=== PATIENT | male | born 1955 | race Caucasian/White ===

== ENCOUNTER 2019-04-15 14:42 | Inpatient (IN) ==
[2019-04-15] MEDS ORDERED: methylPREDNISolone SOD SUCC 125 MG/2 ML VIAL IV ONE (14:49)
[2019-04-15] MEDS ORDERED: IPRATROPIUM/ALBUTEROL 3 ML AMPUL.NEB NEB ONE ×2 (14:49→18:57)
--- NOTE | 2019-04-15 14:56 | Emergency Department Note ---
SOB HPI - General Chief Complaint: Shortness of Breath/Dyspnea Stated Complaint: shortness of breath O2 sat 55 Time Seen by Provider: 04/15/19 14:48 Source: patient, family Mode of arrival: wheelchair Limitations: no limitations - History of Present Illness Patient brought in by EMT shortness of breath and wheezing. POA is here with the patient states that he has been having increasing shortness of breath and wheezing with fever the past 2 days. She states he is DNRDNI has agreed that BiPAP would be acceptable. Patient is on nonrebreather mask at this time he arrives with sats very low in the 30s initially. poa states that he has severe COPD for many many years continues smoking. Patient at this time does not even want to use the nonrebreather mask Temperature is 98.5 his pulse is 100 respiratory rate 26 blood pressure 147/90 initial pulse I was 55% on room air when he arrives his sats are running 99-100 on nonrebreather mask at this time. Patient denies any chest pain pain patient is refusing BiPAP and DuoNeb he states he wants comfort care only - Related Data Home Medications Medication Instructions Recorded Confirmed albuterol 90 mcg/actuation aerosol 2 puff INHALATION QID PRN 04/04/17 04/14/19 inhaler budesonide-formoterol HFA 160 2 inh INHALATION BID 04/04/17 04/14/19 mcg-4.5 mcg/actuation aerosol inhaler carvedilol 3.125 mg tablet 3.125 mg PO BID 04/04/17 04/14/19 cholecalciferol (vitamin D3) 1,000 2,000 unit PO QDAY cap 04/04/17 04/14/19 unit capsule clopidogrel 75 mg tablet 75 mg PO QDAY 04/04/17 04/14/19 guaifenesin ER 600 mg tablet, 600 mg PO BID tab 04/04/17 04/14/19 extended release 12 hr ipratropium-albuterol 0.5 mg-3 3 ml INHALATION QID ml 04/04/17 04/14/19 mg(2.5 mg base)/3 mL nebulization soln losartan 100 mg tablet 100 mg PO QDAY 04/04/17 04/14/19 losartan 50 mg tablet 50 mg PO QDAY 04/04/17 04/14/19 magnesium oxide 420 mg tablet 420 mg PO BID 04/04/17 04/14/19 multivitamin capsule 1 tab-cap PO QDAY 04/04/17 04/14/19 pantoprazole 40 mg tablet,delayed 40 mg PO QAM 04/04/17 04/14/19 release pravastatin 40 mg tablet 40 mg PO QDAY tab 04/04/17 04/14/19 pravastatin 80 mg tablet 80 mg PO QDAY tab 04/04/17 04/14/19 thiamine HCl (vitamin B1) 100 mg 100 mg PO QDAY 04/04/17 04/14/19 tablet vitamin B complex capsule 1 cap PO QDAY 04/04/17 04/14/19 amlodipine 10 mg tablet 10 mg PO QDAY 12/31/18 04/14/19 bisoprolol fumarate 5 mg tablet 5 mg PO QDAY 12/31/18 04/14/19 calcium carbonate-vitamin D3 600 1 cap PO QDAY cap 12/31/18 04/14/19 mg calcium-200 unit capsule cyanocobalamin (vit B-12) 500 mcg 500 mcg PO QDAY 12/31/18 04/14/19 tablet doxycycline monohydrate 100 mg 100 mg PO BID 12/31/18 04/14/19 capsule fluconazole 100 mg tablet 200 mg PO QDAY 12/31/18 04/14/19 food supplement, lactose-reduced each PO TID ml 12/31/18 04/14/19 oral liquid loperamide 2 mg capsule 2 mg PO Q2-4H PRN 12/31/18 04/14/19 melatonin 3 mg tablet 6 mg PO HS PRN tab 12/31/18 04/14/19 omeprazole 20 mg capsule,delayed 20 mg PO BID cap 12/31/18 04/14/19 release prednisone 10 mg tablet 10 mg PO QDAY 12/31/18 04/14/19 pyridoxine (vitamin B6) 50 mg 100 mg PO QDAY cap 12/31/18 04/14/19 capsule sildenafil 100 mg tablet 100 mg PO ONCE 12/31/18 04/14/19 tamsulosin 0.4 mg capsule 0.4 mg PO QDAY 12/31/18 04/14/19 tiotropium bromide 18 mcg capsule 1 cap INHALATION QDAY 12/31/18 04/14/19 with inhalation device minocycline 100 mg capsule 100 mg PO BID 01/01/19 04/14/19 Allergies Allergy/AdvReac Type Severity Reaction Status Date / Time lisinopril Allergy Severe Anaphylaxis Verified 04/15/19 14:46 Varenicline AdvReac Mild Vomiting Verified 04/15/19 14:46 Review of Systems All systems ED: reviewed and negative except as stated. Constitutional: Reports: fever Eyes: Denies: eye pain ENT ED: Denies: ear pain, throat pain, dental pain Past Medical History - Past Medical History Medical history: Reports: COPD, CVA, liver disease, other (, peripheral vascular disease, recent urinary retention.) Surgical history ED: Reports: angioplasty/stent, appendectomy, vascular surgery - Social History smoking status: Current every day smoker Alcohol use: Reports: None Drug use: Reports: none Physical Exam Limitations: no limitations Course Vital Signs Temperature 98.5 F 04/15/19 14:43 Pulse Rate 100 H 04/15/19 14:43 Respiratory Rate 26 H 04/15/19 14:43 Blood Pressure 147/90 04/15/19 14:43 Pulse Oximetry (%) 55 L 04/15/19 14:43 Temperature 98.5 F 04/15/19 14:43 Pulse Rate 77 04/15/19 17:15 Respiratory Rate 25 H 04/15/19 17:30 Blood Pressure 143/82 04/15/19 17:30 Pulse Oximetry (%) 89 L 04/15/19 17:30 Shortness of Breath/Dyspnea - [facility] Narrative Medical decision making narrative: ABG show pH of 7.27 the CO2 64 the O2 is 104. Patient refuses BiPAP was refusing initially the DuoNeb however we were able to convince him to use the DuoNeb and the Solu-Medrol and does not want anything done he wants comfort care only and confirmed he is DNR/DNIUA shows greater than 182 WBCs and 10 RBCs few bacteria culture and sensitivity as indicated WBCs 5500 to hemoglobin 13.8 hematocrit of 42.1 Actiq acid is 1.4 sodium is 119 the potassium 4.4 function tests elevated AST is 84 ALT of 58 alk phosphatase 255 patient does drink alcohol patient does have home O2. ~The low sodium and the UTI patient has agreed to stay Dr. Germain will be contacted - Lab Data Result diagrams: 04/15/19 14:53 04/15/19 14:52 Lab Results 04/15/19 04/15/19 04/15/19 Range/Units 14:52 14:52 14:53 WBC 5.5 (4.5-11.0) K/mcL RBC 4.40 L (4.50-5.90) M/mcL Hgb 13.8 (13.5-16.5) g/dL Hct 42.1 (41.0-55.0) % MCV 95.5 (80.0-100.0) fL MCH 31.3 (26.0-34.0) pg MCHC 32.8 (31.0-36.0) g/dL RDW 16.4 H (11.5-14.5) % Plt Count 326 (140-440) K/mcL MPV 7.6 (7.4-10.4) fL Total Counted 100 Seg Neutrophils % 87 H (38-78) % Band Neutrophils % 2 (0-10) % Lymphocytes % 6 L (15-49) % Monocytes % (Manual) 5 (1-12) % Platelet Estimate Normal (NORMAL) RBC Morphology Abnorm A (NORMAL) Anisocytosis 1+ A (NONE SEEN) Target Cells Few A (NONE SEEN) Ovalocytes Few A (NONE SEEN) RBC Fragments Few A (NONE SEEN) VBG Lactic Acid 1.4 (0.5-2.0) mmol/L Sodium 119 L* (133-145) mmol/L Potassium 4.4 (3.3-5.1) mmol/L Chloride 79 L (96-108) mmol/L Carbon Dioxide 25 (22-30) mmol/L Anion Gap 15.0 (8-16) BUN 5 L (8-23) mg/dl Creatinine 0.3 L (0.7-1.2) mg/dl GFR Calculation 143 Glucose 113 H (70-105) mg/dL Calcium 8.5 L (8.6-10.4) mg/dl Total Bilirubin 0.3 (0.0-1.0) mg/dL AST 84 H (0-37) U/l ALT 58 H (0-40) U/l Alkaline Phosphatase 255 H (39-117) U/L NT-Pro-B Natriuret Pep 1079.0 H (0-125) pg/ml Total Protein 6.3 (5.9-8.4) gm/dL Albumin 3.6 (3.2-5.2) gm/dL Globulin 2.7 (2.2-3.7) gm/dL Albumin/Globulin Ratio 1.3 (1.0-2.3) Urine Color Urine Appearance Urine pH (5.0-9.0) Ur Specific [place] (1.000-1.035) Urine Protein (NEG) mg/dL Urine Glucose (UA) (NEG) mg/dL Urine Ketones (NEG) mg/dL Urine Occult Blood (<0.03) mg/dL Urine Nitrate (NEG) Urine Bilirubin (NEG) mg/dL Urine Urobilinogen (NEG) mg/dL Ur Leukocyte Esterase (NEG) /uL Urine RBC (0-1) /hpf Urine WBC (0-4) /hpf Ur Squamous Epith Cells (0-4) /hpf Urine Bacteria (0) /hpf Urine Mucus (0) /hpf Ur Culture Indicated? 04/15/19 Range/Units 15:56 WBC (4.5-11.0) K/mcL RBC (4.50-5.90) M/mcL Hgb (13.5-16.5) g/dL Hct (41.0-55.0) % MCV (80.0-100.0) fL MCH (26.0-34.0) pg MCHC (31.0-36.0) g/dL RDW (11.5-14.5) % Plt Count (140-440) K/mcL MPV (7.4-10.4) fL Total Counted Seg Neutrophils % (38-78) % Band Neutrophils % (0-10) % Lymphocytes % (15-49) % Monocytes % (Manual) (1-12) % Platelet Estimate (NORMAL) RBC Morphology (NORMAL) Anisocytosis (NONE SEEN) Target Cells (NONE SEEN) Ovalocytes (NONE SEEN) RBC Fragments (NONE SEEN) VBG Lactic Acid (0.5-2.0) mmol/L Sodium (133-145) mmol/L Potassium (3.3-5.1) mmol/L Chloride (96-108) mmol/L Carbon Dioxide (22-30) mmol/L Anion Gap (8-16) BUN (8-23) mg/dl Creatinine (0.7-1.2) mg/dl GFR Calculation Glucose (70-105) mg/dL Calcium (8.6-10.4) mg/dl Total Bilirubin (0.0-1.0) mg/dL AST (0-37) U/l ALT (0-40) U/l Alkaline Phosphatase (39-117) U/L NT-Pro-B Natriuret Pep (0-125) pg/ml Total Protein (5.9-8.4) gm/dL Albumin (3.2-5.2) gm/dL Globulin (2.2-3.7) gm/dL Albumin/Globulin Ratio (1.0-2.3) Urine Color Yellow Urine Appearance Cloudy Urine pH 7.0 (5.0-9.0) Ur Specific [place] 1.010 (1.000-1.035) Urine Protein 100 A (NEG) mg/dL Urine Glucose (UA) Negative (NEG) mg/dL Urine Ketones 5/tr A (NEG) mg/dL Urine Occult Blood 0.03 A (<0.03) mg/dL Urine Nitrate Neg (NEG) Urine Bilirubin Neg (NEG) mg/dL Urine Urobilinogen 2.0 A (NEG) mg/dL Ur Leukocyte Esterase 500 A (NEG) /uL Urine RBC 10 H (0-1) /hpf Urine WBC > 182 H (0-4) /hpf Ur Squamous Epith Cells 0 (0-4) /hpf Urine Bacteria Few A (0) /hpf Urine Mucus Few (0) /hpf Ur Culture Indicated? Yes Disposition Pt seen by [facility] only: No Clinical Impression: Hyponatremia, COPD exacerbation, UTI (urinary tract infection) Disposition: Xfer As Inpt ([facility]) Condition: Fair Referrals: Denice Bernabe ARNP [Primary Care Provider] -
--- NOTE | 2019-04-15 15:42 | XRay Report ---
CLINICAL INFORMATION: shortness of breath COMPARISON: 04/25/2018 plain film and chest CT 02/04/2018 FINDINGS: Heart size, mediastinum and pulmonary vessels are unremarkable. Known moderate COPD changes with minimal interstitial fibrosis stable. No acute findings. No effusions. Bones and soft tissues normal IMPRESSION: Moderate stable COPD changes Interpreted and Authenticated by: Cristi Dove 04/15/19
[2019-04-15 15:49] LABS: Hematocrit 42.1 % (41.0-55.0); Hemoglobin 13.8 g/dL (13.5-16.5); Mean Cell Volume 95.5 fL (80.0-100.0); Mean Corpuscular HGB Conc 32.8 g/dL (31.0-36.0); Mean Platelet Volume 7.6 fL (7.4-10.4); Platelet Count 326 K/mcL (140-440); Red Cell Distribution Width 16.4 % (11.5-14.5); WBC 5.5 K/mcL (4.5-11.0)
[2019-04-15 16:21] LABS: ALT/SGPT 58 U/l (0-40); AST/SGOT 84 U/l (0-37); Albumin 3.6 gm/dL (3.2-5.2); Albumin/Globulin Ratio 1.3 (1.0-2.3); Alkaline Phosphatase 255 U/L (39-117); Bilirubin,Total 0.3 mg/dL (0.0-1.0); Blood Urea Nitrogen 5 mg/dl (8-23); Calcium 8.5 mg/dl (8.6-10.4); Carbon Dioxide 25 mmol/L (22-30); Chloride 79 mmol/L (96-108); Globulin 2.7 gm/dL (2.2-3.7); Glomerular Filtration Rate 143; Glucose 113 mg/dL (70-105); Potassium 4.4 mmol/L (3.3-5.1); Sodium 119 mmol/L (133-145)
[2019-04-15 16:27] LABS: Anisocytosis 1+ (NONE SEEN); Band Neutrophils % 2 % (0-10); Lymphocytes % 6 % (15-49); Monocytes % (Manual) 5 % (1-12); Ovalocytes FEW (NONE SEEN); Platelet Estimate NORMAL (NORMAL); RBC Fragments FEW (NONE SEEN); RBC Morphology ABNORM (NORMAL); Segmented Neutrophils % 87 % (38-78); Target Cells FEW (NONE SEEN)
[2019-04-15 16:36] LABS: Appearance,Urine CLOUDY; Bacteria,Urine FEW /hpf (0); Bilirubin,Urine NEG (NEG); Color,Urine YELLOW; Culture Indicated,Urine YES; Glucose,Urine (UA) NEGATIVE (NEG); Ketones,Urine 5/TR mg/dL (NEG); Leukocyte Esterase,Urine 500 /uL (NEG); Mucus,Urine FEW /hpf (0); Nitrate,Urine NEG (NEG); Protein,Urine 100 mg/dL (NEG); Urine Blood 0.03 mg/dL (<0.03); Urine RBC 10 /hpf (0-1); Urine Squamous Epithelial Cell 0 /hpf (0-4); Urine WBC > 182 /hpf (0-4)
[2019-04-15] MEDS ORDERED: PIPERACILLIN SODIUM/TAZOBACTAM 3.375 GM in DEXTROSE 5% IN WATER 50 ML IV ONE (16:40)
--- NOTE | 2019-04-15 17:43 | Internal Med History&Physical ---
Medical - H&P: HPI Patient information: Note initiated : 04/15/19 at 5:35 pm Service Date, if different from initiated Date: [] Patient: Ankit Gandhi a 63 y/o M admitted on for shortness of breath O2 sat 55. Chief Complaint: [] Chief complaint: Shortness of breath, weakness and fever History of present illness: Mr. Gandhi is a 63 year old M paraplegic with history of advanced COPD and ac tive smoking who presents to the ER with 3 days onset of worsening shortness of breath along with increasing yellow productive sputum, fever. Patient tried to work with the symptoms however by this morning was barely able to breathe or talk prompting him to come to the ER. He denies exposure to sick contact. Endorses to increasing shortness of breath to the point he has not been able to sleep for the last 48 hours. Has become extremely anxious labored with a feeling of impending doom. Initial work-up in the ER was consistent with acute COPD exacerbation with hypercapnia with a pH of 7.27/64 PCO2. Patient was also profoundly hyponatremic at 119 and demonstrated fluctuating mental status. 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 He is accompanied with his sister. He has paraplegic since 2-1/2 years ago and confined to bed with occasional mobility using a wheelchair. He has a friend who helps him with activities of daily living. Over time he has progressively lost weight and currently down to a BMI of 15. He denies diarrhea, headache, photophobia. He has a chronic indwelling Sanchez's catheter and sees Dr. Fernandes urologist. He denies joint pain, rash, glandular swelling. Review of systems 10 point review of system was performed and is negative except was discussed above Medical - H&P: PMH Medical history: Wheelchair bound (Chronic) Decreased sensation of lower extremity (Chronic) Lower extremity weakness (Chronic) Vascular disease (Chronic) Hypertension (Chronic) Bladder distention (Chronic) Pelvic pain in male (Chronic) Paraplegia (Chronic) Retention of urine (Chronic) UTI (urinary tract infection) (Chronic) Contusion of rib on right side (Chronic) Migraine (Chronic) Stroke (Chronic) Bruit (Chronic) Colonic polyp (Chronic) Benign essential hypertension (Chronic) Hyponatremia (Chronic) Lumbago (Chronic) Depressive disorder (Chronic) Hyperlipidemia, unspecified (Chronic) Neuralgia and neuritis, unspecified (Chronic) Migraine, unspecified, not intractable, without status migrainosus (Chronic) Symptoms involving cardiovascular system (Chronic) Reflux esophagitis (Chronic) Esophageal reflux (Chronic) Sensorineural hearing loss (Chronic) Peripheral vascular disease (Chronic) Benign neoplasm of large bowel (Chronic) Disc degeneration, lumbosacral (Chronic) Fracture of metacarpal neck, closed (Chronic) Alcohol dependence in remission (Chronic) Shoulder joint pain (Chronic) Rotator cuff syndrome (Chronic) Abnormal liver function test (Chronic) Alcohol abuse with unspecified alcohol-induced disorder (Chronic) Tobacco use (Chronic) Chronic obstructive pulmonary disease, unspecified (Chronic) Brain stem stroke syndrome (Chronic) Angioneurotic edema, subsequent encounter (Chronic) Edema, unspecified (Chronic) Hypo-osmolality and hyponatremia (Chronic) Other nonspecific abnormal finding of lung field (Chronic) Essential (primary) hypertension (Chronic) Contusion of thorax, unspecified, sequela (Chronic) Collapse of right lung (Chronic) Surgical History History of [id number] bypass (Chronic) History of appendectomy (Chronic) History of fusion of cervical spine (Chronic) History of hand surgery (Chronic) Right History of tonsillectomy (Chronic) Family History Father Lung cancer Heart attack Throat cancer Mother Breast cancer Sister , with breast cancer Breast cancer Grandfather Heart attack Social History service: Yes smoking status: Current every day 1.5 Pk smoker tobacco type: cigarettes quit status: not considering quitting alcohol intake frequency: 2+ drinks per day substance use type: does not use additional history: 18 Beers a day Medical - H&P: Meds Home Medications Medication Instructions Recorded Confirmed Type albuterol 90 mcg/actuation aerosol 2 puff INHALATION QID PRN 04/04/17 04/14/19 History inhaler budesonide-formoterol HFA 160 2 inh INHALATION BID 04/04/17 04/14/19 History mcg-4.5 mcg/actuation aerosol inhaler carvedilol 3.125 mg tablet 3.125 mg PO BID 04/04/17 04/14/19 History cholecalciferol (vitamin D3) 1,000 2,000 unit PO QDAY cap 04/04/17 04/14/19 History unit capsule clopidogrel 75 mg tablet 75 mg PO QDAY 04/04/17 04/14/19 History guaifenesin ER 600 mg tablet, 600 mg PO BID tab 04/04/17 04/14/19 History extended release 12 hr ipratropium-albuterol 0.5 mg-3 3 ml INHALATION QID ml 04/04/17 04/14/19 History mg(2.5 mg base)/3 mL nebulization soln losartan 100 mg tablet 100 mg PO QDAY 04/04/17 04/14/19 History losartan 50 mg tablet 50 mg PO QDAY 04/04/17 04/14/19 History magnesium oxide 420 mg tablet 420 mg PO BID 04/04/17 04/14/19 History multivitamin capsule 1 tab-cap PO QDAY 04/04/17 04/14/19 History pantoprazole 40 mg tablet,delayed 40 mg PO QAM 04/04/17 04/14/19 History release pravastatin 40 mg tablet 40 mg PO QDAY tab 04/04/17 04/14/19 History pravastatin 80 mg tablet 80 mg PO QDAY tab 04/04/17 04/14/19 History thiamine HCl (vitamin B1) 100 mg 100 mg PO QDAY 04/04/17 04/14/19 History tablet vitamin B complex capsule 1 cap PO QDAY 04/04/17 04/14/19 History amlodipine 10 mg tablet 10 mg PO QDAY 12/31/18 04/14/19 History bisoprolol fumarate 5 mg tablet 5 mg PO QDAY 12/31/18 04/14/19 History calcium carbonate-vitamin D3 600 1 cap PO QDAY cap 12/31/18 04/14/19 History mg calcium-200 unit capsule cyanocobalamin (vit B-12) 500 mcg 500 mcg PO QDAY 12/31/18 04/14/19 History tablet doxycycline monohydrate 100 mg 100 mg PO BID 12/31/18 04/14/19 History capsule fluconazole 100 mg tablet 200 mg PO QDAY 12/31/18 04/14/19 History food supplement, lactose-reduced each PO TID ml 12/31/18 04/14/19 History oral liquid loperamide 2 mg capsule 2 mg PO Q2-4H PRN 12/31/18 04/14/19 History melatonin 3 mg tablet 6 mg PO HS PRN tab 12/31/18 04/14/19 History omeprazole 20 mg capsule,delayed 20 mg PO BID cap 12/31/18 04/14/19 History release prednisone 10 mg tablet 10 mg PO QDAY 12/31/18 04/14/19 History pyridoxine (vitamin B6) 50 mg 100 mg PO QDAY cap 12/31/18 04/14/19 History capsule sildenafil 100 mg tablet 100 mg PO ONCE 12/31/18 04/14/19 History tamsulosin 0.4 mg capsule 0.4 mg PO QDAY 12/31/18 04/14/19 History tiotropium bromide 18 mcg capsule 1 cap INHALATION QDAY 12/31/18 04/14/19 History with inhalation device minocycline 100 mg capsule 100 mg PO BID 01/01/19 04/14/19 History Allergies Allergy/AdvReac Type Severity Reaction Status Date / Time lisinopril Allergy Severe Anaphylaxis Verified 04/15/19 14:46 Varenicline AdvReac Mild Vomiting Verified 04/15/19 14:46 Medical - H&P: Exam - Constitutional Vitals: Temp Pulse Resp BP Pulse Ox 98.5 F 77 25 H 143/82 89 L 04/15/19 14:43 04/15/19 17:15 04/15/19 17:30 04/15/19 17:30 04/15/19 17:30 General appearance: severe distress, thin Exam: Extremely short of breath labored and distressed Unable to talk in full sentences Fluctuating mentation Head normocephalic Temporal wasting oral cavity dry No ear nose discharge Tachypneic with widespread rhonchi, intercostal retractions/barrel chest S1-S2 tachycardia Abdomen scaphoid Sanchez's catheter Lower extremity paralyzed without motor or sensory function Skin no suspicious lesion except for pallor Psych lethargic but cooperative Neuro waist down paraplegic, fluctuating mental status Medical - H&P: Reslt - Labs CBC & Chem 7: 04/16/19 03:50 04/16/19 08:26 Labs: Short CBC 04/15/19 Range/Units 14:53 WBC 5.5 (4.5-11.0) K/mcL Hgb 13.8 (13.5-16.5) g/dL Hct 42.1 (41.0-55.0) % Plt Count 326 (140-440) K/mcL BMP 04/15/19 14:52 Sodium 119 L* Potassium 4.4 Chloride 79 L Carbon Dioxide 25 BUN 5 L Creatinine 0.3 L Glucose 113 H Calcium 8.5 L Liver Function 04/15/19 Range/Units 14:52 Total Bilirubin 0.3 (0.0-1.0) mg/dL AST 84 H (0-37) U/l ALT 58 H (0-40) U/l Alkaline Phosphatase 255 H (39-117) U/L Albumin 3.6 (3.2-5.2) gm/dL Urine 04/15/19 Range/Units 15:56 Urine Color Yellow Urine Appearance Cloudy Urine pH 7.0 (5.0-9.0) Ur Specific [place] 1.010 (1.000-1.035) Urine Protein 100 A (NEG) mg/dL Urine Glucose (UA) Negative (NEG) mg/dL Medical - H&P: A/P (1) Acute hypercapnic respiratory failure Current visit: Yes Status: Acute * Acute hypercapnic respiratory failure secondary to COPD exacerbation. pH 7.27. Initiate BiPAP. Transfer to ICU. Serial ABG * COPD exacerbation-secondary to smoking likely precipitated by infection. Start bronchodilators/IV steroids/supplemental oxygen and antibiotic coverage. High risk mortality. Patient follows up outpatient with Dr. Colindres.. * Severe hyponatremia likely secondary to excessive alcoholism. Check urine and serum osmolality with urine sodium. Rule out SIADH. Continue 4 hours sodium checks. Close seizure watch/neurochecks * Complicated UTI start antibiotic [id number] based on cultures. Renal ultrasound to rule out obstructive uropathy. * Elevated LFTs secondary to sepsis endorgan dysfunction/underlying alcoholism. 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 * Continue noninvasive ventilation * 4 hourly sodium checks/neuro check/seizure watch * Antibiotic coverage * Renal ultrasound Critical care time spent over 35 minutes on stabilizing patient/treatment coordination/labs blood gas imaging interpretation in addition to 70 minutes spent on history and physical
[2019-04-15] MEDS ORDERED: MELATONIN 3 MG TABLET PO PRN (18:27)
[2019-04-15] MEDS ORDERED: traZODone HCL 50 MG TABLET PO PRN (18:27)
[2019-04-15] MEDS ORDERED: ACETAMINOPHEN 1,000 MG/100 ML BOTTLE IV PRN (18:27)
[2019-04-15] MEDS ORDERED: ONDANSETRON 4 MG/2 ML VIAL IV PRN (18:27)
[2019-04-15] MEDS ORDERED: POTASSIUM CHLORIDE 20 MEQ PACKET PO PRN (18:27)
[2019-04-15] MEDS ORDERED: MAGNESIUM SULFATE 2 GM/50 ML BAG IV PRN (18:27)
[2019-04-15] MEDS ORDERED: ACETAMINOPHEN 325 MG TABLET PO PRN (18:27)
[2019-04-15] MEDS ORDERED: BISACODYL 10 MG SUPP.RECT PR PRN (18:27)
[2019-04-15] MEDS ORDERED: hydrALAZINE 20 MG/ML VIAL IV PRN (18:27)
[2019-04-15] MEDS ORDERED: MAGNESIUM HYDROXIDE 30 ML ORAL.SUSP PO PRN (18:27)
[2019-04-15] MEDS ORDERED: guaiFENesin/CODEINE 10 ML UDC PO PRN (18:27)
[2019-04-15] MEDS ORDERED: BUDESONIDE 0.5 MG/2 ML AMPUL.NEB NEB ONE (18:57)
[2019-04-15 19:05] LABS: Sodium, Urine Random 44 mmol/L
[2019-04-15] MEDS: IPRATROPIUM/ALBUTEROL 3 ML AMPUL.NEB NEB SCH ×2 (19:11→22:33)
[2019-04-15] MEDS: BUDESONIDE 0.5 MG/2 ML AMPUL.NEB NEB SCH (19:12)
[2019-04-15 19:15] LABS: Osmolality,Urine 272 mOsm/kg (80-1000)
[2019-04-15] MEDS: 0.9 % SODIUM CHLORIDE 1,000 ML IV SCH (19:38)
[2019-04-15] MEDS: METOPROLOL TARTRATE 5 MG/5 ML VIAL IV SCH ×2 (19:51→19:52)
[2019-04-15] MEDS: DOCUSATE SODIUM 100 MG CAPSULE PO SCH (19:53)
[2019-04-15] MEDS: SENNOSIDES/DOCUSATE SODIUM 1 TAB TABLET PO SCH (19:53)
[2019-04-15] MEDS: HEPARIN 5,000 UNIT/ML VIAL SQ SCH (20:04)
[2019-04-15] MEDS: methylPREDNISolone SOD SUCC 125 MG/2 ML VIAL IV SCH ×2 (20:04→23:56)
[2019-04-15] MEDS: CYANOCOBALAMIN (VITAMIN B-12) 500 MCG TABLET PO SCH (20:04)
[2019-04-15] MEDS: 0.9 % SODIUM CHLORIDE 10 ML SYRINGE IV SCH (20:06)
[2019-04-15 21:30] LABS: Sodium 117 mmol/L (133-145)
[2019-04-15] MEDS ORDERED: BISMUTH SUBSALICYLATE 15 ML ORAL.SUSP PO PRN (23:11)
[2019-04-15] MEDS: PIPERACILLIN SODIUM/TAZOBACTAM 3.375 GM in DEXTROSE 5% IN WATER 50 ML IV SCH (23:54)
[2019-04-16 02:26] LABS: Sodium 119 mmol/L (133-145)
[2019-04-16] MEDS: IPRATROPIUM/ALBUTEROL 3 ML AMPUL.NEB NEB SCH ×6 (04:51→23:26)
[2019-04-16] MEDS: PIPERACILLIN SODIUM/TAZOBACTAM 3.375 GM in DEXTROSE 5% IN WATER 50 ML IV SCH ×3 (05:21→17:34)
[2019-04-16] MEDS: 0.9 % SODIUM CHLORIDE 10 ML SYRINGE IV SCH ×3 (05:21→22:02)
[2019-04-16] MEDS: methylPREDNISolone SOD SUCC 125 MG/2 ML VIAL IV SCH ×3 (05:22→18:06)
[2019-04-16 05:30] LABS: Hematocrit 39.5 % (41.0-55.0); Hemoglobin 13.4 g/dL (13.5-16.5); Mean Cell Volume 92.7 fL (80.0-100.0); Mean Platelet Volume 7.7 fL (7.4-10.4); Platelet Count 294 K/mcL (140-440); RBC 4.26 M/mcL (4.50-5.90); Red Cell Distribution Width 14.8 % (11.5-14.5); WBC 2.2 K/mcL (4.5-11.0)
--- NOTE | 2019-04-16 05:35 | Ultrasound Report ---
CLINICAL INFORMATION: uti- r/o obstr uropathy COMPARISON: Abdomen and pelvic CT nearly one year prior 05/26/2018 abdominal ultrasound 01/04/2009 FINDINGS: Chronic atrophy of the left kidney is unchanged: 6.4 x 3 cm. Left renal parenchyma is echogenic and thin. There is compensatory hypertrophy of the right kidney appreciated: 12 x 6 cm. Parenchymal echotexture of the right kidney is normal. There are no right renal lesions. In the mid kidney, there is a 14 mm hypoechoic lesion which was not seen on previous study. This may represent a solid lesion or complex cyst. There are three smaller subcentimeter cysts seen in the left kidney. No hydronephrosis or stone. Patient was catheterized: urine bladder grossly normal. IMPRESSION: 1. 14 mm hypoechoic lesion mid left kidney new from previous studies. It is more likely complex cyst than a solid lesion. Suggest: CT. If creatinine is elevated then MR is suggested. 2-3 subcentimeter cystic lesions in the left kidney 2. Moderate atrophy of the left kidney with elevated renal echotexture compatible with medical renal disease. No change. Compensatory hypertrophy of the right kidney Interpreted and Authenticated by: Cristi Dove 04/16/19
[2019-04-16 05:40] LABS: ALT/SGPT 51 U/l (0-40); AST/SGOT 67 U/l (0-37); Albumin 3.2 gm/dL (3.2-5.2); Albumin/Globulin Ratio 1.1 (1.0-2.3); Alkaline Phosphatase 218 U/L (39-117); Bilirubin,Direct < 0.2 mg/dL (0.0-0.3); Bilirubin,Total 0.2 mg/dL (0.0-1.0); Blood Urea Nitrogen 7 mg/dl (8-23); Calcium 7.7 mg/dl (8.6-10.4); Carbon Dioxide 23 mmol/L (22-30); Chloride 79 mmol/L (96-108); Globulin 2.8 gm/dL (2.2-3.7); Glomerular Filtration Rate 143; Glucose 96 mg/dL (70-105); Lactate Dehydrogenase 236 U/L (94-250); Magnesium 1.8 mg/dL (1.6-2.5); Phosphorous 2.9 mg/dL (2.7-4.5); Potassium 3.5 mmol/L (3.3-5.1); Sodium 120 mmol/L (133-145); Triglycerides 54 mg/dl (<150); Uric Acid 2.2 mg/dL (2.5-8.0)
[2019-04-16] MEDS: BUDESONIDE 0.5 MG/2 ML AMPUL.NEB NEB SCH ×2 (07:15→18:53)
[2019-04-16 08:03] LABS: Band Neutrophils % 4 % (0-10); Lymphocytes % 14 % (15-49); Monocytes % (Manual) 2 % (1-12); Platelet Estimate NORMAL (NORMAL); Polychromasia 1+ (NONE SEEN); RBC Fragments RARE (NONE SEEN); RBC Morphology ABNORM (NORMAL); Reactive Lymphocytes 1 % (0-2); Segmented Neutrophils % 79 % (38-78)
[2019-04-16] MEDS: NACL 0.9% W/KCL 20MEQ 1,000 ML IV SCH ×2 (09:56→17:05)
[2019-04-16] MEDS: FUROSEMIDE 20 MG/2 ML VIAL IV SCH ×3 (09:59→22:21)
[2019-04-16 10:00] LABS: Sodium 118 mmol/L (133-145)
[2019-04-16] MEDS: HEPARIN 5,000 UNIT/ML VIAL SQ SCH ×2 (10:05→22:21)
--- NOTE | 2019-04-16 10:22 | Internal Med Progress Note ---
Medical - PN: Subj Patient information: Note initiated : 04/16/19 at 10:20 am Service Date, if different from initiated Date: [] Patient: Ankit Gandhi a 63 y/o M admitted on 04/15/19 for shortness of breath O2 sat 55. Chief Complaint: [] Interval history: Mr. Gandhi is a 63 year old M paraplegic with history of advanced COPD and active smoking who presents to the ER with 3 days onset of worsening shortness of breath along with increasing yellow productive sputum, fever. Patient tried to work with the symptoms however by this morning was barely able to breathe or talk prompting him to come to the ER. He denies exposure to sick contact. Endorses to increasing shortness of breath to the point he has not been able to sleep for the last 48 hours. Has become extremely anxious labored with a feeling of impending doom. Initial work-up in the ER was consistent with acute COPD exacerbation with hypercapnia with a pH of 7.27/64 PCO2. Patient was also profoundly hyponatremic at 119 and demonstrated fluctuating mental status. 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 He is accompanied with his sister. He has paraplegic since 2-1/2 years ago and confined to bed with occasional mobility using a wheelchair. He has a friend who helps him with activities of daily living. Over time he has progressively lost weight and currently down to a BMI of 15. He denies diarrhea, headache, photophobia. He has a chronic indwelling Sanchez's catheter and sees Dr. Fernandes urologist. He denies joint pain, rash, glandular swelling. 04/17-patient critically ill with worsening shortness of breath. Unable to sleep last night. Unable to talk in full sentences. Persistent hypoxia with tachypnea and tachycardia requiring 4 L oxygen. Requesting something to sleep. Patient refusing noninvasive ventilation due to claustrophobia. Understands these risk for imminent . Continue steroids/bronchodilators. Sodium 118. Urine osmolality greater than serum osmolarity indicating component of SIADH. On antibiotic coverage for complicated UTI. GNR on urine culture - Constitutional Vitals: Vital Signs Temp Pulse Resp BP Pulse Ox 98.1 F 97 H 22 155/74 94 04/16/19 08:01 04/16/19 08:01 04/16/19 08:20 04/16/19 08:01 04/16/19 08:01 Period Temp Pulse Resp BP Sys/Hensley Pulse Ox Last 24 Hr 97.7 F-98.5 F 72-122 17-44 118-168/65-152 55-100 Intake and Output 04/15/19 04/16/19 04/16/19 21:59 05:59 13:59 Intake Total 50 590 50 Output Total 800 1200 Balance -750 -610 50 Weight 108 lb 14.4 oz Intake & Output: Intake & Output 04/15/19 04/16/19 04/16/19 21:59 05:59 13:59 Intake Total 50 590 50 Output Total 800 1200 Balance -750 -610 50 Weight 108 lb 14.4 oz Intake: IV 50 50 Zosyn 3.375 gm In Dextrose 5% 50 50 in Water 50 ml @ 100 mls/hr IV Q6H SAL Rx#:[id number] Oral 540 50 Output: Urine Catheter Amount 800 1200 Other: Urine Appearance Cloudy Clear Urine Color Dark Yellow Pale Urine Odor Uretheral (Sanchez) Normal Exam: Cachectic and thin extremely labored and anxious In distress Extensive rhonchi, barrel chest Temporal and extensive muscular wasting/atrophy Medical - PN: Obj Da - Labs CBC & Chem 7: 04/16/19 03:50 04/16/19 08:26 Labs: Abnormal Lab Results 04/16/19 04/16/19 04/16/19 08:26 03:50 03:50 WBC 2.2 L RBC 4.26 L Hgb 13.4 L Hct 39.5 L RDW 14.8 H Seg Neutrophils % 79 H Lymphocytes % 14 L RBC Morphology Abnorm A Polychromasia 1+ A Anisocytosis Target Cells Ovalocytes RBC Fragments Rare A Sodium 118 L* 120 L Chloride 79 L Anion Gap 18.0 H BUN 7 L Creatinine 0.3 L Glucose Osmolality Uric Acid 2.2 L Calcium 7.7 L GGT 172 H AST 67 H ALT 51 H Alkaline Phosphatase 218 H NT-Pro-B Natriuret Pep Urine Protein Urine Ketones Urine Occult Blood Urine Urobilinogen Ur Leukocyte Esterase Urine RBC Urine WBC Urine Bacteria 04/16/19 04/15/19 04/15/19 00:10 19:57 18:27 WBC RBC Hgb Hct RDW Seg Neutrophils % Lymphocytes % RBC Morphology Polychromasia Anisocytosis Target Cells Ovalocytes RBC Fragments Sodium 119 L* 117 L* Chloride Anion Gap BUN Creatinine Glucose Osmolality 245 L Uric Acid Calcium GGT AST ALT Alkaline Phosphatase NT-Pro-B Natriuret Pep Urine Protein Urine Ketones Urine Occult Blood Urine Urobilinogen Ur Leukocyte Esterase Urine RBC Urine WBC Urine Bacteria 04/15/19 04/15/19 04/15/19 15:56 14:53 14:52 WBC RBC 4.40 L Hgb Hct RDW 16.4 H Seg Neutrophils % 87 H Lymphocytes % 6 L RBC Morphology Abnorm A Polychromasia Anisocytosis 1+ A Target Cells Few A Ovalocytes Few A RBC Fragments Few A Sodium 119 L* Chloride 79 L Anion Gap BUN 5 L Creatinine 0.3 L Glucose 113 H Osmolality Uric Acid Calcium 8.5 L GGT AST 84 H ALT 58 H Alkaline Phosphatase 255 H NT-Pro-B Natriuret Pep 1079.0 H Urine Protein 100 A Urine Ketones 5/tr A Urine Occult Blood 0.03 A Urine Urobilinogen 2.0 A Ur Leukocyte Esterase 500 A Urine RBC 10 H Urine WBC > 182 H Urine Bacteria Few A Meds: Medications Acetaminophen (Tylenol) 650 mg PO Q4-6HP PRN PRN Reason: PAIN/FEVER > 101 Albuterol/Ipratropium (Duoneb) 3 ml NEB Q4HRT [facility] Last Admin: 04/16/19 07:15 Dose: 3 ml Documented by: Bisacodyl (Dulcolax) 10 mg WV Q2-3DAYS PRN PRN Reason: Constipation Bismuth Subsalicylate (Pepto Bismol) 15 ml PO Q4HP PRN PRN Reason: Dyspepsia Last Admin: 04/15/19 23:25 Dose: 15 ml Documented by: Budesonide (Pulmicort) 0.5 mg NEB Q12 [facility] Last Admin: 04/16/19 07:15 Dose: 0.5 mg Documented by: Cyanocobalamin (Vitamin B-12) 1,000 mcg PO BID [facility] Stop: 04/20/19 09:01 Last Admin: 04/15/19 20:04 Dose: 1,000 mcg Documented by: Docusate Sodium (Colace) 100 mg PO BID [facility] Last Admin: 04/15/19 19:53 Dose: Not Given Documented by: Folic Acid (Folic Acid) 1 mg PO DAILY [facility] Furosemide (Lasix) 20 mg IV Q8 [facility] Stop: 04/16/19 22:01 Last Admin: 04/16/19 09:59 Dose: 20 mg Documented by: Guaifenesin/Codeine Phosphate (Robitussin Ac) 10 ml PO Q4HP PRN PRN Reason: Cough Heparin Sodium (Porcine) (Heparin) 5,000 unit SQ Q12 [facility] Last Admin: 04/16/19 10:05 Dose: 5,000 unit Documented by: Hydralazine HCl (Apresoline) 10 mg IV Q4-6HP PRN PRN Reason: Hypertension Magnesium Sulfate (Magnesium Sulfate) 2 gm in 50 mls @ 50 mls/hr IV UD PRN PRN Reason: MG = or < 1.7 Sodium Chloride (Sodium Chloride 0.9%) 1,000 mls @ 50 mls/hr IV .Q20H [facility] Stop: 04/18/19 06:26 Last Admin: 04/15/19 19:38 Dose: 50 mls/hr Documented by: Acetaminophen (Ofirmev) 1,000 mg in 100 mls @ 200 mls/hr IV Q6HP PRN PRN Reason: PAIN/FEVER > 101 Last Admin: 04/16/19 08:07 Dose: 200 mls/hr Documented by: Piperacillin Sod/Tazobactam (Sod 3.375 gm/ Dextrose) 50 mls @ 100 mls/hr IV Q6H [facility]; Protocol Last Admin: 04/16/19 05:21 Dose: 100 mls/hr Documented by: Potassium Chloride/Sodium Chloride (Nacl 0.9% W/Kcl 20meq 1000ml) 1,000 mls @ 150 mls/hr IV .Q6H40M [facility] Stop: 04/17/19 08:44 Last Admin: 04/16/19 09:56 Dose: 150 mls/hr Documented by: Iron Carb/Multivit/[place]S/Folic Acid (Multivitamin W/Minerals) 1 tab PO DAILY [facility] Lorazepam (Ativan) 0.5 mg IV Q6HP PRN PRN Reason: ANXIETY/SEDATION Magnesium Hydroxide (Milk Of Magnesia) 30 ml PO HSP PRN PRN Reason: Constipation Melatonin (Melatonin 3mg Tablet) 3 mg PO HSP PRN PRN Reason: Insomnia Methylprednisolone Sodium Succinate (Solu-Medrol) 60 mg IV Q6 [facility] Last Admin: 04/16/19 05:22 Dose: 60 mg Documented by: Morphine Sulfate (Morphine) 1 mg IV Q4HP PRN PRN Reason: PAIN LEVEL > 6 Last Admin: 04/16/19 10:07 Dose: 1 mg Documented by: Ondansetron HCl (Zofran) 4 mg IV Q4-6HP PRN PRN Reason: Nausea And Vomiting Potassium Chloride (Klor-Con) 40 meq PO DAILYP PRN PRN Reason: K+ < 3.5 Senna/Docusate Sodium (Senna Plus Tablet) 1 tab PO HS [facility] Last Admin: 04/15/19 19:53 Dose: Not Given Documented by: Sodium Chloride (Saline Flush) 10 ml IV Q8 [facility] Last Admin: 04/16/19 05:21 Dose: Not Given Documented by: Thiamine HCl (Vitamin B1) 100 mg PO DAILY [facility] Trazodone HCl (Desyrel) 50 mg PO HSP PRN PRN Reason: Insomnia Medical - PN: A/P - Time Spent With Patient Total time spent is greater than 50% in coordination of care (as documented) at patient's floor/unit and/or counseling patient: 25 - 35 minutes (1) Acute hypercapnic respiratory failure Status: Acute Assessment and plan: * Acute hypercapnic respiratory failure secondary to COPD exacerbation. pH 7.27. Patient refused BiPAP. Critically ill. * Acute exacerbation of COPD. Continue IV steroids/bronchodilators/supplemental oxygen and antibiotic coverage. Remains a very high risk mortality. Patient follows up outpatient with Dr. Colindres.. * Severe hyponatremia , SIADH/alcoholism. Continue free water restriction/salt tabs and gentle saline infusion. Target sodium 127 in 24 hours * Complicated GNR UTI -continue antibiotic [id number] based on cultures. Renal ultrasound no evidence of a study uropathy but shows 14 mm left kidney lesion. * 14 mm left kidney lesion-will need further evaluation at a later date * Elevated LFTs secondary to sepsis endorgan dysfunction/underlying alcoholism. 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 * Free water restriction/gentle saline infusion * Protein calorie supplements/multivitamins/minerals Current Visit: Yes Medical - PN: Qual - VTE Deep Vein Thrombosis/Pulmonary Embolism Present on Admission: No
[2019-04-16] MEDS: FOLIC ACID 1 MG TABLET PO SCH (12:09)
[2019-04-16] MEDS: DOCUSATE SODIUM 100 MG CAPSULE PO SCH ×2 (12:12→22:01)
[2019-04-16] MEDS: MULTIVIT,THER IRON,CA,FA & MIN 1 TABLET PO SCH (13:06)
[2019-04-16] MEDS: CYANOCOBALAMIN (VITAMIN B-12) 500 MCG TABLET PO SCH ×2 (13:06→22:02)
[2019-04-16] MEDS: THIAMINE 100 MG TABLET PO SCH (13:06)
[2019-04-16] MEDS: 0.9 % SODIUM CHLORIDE 1,000 ML IV SCH (13:20)
[2019-04-16 14:59] LABS: Sodium 123 mmol/L (133-145)
--- NOTE | 2019-04-16 16:58 | Nephrology Consult Note ---
History of Present Illness - Reason for Consult Patient information: Note initiated : 04/16/19 at 4:55 pm Service Date, if different from initiated Date: [] Patient: Ankit Gandhi 63 y/o M admitted on 04/15/19 for shortness of breath O2 sat 55. Chief Complaint: [] Consult date: 04/16/19 hyponatremia (Chronic) Requesting physician: Kale Kuo - Chief Complaint Shortness of breath - History of Present Illness The patient is a 63 y/o male with near end-stage COPD with marked muscle wasting, chronic SOB and chronic hyponatremia who was admitted to the ICU with a flare of COPD and noted to have a serum sodium in the 117 mEq/L range w/o seizures, obtundation or confusion. Review of the EMR shows that this patient is no stranger to hyponatremia. In addition, he consumes a large amout of daily EtOH. The low BUN/Cr and cachexia suggest he has inadequate protein stores to maximize he urinary diluting capacity and thus has chronic hyponatremia. In 2018 TSH was WNL and I do not see a cortisol level but he does not have hypotension or high potassium to suggest adrenal insufficiency. My plan is f luid restriction with NS IV and TID lasix to induce a half-normal diuresis (with round the clock lasix) and replace with NS, keeping an eye on the K and mag levels. Review of Systems Constitutional: as per HPI, anorexia, weakness, weight loss Cardiovascular: dyspnea on exertion Respiratory: cough, dyspnea, dyspnea on exertion, excessive phlegm production Gastrointestinal: as per HPI Genitourinary: as per HPI Musculoskeletal: as per HPI, atrophy, muscle weakness Neurological: memory loss Psychiatric: as per HPI, abnormal sleep pattern, difficulty concentrating Endocrine: as per HPI Hematologic/Lymphatic: as per HPI Allergic/Immunologic: as per HPI Past History Past medical history: Wheelchair bound (Chronic) Decreased sensation of lower extremity (Chronic) Lower extremity weakness (Chronic) Vascular disease (Chronic) Hypertension (Chronic) Bladder distention (Chronic) Pelvic pain in male (Chronic) Paraplegia (Chronic) Retention of urine (Chronic) UTI (urinary tract infection) (Chronic) Contusion of rib on right side (Chronic) Migraine (Chronic) Stroke (Chronic) Bruit (Chronic) Colonic polyp (Chronic) Benign essential hypertension (Chronic) Hyponatremia (Chronic) Lumbago (Chronic) Depressive disorder (Chronic) Hyperlipidemia, unspecified (Chronic) Neuralgia and neuritis, unspecified (Chronic) Migraine, unspecified, not intractable, without status migrainosus (Chronic) Symptoms involving cardiovascular system (Chronic) Reflux esophagitis (Chronic) Esophageal reflux (Chronic) Sensorineural hearing loss (Chronic) Peripheral vascular disease (Chronic) Benign neoplasm of large bowel (Chronic) Disc degeneration, lumbosacral (Chronic) Fracture of metacarpal neck, closed (Chronic) Alcohol dependence in remission (Chronic) Shoulder joint pain (Chronic) Rotator cuff syndrome (Chronic) Abnormal liver function test (Chronic) Alcohol abuse with unspecified alcohol-induced disorder (Chronic) Tobacco use (Chronic) Chronic obstructive pulmonary disease, unspecified (Chronic) Brain stem stroke syndrome (Chronic) Angioneurotic edema, subsequent encounter (Chronic) Edema, unspecified (Chronic) Hypo-osmolality and hyponatremia (Chronic) Other nonspecific abnormal finding of lung field (Chronic) Essential (primary) hypertension (Chronic) Contusion of thorax, unspecified, sequela (Chronic) Collapse of right lung (Chronic) Surgical History History of cnuin-lgmyu-uofvdam bypass (Chronic) History of appendectomy (Chronic) History of fusion of cervical spine (Chronic) History of hand surgery (Chronic) Right History of tonsillectomy (Chronic) Family History Father Lung cancer Heart attack Throat cancer Mother Breast cancer Sister , with breast cancer Breast cancer Grandfather Heart attack Social History service: Yes smoking status: Current every day 1.5 Pk smoker tobacco type: cigarettes quit status: not considering quitting alcohol intake frequency: 2+ drinks per day substance use type: does not use additional history: 18 Beers a day Medications and Allergies Home Medications Medication Instructions Recorded Confirmed Type albuterol 90 mcg/actuation aerosol 2 puff INHALATION QID PRN 04/04/17 04/14/19 History inhaler budesonide-formoterol HFA 160 2 inh INHALATION BID 04/04/17 04/14/19 History mcg-4.5 mcg/actuation aerosol inhaler carvedilol 3.125 mg tablet 3.125 mg PO BID 04/04/17 04/14/19 History cholecalciferol (vitamin D3) 1,000 2,000 unit PO QDAY cap 04/04/17 04/14/19 History unit capsule clopidogrel 75 mg tablet 75 mg PO QDAY 04/04/17 04/14/19 History guaifenesin ER 600 mg tablet, 600 mg PO BID tab 04/04/17 04/14/19 History extended release 12 hr ipratropium-albuterol 0.5 mg-3 3 ml INHALATION QID ml 04/04/17 04/14/19 History mg(2.5 mg base)/3 mL nebulization soln losartan 100 mg tablet 100 mg PO QDAY 04/04/17 04/14/19 History losartan 50 mg tablet 50 mg PO QDAY 04/04/17 04/14/19 History magnesium oxide 420 mg tablet 420 mg PO BID 04/04/17 04/14/19 History multivitamin capsule 1 tab-cap PO QDAY 04/04/17 04/14/19 History pantoprazole 40 mg tablet,delayed 40 mg PO QAM 04/04/17 04/14/19 History release pravastatin 40 mg tablet 40 mg PO QDAY tab 04/04/17 04/14/19 History pravastatin 80 mg tablet 80 mg PO QDAY tab 04/04/17 04/14/19 History thiamine HCl (vitamin B1) 100 mg 100 mg PO QDAY 04/04/17 04/14/19 History tablet vitamin B complex capsule 1 cap PO QDAY 04/04/17 04/14/19 History amlodipine 10 mg tablet 10 mg PO QDAY 12/31/18 04/14/19 History bisoprolol fumarate 5 mg tablet 5 mg PO QDAY 12/31/18 04/14/19 History calcium carbonate-vitamin D3 600 1 cap PO QDAY cap 12/31/18 04/14/19 History mg calcium-200 unit capsule cyanocobalamin (vit B-12) 500 mcg 500 mcg PO QDAY 12/31/18 04/14/19 History tablet doxycycline monohydrate 100 mg 100 mg PO BID 12/31/18 04/14/19 History capsule fluconazole 100 mg tablet 200 mg PO QDAY 12/31/18 04/14/19 History food supplement, lactose-reduced each PO TID ml 12/31/18 04/14/19 History oral liquid loperamide 2 mg capsule 2 mg PO Q2-4H PRN 12/31/18 04/14/19 History melatonin 3 mg tablet 6 mg PO HS PRN tab 12/31/18 04/14/19 History omeprazole 20 mg capsule,delayed 20 mg PO BID cap 12/31/18 04/14/19 History release prednisone 10 mg tablet 10 mg PO QDAY 12/31/18 04/14/19 History pyridoxine (vitamin B6) 50 mg 100 mg PO QDAY cap 12/31/18 04/14/19 History capsule sildenafil 100 mg tablet 100 mg PO ONCE 12/31/18 04/14/19 History tamsulosin 0.4 mg capsule 0.4 mg PO QDAY 12/31/18 04/14/19 History tiotropium bromide 18 mcg capsule 1 cap INHALATION QDAY 12/31/18 04/14/19 History with inhalation device minocycline 100 mg capsule 100 mg PO BID 01/01/19 04/14/19 History Allergies Allergy/AdvReac Type Severity Reaction Status Date / Time lisinopril Allergy Severe Anaphylaxis Verified 04/15/19 14:46 Varenicline AdvReac Mild Vomiting Verified 04/15/19 14:46 Exam - Vital Signs Vital signs: Temp Pulse Resp BP Pulse Ox 98.3 F 88 35 H 117/72 95 04/16/19 12:01 04/16/19 14:33 04/16/19 13:17 04/16/19 14:01 04/16/19 14:33 - General Appearance General appearance: cachectic, moderate distress, chronically ill, frail EENT: ATNC, PERRL, mucous membranes dry Neck: no JVD, no thyromegaly, no carotid bruit, supple Respiratory: course breath sounds, rhonchi Cardiology: no murmurs, no rub, no edema, normal S1, normal S2 Gastrointestinal: normoactive bowel sounds, no masses Integumentary: no rash, warm and dry Neurologic: no focal deficit, no asterixis, CN 3-12 intact Musculoskeletal: no deformities, no erythema, no cyanosis, no clubbing Psychiatric: mood/affect appropriate Results - Lab Results 04/16/19 03:50 04/16/19 16:13 Most recent lab results Calcium 7.7 mg/dl (8.6-10.4) L 04/16/19 03:50 Phosphorus 2.9 mg/dL (2.7-4.5) 04/16/19 03:50 Magnesium 1.8 mg/dL (1.6-2.5) 04/16/19 03:50 - Image Kidney/bladder ultrasound: report reviewed (FINDINGS: Chronic atrophy of the left kidney is unchanged: 6.4 x 3 cm.) Assessment and Plan (1) Hyponatremia Review of the EMR shows that this patient is no stranger to hyponatremia. In addition, he consumes a large amout of daily EtOH. The low BUN/Cr and cachexia suggest he has inadequate protein stores to maximize he urinary diluting capacity and thus has chronic hyponatremia. If its true he drinks 12 beers a day, beer al is in the D/Dx. - In 2018 TSH was WNL - I do not see a prior cortisol level but he does notappear to have adrenal insufficiency given his lack of hypotension and his absence of hyperkalemia. Recs: 1. Oral fluid restriction 2. Swallow Rx with the most hyperosmolar entral feeding we have (usually 2 haylee HN or Nepro) to further reduce oral H2O intake 3. Round the clock Lasix to promote a water diuresis (acutually, ~0.45% saline) and replace with NS to slowly raise Na 4. Frequent Na, K, Mg levels 5. Desired Na increase 1-2 mEq per hour 6. Mix the pip/salina in NS not D5W 7. May need an echo due to elevated BNP but I suspect will not change overall prognosis Status: Chronic Priority: High Comment: No BANQUET BARTENDER Sx referrable to hyponatremia (2) Alcohol abuse with unspecified alcohol-induced disorder So far, no signs or symptoms of EtOH withdrawal I suspect this makes up the majority of his caloric intake, and his COPD and increased WOB leads to marked pulmonary cachexia RECS: 1. High protein intake 2. Alcoholic MVI and Thiamine 3. Watch for signs and sx of delirium Status: Chronic Priority: Medium
[2019-04-16 17:10] LABS: Magnesium 1.8 mg/dL (1.6-2.5); Potassium 3.4 mmol/L (3.3-5.1); Sodium 123 mmol/L (133-145)
[2019-04-16] MEDS: SENNOSIDES/DOCUSATE SODIUM 1 TAB TABLET PO SCH (22:01)
[2019-04-16] MEDS: LORazepam 2 MG/ML VIAL IV PRN (22:21)
[2019-04-16 23:08] LABS: Carbon Dioxide 25 mmol/L (22-30); Chloride 84 mmol/L (96-108); Magnesium 1.8 mg/dL (1.6-2.5); Potassium 3.4 mmol/L (3.3-5.1); Sodium 125 mmol/L (133-145)
[2019-04-17] MEDS: NACL 0.9% W/KCL 20MEQ 1,000 ML IV SCH ×4 (00:40→16:31)
[2019-04-17] MEDS: methylPREDNISolone SOD SUCC 125 MG/2 ML VIAL IV SCH ×4 (00:43→21:12)
[2019-04-17] MEDS: PIPERACILLIN SODIUM/TAZOBACTAM 3.375 GM in 0.9 % SODIUM CHLORIDE 50 ML IV SCH ×4 (00:44→18:20)
[2019-04-17] MEDS: IPRATROPIUM/ALBUTEROL 3 ML AMPUL.NEB NEB SCH ×6 (03:30→23:08)
[2019-04-17 05:16] LABS: Hematocrit 37.2 % (41.0-55.0); Hemoglobin 12.4 g/dL (13.5-16.5); Mean Cell Volume 95.4 fL (80.0-100.0); Mean Corpuscular HGB Conc 33.5 g/dL (31.0-36.0); Mean Platelet Volume 7.4 fL (7.4-10.4); Platelet Count 288 K/mcL (140-440); Red Cell Distribution Width 16.1 % (11.5-14.5); WBC 5.4 K/mcL (4.5-11.0)
[2019-04-17 05:22] LABS: ALT/SGPT 38 U/l (0-40); AST/SGOT 53 U/l (0-37); Albumin 2.8 gm/dL (3.2-5.2); Albumin/Globulin Ratio 1.1 (1.0-2.3); Alkaline Phosphatase 168 U/L (39-117); Bilirubin,Direct < 0.2 mg/dL (0.0-0.3); Bilirubin,Total 0.2 mg/dL (0.0-1.0); Blood Urea Nitrogen 7 mg/dl (8-23); Calcium 7.3 mg/dl (8.6-10.4); Carbon Dioxide 27 mmol/L (22-30); Chloride 84 mmol/L (96-108); Globulin 2.6 gm/dL (2.2-3.7); Glomerular Filtration Rate 116; Glucose 131 mg/dL (70-105); Lactate Dehydrogenase 316 U/L (94-250); Magnesium 1.8 mg/dL (1.6-2.5); Potassium 3.6 mmol/L (3.3-5.1); Sodium 126 mmol/L (133-145); Triglycerides 106 mg/dl (<150); Uric Acid 2.7 mg/dL (2.5-8.0)
[2019-04-17] MEDS: 0.9 % SODIUM CHLORIDE 10 ML SYRINGE IV SCH ×3 (05:30→21:04)
[2019-04-17 06:04] LABS: Anisocytosis 1+ (NONE SEEN); Band Neutrophils % 6 % (0-10); Lymphocytes % 6 % (15-49); Monocytes % (Manual) 8 % (1-12); Platelet Estimate NORMAL (NORMAL); RBC Morphology ABNORM (NORMAL); Segmented Neutrophils % 80 % (38-78); Target Cells FEW (NONE SEEN)
--- NOTE | 2019-04-17 07:08 | Internal Med Progress Note ---
Medical - PN: Subj Patient information: Note initiated : 04/17/19 at 7:06 am Service Date, if different from initiated Date: [] Patient: Ankit Gandhi a 63 y/o M admitted on 04/15/19 for shortness of breath O2 sat 55. Chief Complaint: [] Interval history: Mr. Gandhi is a 63 year old M paraplegic with history of advanced COPD and active smoking who presents to the ER with 3 days onset of worsening shortness of breath along with increasing yellow productive sputum, fever. Patient tried to work with the symptoms however by this morning was barely able to breathe or talk prompting him to come to the ER. He denies exposure to sick contact. Endorses to increasing shortness of breath to the point he has not been able to sleep for the last 48 hours. Has become extremely anxious labored with a feeling of impending doom. Initial work-up in the ER was consistent with acute COPD exacerbation with hypercapnia with a pH of 7.27/64 PCO2. Patient was also profoundly hyponatremic at 119 and demonstrated fluctuating mental status. 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 He is accompanied with his sister. He has paraplegic since 2-1/2 years ago and confined to bed with occasional mobility using a wheelchair. He has a friend who helps him with activities of daily living. Over time he has progressively lost weight and currently down to a BMI of 15. He denies diarrhea, headache, photophobia. He has a chronic indwelling Sanchez's catheter and sees Dr. Fernandes urologist. He denies joint pain, rash, glandular swelling. 04/16-patient critically ill with worsening shortness of breath. Unable to sleep last night. Unable to talk in full sentences. Persistent hypoxia with tachypnea and tachycardia requiring 4 L oxygen. Requesting something to sleep. Patient refusing noninvasive ventilation due to claustrophobia. Understands these risk for imminent . Continue steroids/bronchodilators. Sodium 118. Urine osmolality greater than serum osmolarity indicating component of SIADH. On antibiotic coverage for complicated UTI. GNR on urine culture 04/17-patient doing better. No overnight events. Resting comfortably after administration of Ativan. Improved urine output/tachypnea/tachycardia resolved. Systolic stable. Afebrile. Sodium improved to 126. LFTs downtrending. On protein calorie supplements per dietitian. Antibiotic coverage for UTI. GNR on culture, sensitivity awaited. Renal ultrasound left renal cyst without acute process - Constitutional Vitals: Vital Signs Temp Pulse Resp BP Pulse Ox 98.7 F 73 25 H 106/71 95 04/17/19 04:01 04/17/19 07:01 04/17/19 00:30 04/17/19 07:01 04/17/19 07:01 Period Temp Pulse Resp BP Sys/Hensley Pulse Ox Last 24 Hr 97.5 F-99.5 F 73-122 14-36 98-158/58-127 81-100 Intake and Output 04/16/19 04/17/19 04/17/19 21:59 05:59 13:59 Intake Total 1400 1050 Output Total 1000 2850 375 Balance 400 -1800 -375 Weight 104 lb 1.6 oz Intake & Output: Intake & Output 04/16/19 04/17/19 04/17/19 21:59 05:59 13:59 Intake Total 1400 1050 Output Total 1000 2850 375 Balance 400 -1800 -375 Weight 104 lb 1.6 oz Intake: IV 1000 1050 NaCl 0.9% W/KCl 20Meq 1000ML 1, 1000 1000 000 ml @ 150 mls/hr IV .Q6H40M SAL Rx#:[id number] Zosyn 3.375 gm In Sodium 50 Chloride 0.9% 50 ml @ 100 mls/ hr IV Q6H SAL Rx#:[id number] Oral 400 Output: Urine Catheter Amount 1000 2850 375 Other: Urine Appearance Cloudy Urine Color Bright Yellow General appearance: no acute distress Exam: Nonlabored breathing Sanchez draining clear urine Stable hemodynamics resting comfortably Paraplegic waist down Medical - PN: Obj Da - Labs CBC & Chem 7: 04/17/19 03:50 04/17/19 03:50 Labs: Abnormal Lab Results 04/17/19 04/17/19 04/16/19 03:50 03:50 22:00 WBC RBC 3.90 L Hgb 12.4 L Hct 37.2 L RDW 16.1 H Seg Neutrophils % 80 H Lymphocytes % 6 L RBC Morphology Abnorm A Polychromasia Anisocytosis 1+ A Target Cells Few A Ovalocytes RBC Fragments Sodium 126 L 125 L Chloride 84 L 84 L Anion Gap BUN 7 L Creatinine 0.5 L Glucose 131 H Osmolality Uric Acid Calcium 7.3 L Phosphorus 2.0 L GGT 144 H AST 53 H ALT Alkaline Phosphatase 168 H Lactate Dehydrogenase 316 H NT-Pro-B Natriuret Pep Total Protein 5.4 L Albumin 2.8 L Urine Protein Urine Ketones Urine Occult Blood Urine Urobilinogen Ur Leukocyte Esterase Urine RBC Urine WBC Urine Bacteria 04/16/19 04/16/19 04/16/19 16:13 12:08 08:26 WBC RBC Hgb Hct RDW Seg Neutrophils % Lymphocytes % RBC Morphology Polychromasia Anisocytosis Target Cells Ovalocytes RBC Fragments Sodium 123 L 123 L 118 L* Chloride Anion Gap BUN Creatinine Glucose Osmolality Uric Acid Calcium Phosphorus GGT AST ALT Alkaline Phosphatase Lactate Dehydrogenase NT-Pro-B Natriuret Pep Total Protein Albumin Urine Protein Urine Ketones Urine Occult Blood Urine Urobilinogen Ur Leukocyte Esterase Urine RBC Urine WBC Urine Bacteria 04/16/19 04/16/19 04/16/19 03:50 03:50 00:10 WBC 2.2 L RBC 4.26 L Hgb 13.4 L Hct 39.5 L RDW 14.8 H Seg Neutrophils % 79 H Lymphocytes % 14 L RBC Morphology Abnorm A Polychromasia 1+ A Anisocytosis Target Cells Ovalocytes RBC Fragments Rare A Sodium 120 L 119 L* Chloride 79 L Anion Gap 18.0 H BUN 7 L Creatinine 0.3 L Glucose Osmolality Uric Acid 2.2 L Calcium 7.7 L Phosphorus GGT 172 H AST 67 H ALT 51 H Alkaline Phosphatase 218 H Lactate Dehydrogenase NT-Pro-B Natriuret Pep Total Protein Albumin Urine Protein Urine Ketones Urine Occult Blood Urine Urobilinogen Ur Leukocyte Esterase Urine RBC Urine WBC Urine Bacteria 04/15/19 04/15/19 04/15/19 19:57 18:27 15:56 WBC RBC Hgb Hct RDW Seg Neutrophils % Lymphocytes % RBC Morphology Polychromasia Anisocytosis Target Cells Ovalocytes RBC Fragments Sodium 117 L* Chloride Anion Gap BUN Creatinine Glucose Osmolality 245 L Uric Acid Calcium Phosphorus GGT AST ALT Alkaline Phosphatase Lactate Dehydrogenase NT-Pro-B Natriuret Pep Total Protein Albumin Urine Protein 100 A Urine Ketones 5/tr A Urine Occult Blood 0.03 A Urine Urobilinogen 2.0 A Ur Leukocyte Esterase 500 A Urine RBC 10 H Urine WBC > 182 H Urine Bacteria Few A 04/15/19 04/15/19 14:53 14:52 WBC RBC 4.40 L Hgb Hct RDW 16.4 H Seg Neutrophils % 87 H Lymphocytes % 6 L RBC Morphology Abnorm A Polychromasia Anisocytosis 1+ A Target Cells Few A Ovalocytes Few A RBC Fragments Few A Sodium 119 L* Chloride 79 L Anion Gap BUN 5 L Creatinine 0.3 L Glucose 113 H Osmolality Uric Acid Calcium 8.5 L Phosphorus GGT AST 84 H ALT 58 H Alkaline Phosphatase 255 H Lactate Dehydrogenase NT-Pro-B Natriuret Pep 1079.0 H Total Protein Albumin Urine Protein Urine Ketones Urine Occult Blood Urine Urobilinogen Ur Leukocyte Esterase Urine RBC Urine WBC Urine Bacteria Meds: Medications Acetaminophen (Tylenol) 650 mg PO Q4-6HP PRN PRN Reason: PAIN/FEVER > 101 Albuterol/Ipratropium (Duoneb) 3 ml NEB Q4HRT [facility] Last Admin: 04/17/19 03:30 Dose: Not Given Documented by: Bisacodyl (Dulcolax) 10 mg [place] Q2-3DAYS PRN PRN Reason: Constipation Bismuth Subsalicylate (Pepto Bismol) 15 ml PO Q4HP PRN PRN Reason: Dyspepsia Last Admin: 04/15/19 23:25 Dose: 15 ml Documented by: Budesonide (Pulmicort) 0.5 mg NEB Q12 [facility] Last Admin: 04/16/19 18:53 Dose: Not Given Documented by: Cyanocobalamin (Vitamin B-12) 1,000 mcg PO BID [facility] Stop: 04/20/19 09:01 Last Admin: 04/16/19 22:02 Dose: Not Given Documented by: Docusate Sodium (Colace) 100 mg PO BID [facility] Last Admin: 04/16/19 22:01 Dose: Not Given Documented by: Folic Acid (Folic Acid) 1 mg PO DAILY [facility] Last Admin: 04/16/19 12:09 Dose: 1 mg Documented by: Guaifenesin/Codeine Phosphate (Robitussin Ac) 10 ml PO Q4HP PRN PRN Reason: Cough Heparin Sodium (Porcine) (Heparin) 5,000 unit SQ Q12 [facility] Last Admin: 04/16/19 22:21 Dose: 5,000 unit Documented by: Hydralazine HCl (Apresoline) 10 mg IV Q4-6HP PRN PRN Reason: Hypertension Magnesium Sulfate (Magnesium Sulfate) 2 gm in 50 mls @ 50 mls/hr IV UD PRN PRN Reason: MG = or < 1.7 Sodium Chloride (Sodium Chloride 0.9%) 1,000 mls @ 50 mls/hr IV .Q20H [facility] Stop: 04/18/19 06:26 Last Admin: 04/16/19 13:20 Dose: Not Given Documented by: Acetaminophen (Ofirmev) 1,000 mg in 100 mls @ 200 mls/hr IV Q6HP PRN PRN Reason: PAIN/FEVER > 101 Last Infusion: 04/16/19 09:20 Dose: Infused Documented by: Potassium Chloride/Sodium Chloride (Nacl 0.9% W/Kcl 20meq 1000ml) 1,000 mls @ 150 mls/hr IV .Q6H40M [facility] Stop: 04/17/19 08:44 Last Admin: 04/17/19 00:40 Dose: 150 mls/hr Documented by: Piperacillin Sod/Tazobactam (Sod 3.375 gm/ Sodium Chloride) 50 mls @ 100 mls/hr IV Q6H [facility]; Protocol Last Admin: 04/17/19 05:30 Dose: 100 mls/hr Documented by: Iron Carb/Multivit/[place]/Folic Acid (Multivitamin W/Minerals) 1 tab PO DAILY [facility] Last Admin: 04/16/19 13:06 Dose: Not Given Documented by: Lorazepam (Ativan) 0.5 mg IV Q6HP PRN PRN Reason: ANXIETY/SEDATION Last Admin: 04/16/19 22:21 Dose: 0.5 mg Documented by: Magnesium Hydroxide (Milk Of Magnesia) 30 ml PO HSP PRN PRN Reason: Constipation Melatonin (Melatonin 3mg Tablet) 3 mg PO HSP PRN PRN Reason: Insomnia Methylprednisolone Sodium Succinate (Solu-Medrol) 60 mg IV Q6 [facility] Last Admin: 04/17/19 05:30 Dose: 60 mg Documented by: Morphine Sulfate (Morphine) 1 mg IV Q4HP PRN PRN Reason: PAIN LEVEL > 6 Last Admin: 04/17/19 00:44 Dose: 1 mg Documented by: Ondansetron HCl (Zofran) 4 mg IV Q4-6HP PRN PRN Reason: Nausea And Vomiting Potassium Chloride (Klor-Con) 40 meq PO DAILYP PRN PRN Reason: K+ < 3.5 Senna/Docusate Sodium (Senna Plus Tablet) 1 tab PO HS [facility] Last Admin: 04/16/19 22:01 Dose: Not Given Documented by: Sodium Chloride (Saline Flush) 10 ml IV Q8 [facility] Last Admin: 04/17/19 05:30 Dose: Not Given Documented by: Thiamine HCl (Vitamin B1) 100 mg PO DAILY [facility] Last Admin: 04/16/19 13:06 Dose: Not Given Documented by: Trazodone HCl (Desyrel) 50 mg PO HSP PRN PRN Reason: Insomnia Medical - PN: A/P - Time Spent With Patient Total time spent is greater than 50% in coordination of care (as documented) at patient's floor/unit and/or counseling patient: 25 - 35 minutes (1) Acute hypercapnic respiratory failure Status: Acute Assessment and plan: * Acute exacerbation of COPD. Clinically improved on IV steroids/bronchodilators/supplemental oxygen and antibiotic coverage. Remains a very high risk mortality. Patient follows up outpatient with Dr. Eliseo cantu.. * Severe euvolemic hyponatremia , SIADH/alcoholism. Sodium currently 126. Continue free water restriction and gentle saline infusion. * Hardware related complicated GNR UTI -de-escalate based on cultures. Chronic indwelling Sanchez's catheter due to paraplegia and urinary retention. Renal ultrasound no evidence of obstructive uropathy but shows 14 mm left kidney lesion(complex cyst). * Acute hypercapnic respiratory failure secondary to COPD exacerbation. Clinically improving. * 14 mm left kidney lesion-will need further evaluation on discharge. PCP to coordinate * Elevated LFTs secondary to sepsis endorgan dysfunction/underlying alcoholism. 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 * Continue Free water restriction/gentle saline infusion * Protein calorie supplements/multivitamins/minerals Current Visit: Yes Medical - PN: Qual - VTE Deep Vein Thrombosis/Pulmonary Embolism Present on Admission: No
[2019-04-17] MEDS: BUDESONIDE 0.5 MG/2 ML AMPUL.NEB NEB SCH ×2 (08:14→23:09)
[2019-04-17] MEDS: HEPARIN 5,000 UNIT/ML VIAL SQ SCH ×2 (09:31→21:03)
[2019-04-17] MEDS: DOCUSATE SODIUM 100 MG CAPSULE PO SCH ×2 (11:06→21:02)
--- NOTE | 2019-04-17 11:27 | Internal Med Progress Note ---
Medical - PN: Subj Patient information: Note initiated : 04/17/19 at 11:18 am Service Date, if different from initiated Date: [] Patient: Ankit Gandhi a 63 y/o M admitted on 04/15/19 for shortness of breath O2 sat 55. Chief Complaint: [] Interval history: Mr. Gandhi is a 63 year old M paraplegic with history of advanced COPD and active smoking who presents to the ER with 3 days onset of worsening shortness of breath along with increasing yellow productive sputum, fever. Patient tried to work with the symptoms however by this morning was barely able to breathe or talk prompting him to come to the ER. He denies exposure to sick contact. Endorses to increasing shortness of breath to the point he has not been able to sleep for the last 48 hours. Has become extremely anxious labored with a feeling of impending doom. Initial work-up in the ER was consistent with acute COPD exacerbation with hypercapnia with a pH of 7.27/64 PCO2. Patient was also profoundly hyponatremic at 119 and demonstrated fluctuating mental status. 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 He is accompanied with his sister. He has paraplegic since 2-1/2 years ago and confined to bed with occasional mobility using a wheelchair. He has a friend who helps him with activities of daily living. Over time he has progressively lost weight and currently down to a BMI of 15. He denies diarrhea, headache, photophobia. He has a chronic indwelling Sanchez's catheter and sees Dr. Fernandes urologist. He denies joint pain, rash, glandular swelling. 04/16-patient critically ill with worsening shortness of breath. Unable to sleep last night. Unable to talk in full sentences. Persistent hypoxia with tachypnea and tachycardia requiring 4 L oxygen. Requesting something to sleep. Patient refusing noninvasive ventilation due to claustrophobia. Understands these risk for imminent . Continue steroids/bronchodilators. Sodium 118. Urine osmolality greater than serum osmolarity indicating component of SIADH. On antibiotic coverage for complicated UTI. GNR on urine culture 04/17-patient doing better. No overnight events. Resting comfortably after administration of Ativan. Improved urine output/tachypnea/tachycardia resolved. Systolic stable. Afebrile. Sodium improved to 126. LFTs downtrending. On protein calorie supplements per dietitian. Antibiotic coverage for UTI. GNR on culture, sensitivity awaited. Renal ultrasound left renal cyst without acute process 04/18 - Constitutional Vitals: Vital Signs Temp Pulse Resp BP Pulse Ox 97.2 F 97 H 20 137/74 90 04/17/19 10:00 04/17/19 10:00 04/17/19 11:00 04/17/19 11:00 04/17/19 10:00 Period Temp Pulse Resp BP Sys/Hensley Pulse Ox Last 24 Hr 97.2 F-99.5 F 68-107 13-36 105-158/58-127 81-100 Intake and Output 04/16/19 04/17/19 04/17/19 21:59 05:59 13:59 Intake Total 1400 1050 2050 Output Total 1000 2850 750 Balance 400 -1800 1300 Weight 47.219 kg Intake & Output: Intake & Output 04/16/19 04/17/19 04/17/19 21:59 05:59 13:59 Intake Total 1400 1050 2050 Output Total 1000 2850 750 Balance 400 -1800 1300 Weight 47.219 kg Intake: IV 1000 1050 2050 Sodium Chloride 0.9% 1,000 ml @ 1000 50 mls/hr IV .Q20H [facility] Rx#: [id number] NaCl 0.9% W/KCl 20Meq 1000ML 1, 1000 1000 1000 000 ml @ 150 mls/hr IV .Q6H40M [facility] Rx#:[id number] Zosyn 3.375 gm In Sodium 50 50 Chloride 0.9% 50 ml @ 100 mls/ hr IV Q6H [facility] Rx#:[id number] Oral 400 Output: Urine Catheter Amount 1000 2850 425 Void Amount 325 Other: Urine Appearance Clear Uretheral (Sanchez) Cloudy Urine Color Bright Yellow Uretheral (Sanchez) Bright Yellow Exam: General: Alert, Awake, No acute Distress Eyes/N/T: EOMI, Head/Neck: neck supple, CV: RRR, No murmurs, Pulm: Abd: soft, nontender, +BS x4 Ext: no clubbing/cyanosis/edema Neuro: Alert, paraplegic lower extremities previous condition Skin: warm/dry Medical - PN: Obj Da - Labs CBC & Chem 7: 04/17/19 03:50 04/17/19 03:50 Labs: Abnormal Lab Results 04/17/19 04/17/19 04/16/19 03:50 03:50 22:00 WBC RBC 3.90 L Hgb 12.4 L Hct 37.2 L RDW 16.1 H Seg Neutrophils % 80 H Lymphocytes % 6 L RBC Morphology Abnorm A Polychromasia Anisocytosis 1+ A Target Cells Few A Ovalocytes RBC Fragments Sodium 126 L 125 L Chloride 84 L 84 L Anion Gap BUN 7 L Creatinine 0.5 L Glucose 131 H Osmolality Uric Acid Calcium 7.3 L Phosphorus 2.0 L GGT 144 H AST 53 H ALT Alkaline Phosphatase 168 H Lactate Dehydrogenase 316 H NT-Pro-B Natriuret Pep Total Protein 5.4 L Albumin 2.8 L Urine Protein Urine Ketones Urine Occult Blood Urine Urobilinogen Ur Leukocyte Esterase Urine RBC Urine WBC Urine Bacteria 04/16/19 04/16/19 04/16/19 16:13 12:08 08:26 WBC RBC Hgb Hct RDW Seg Neutrophils % Lymphocytes % RBC Morphology Polychromasia Anisocytosis Target Cells Ovalocytes RBC Fragments Sodium 123 L 123 L 118 L* Chloride Anion Gap BUN Creatinine Glucose Osmolality Uric Acid Calcium Phosphorus GGT AST ALT Alkaline Phosphatase Lactate Dehydrogenase NT-Pro-B Natriuret Pep Total Protein Albumin Urine Protein Urine Ketones Urine Occult Blood Urine Urobilinogen Ur Leukocyte Esterase Urine RBC Urine WBC Urine Bacteria 04/16/19 04/16/19 04/16/19 03:50 03:50 00:10 WBC 2.2 L RBC 4.26 L Hgb 13.4 L Hct 39.5 L RDW 14.8 H Seg Neutrophils % 79 H Lymphocytes % 14 L RBC Morphology Abnorm A Polychromasia 1+ A Anisocytosis Target Cells Ovalocytes RBC Fragments Rare A Sodium 120 L 119 L* Chloride 79 L Anion Gap 18.0 H BUN 7 L Creatinine 0.3 L Glucose Osmolality Uric Acid 2.2 L Calcium 7.7 L Phosphorus GGT 172 H AST 67 H ALT 51 H Alkaline Phosphatase 218 H Lactate Dehydrogenase NT-Pro-B Natriuret Pep Total Protein Albumin Urine Protein Urine Ketones Urine Occult Blood Urine Urobilinogen Ur Leukocyte Esterase Urine RBC Urine WBC Urine Bacteria 04/15/19 04/15/19 04/15/19 19:57 18:27 15:56 WBC RBC Hgb Hct RDW Seg Neutrophils % Lymphocytes % RBC Morphology Polychromasia Anisocytosis Target Cells Ovalocytes RBC Fragments Sodium 117 L* Chloride Anion Gap BUN Creatinine Glucose Osmolality 245 L Uric Acid Calcium Phosphorus GGT AST ALT Alkaline Phosphatase Lactate Dehydrogenase NT-Pro-B Natriuret Pep Total Protein Albumin Urine Protein 100 A Urine Ketones 5/tr A Urine Occult Blood 0.03 A Urine Urobilinogen 2.0 A Ur Leukocyte Esterase 500 A Urine RBC 10 H Urine WBC > 182 H Urine Bacteria Few A 04/15/19 04/15/19 14:53 14:52 WBC RBC 4.40 L Hgb Hct RDW 16.4 H Seg Neutrophils % 87 H Lymphocytes % 6 L RBC Morphology Abnorm A Polychromasia Anisocytosis 1+ A Target Cells Few A Ovalocytes Few A RBC Fragments Few A Sodium 119 L* Chloride 79 L Anion Gap BUN 5 L Creatinine 0.3 L Glucose 113 H Osmolality Uric Acid Calcium 8.5 L Phosphorus GGT AST 84 H ALT 58 H Alkaline Phosphatase 255 H Lactate Dehydrogenase NT-Pro-B Natriuret Pep 1079.0 H Total Protein Albumin Urine Protein Urine Ketones Urine Occult Blood Urine Urobilinogen Ur Leukocyte Esterase Urine RBC Urine WBC Urine Bacteria Meds: Medications Acetaminophen (Tylenol) 650 mg PO Q4-6HP PRN PRN Reason: PAIN/FEVER > 101 Albuterol/Ipratropium (Duoneb) 3 ml NEB Q4HRT [facility] Last Admin: 04/17/19 08:14 Dose: Not Given Documented by: Bisacodyl (Dulcolax) 10 mg [place] Q2-3DAYS PRN PRN Reason: Constipation Bismuth Subsalicylate (Pepto Bismol) 15 ml PO Q4HP PRN PRN Reason: Dyspepsia Last Admin: 04/15/19 23:25 Dose: 15 ml Documented by: Budesonide (Pulmicort) 0.5 mg NEB Q12 [facility] Last Admin: 04/17/19 08:14 Dose: Not Given Documented by: Cyanocobalamin (Vitamin B-12) 1,000 mcg PO BID [facility] Stop: 04/20/19 09:01 Last Admin: 04/16/19 22:02 Dose: Not Given Documented by: Docusate Sodium (Colace) 100 mg PO BID [facility] Last Admin: 04/17/19 11:06 Dose: Not Given Documented by: Folic Acid (Folic Acid) 1 mg PO DAILY [facility] Last Admin: 04/16/19 12:09 Dose: 1 mg Documented by: Guaifenesin/Codeine Phosphate (Robitussin Ac) 10 ml PO Q4HP PRN PRN Reason: Cough Heparin Sodium (Porcine) (Heparin) 5,000 unit SQ Q12 [facility] Last Admin: 04/17/19 09:31 Dose: 5,000 unit Documented by: Hydralazine HCl (Apresoline) 10 mg IV Q4-6HP PRN PRN Reason: Hypertension Magnesium Sulfate (Magnesium Sulfate) 2 gm in 50 mls @ 50 mls/hr IV UD PRN PRN Reason: MG = or < 1.7 Acetaminophen (Ofirmev) 1,000 mg in 100 mls @ 200 mls/hr IV Q6HP PRN PRN Reason: PAIN/FEVER > 101 Last Infusion: 04/16/19 09:20 Dose: Infused Documented by: Potassium Chloride/Sodium Chloride (Nacl 0.9% W/Kcl 20meq 1000ml) 1,000 mls @ 150 mls/hr IV .Q6H40M [facility] Stop: 04/18/19 08:44 Last Admin: 04/17/19 09:14 Dose: 150 mls/hr Documented by: Piperacillin Sod/Tazobactam (Sod 3.375 gm/ Sodium Chloride) 50 mls @ 100 mls/hr IV Q6H [facility]; Protocol Last Infusion: 04/17/19 06:00 Dose: Infused Documented by: Iron Carb/Multivit/[place]/Folic Acid (Multivitamin W/Minerals) 1 tab PO DAILY [facility] Last Admin: 04/16/19 13:06 Dose: Not Given Documented by: Lorazepam (Ativan) 0.5 mg IV Q6HP PRN PRN Reason: ANXIETY/SEDATION Last Admin: 04/16/19 22:21 Dose: 0.5 mg Documented by: Magnesium Hydroxide (Milk Of Magnesia) 30 ml PO HSP PRN PRN Reason: Constipation Melatonin (Melatonin 3mg Tablet) 3 mg PO HSP PRN PRN Reason: Insomnia Methylprednisolone Sodium Succinate (Solu-Medrol) 60 mg IV Q12 [facility] Stop: 04/17/19 21:01 Last Admin: 04/17/19 09:15 Dose: Not Given Documented by: Morphine Sulfate (Morphine) 1 mg IV Q4HP PRN PRN Reason: PAIN LEVEL > 6 Last Admin: 04/17/19 00:44 Dose: 1 mg Documented by: Ondansetron HCl (Zofran) 4 mg IV Q4-6HP PRN PRN Reason: Nausea And Vomiting Potassium Chloride (Klor-Con) 40 meq PO DAILYP PRN PRN Reason: K+ < 3.5 Prednisone (Prednisone) 40 mg PO [facility] Senna/Docusate Sodium (Senna Plus Tablet) 1 tab PO HS [facility] Last Admin: 04/16/19 22:01 Dose: Not Given Documented by: Sodium Chloride (Saline Flush) 10 ml IV Q8 [facility] Last Admin: 04/17/19 05:30 Dose: Not Given Documented by: Thiamine HCl (Vitamin B1) 100 mg PO DAILY [facility] Last Admin: 04/16/19 13:06 Dose: Not Given Documented by: Trazodone HCl (Desyrel) 50 mg PO HSP PRN PRN Reason: Insomnia Medical - PN: A/P - Time Spent With Patient Total time spent is greater than 50% in coordination of care (as documented) at patient's floor/unit and/or counseling patient: - Narrative A/P Narrative: A: *Acute hypercapnic respiratory failure secondary to COPD exacerbation. Clinically improving. *AECOPD: Clinically improved -Remains a very high risk mortality. *Hyponatremia, Euvolemic, severe acute on chronic: SIADH/alcoholism: -Sodium currently 126. *Hardware related complicated Klebsiella UTI / Chronic Urinary Retention from spinal cord injury: -Chronic indwelling Sanchez's catheter due to paraplegia and urinary retention -Renal ultrasound no evidence of obstructive uropathy but shows 14 mm left kidney lesion(complex cyst). *14 mm left kidney lesion-will need further evaluation on discharge. PCP to coordinate *Elevated LFTs: 2/2 sepsis/end-organ dysfunction/underlying alcoholism. *Severe protein calorie malnutrition: BMI 15 *CAD: continue Plavix/BB/statin *HTN: losartan/amlodipine/bisoprolol *BPH: on tamsulosin *Paraplegia: continue frequent turning/specialty bed to prevent decubitus *GERD on PPI Plan: -IV steroids/bronchodilators/supplemental oxygen and antibiotic coverage -Continue antibiotic coverage and de-escalate based on urine culture sensitivities -Improved short-term prognosis based on clinical improvement in the last 48 hours. -Continue Free water restriction/gentle saline infusion -Protein calorie supplements/multivitamins/minerals -pt/ot -Patient follows up outpatient with Dr. Colindres. -Follow-up with urology outpatient for kidney stone -ppx: Heparin DNR Medical - PN: Qual - VTE Deep Vein Thrombosis/Pulmonary Embolism Present on Admission: No
[2019-04-17] MEDS: MULTIVIT,THER IRON,CA,FA & MIN 1 TABLET PO SCH (12:10)
[2019-04-17] MEDS: THIAMINE 100 MG TABLET PO SCH (12:10)
[2019-04-17] MEDS: CYANOCOBALAMIN (VITAMIN B-12) 500 MCG TABLET PO SCH ×2 (12:10→21:03)
[2019-04-17] MEDS: FOLIC ACID 1 MG TABLET PO SCH (12:11)
--- NOTE | 2019-04-17 13:31 | Nephrology Progress Note ---
Subjective Patient information: Note initiated : 04/17/19 at 1:29 pm Service Date, if different from initiated Date: [] Patient: Ankit Gandhi 63 y/o M admitted on 04/15/19 for shortness of breath O2 sat 55. Chief Complaint: [] Principal diagnosis: Hyponatremia Interval history: Remains lethargic Urine with 2 species of Klebsiella, both TMP/SMX sensitive - currently on PIP/RICARDO Pertinent ROS: Reviewed Additional PMFSH (Level 3 Only): Nothing new Objective - Vital Signs Vital signs: Vital Signs Temp Pulse Resp BP BP Pulse Ox 04/17/19 12:00 97.8 F 15 116/78 93 04/17/19 11:29 97 H 22 04/17/19 11:00 20 137/74 04/17/19 10:00 97.2 F 97 H 149/80 90 04/17/19 09:01 68 123/70 97 04/17/19 08:18 96 04/17/19 08:15 69 13 04/17/19 08:00 74 105/69 95 04/17/19 07:01 73 106/71 95 04/17/19 06:02 77 96 04/17/19 06:01 77 129/87 97 04/17/19 05:03 77 97 04/17/19 05:01 77 109/66 97 04/17/19 04:18 77 96 04/17/19 04:01 98.7 F 77 115/75 97 04/17/19 03:28 83 96 04/17/19 03:01 95 H 139/127 99 04/17/19 02:01 147/99 04/17/19 02:00 96 04/17/19 01:56 98.4 F 107 H 99 04/17/19 00:30 25 H 04/17/19 00:02 129/77 04/16/19 23:59 128/83 04/16/19 23:50 97.5 F 16 128/83 96 04/16/19 23:27 107 H 22 04/16/19 23:22 98.6 F 105 H 20 137/95 90 04/16/19 23:09 104 H 137/95 93 04/16/19 23:01 158/110 04/16/19 22:03 36 H 04/16/19 22:00 23 H 149/77 04/16/19 21:12 98.8 F 97 H 30 H 150/84 81 L 04/16/19 21:01 23 H 150/84 04/16/19 20:00 98.8 F 81 26 H 122/58 122/58 94 04/16/19 19:13 99.5 F H 88 27 H 139/78 92 04/16/19 19:00 97 H 35 H 150/97 93 04/16/19 18:54 22 91 04/16/19 18:52 96 H 21 95 04/16/19 18:23 94 H 23 H 139/78 97 04/16/19 17:00 88 20 127/83 98 04/16/19 16:00 102 H 21 154/89 90 04/16/19 15:00 90 125/69 95 04/16/19 14:33 88 95 04/16/19 14:01 88 117/72 95 Intake and Output 04/16/19 04/17/19 04/17/19 21:59 05:59 13:59 Intake Total 1400 1050 2050 Output Total 1000 2850 750 Balance 400 -1800 1300 Intake: IV 1000 1050 2050 Sodium Chloride 0.9% 1,000 ml @ 1000 50 mls/hr IV .Q20H [facility] Rx#: [id number] NaCl 0.9% W/KCl 20Meq 1000ML 1, 1000 1000 1000 000 ml @ 150 mls/hr IV .Q6H40M [facility] Rx#:[id number] Zosyn 3.375 gm In Sodium 50 50 Chloride 0.9% 50 ml @ 100 mls/ hr IV Q6H [facility] Rx#:[id number] Oral 400 Output: Urine Catheter Amount 1000 2850 425 Void Amount 325 Other: Urine Appearance Clear Uretheral (Sanchez) Cloudy Urine Color Bright Yellow Uretheral (Sanchez) Bright Yellow Weight 104 lb 1.6 oz Intake & Output: Intake & Output 04/16/19 04/17/19 04/17/19 21:59 05:59 13:59 Intake Total 1400 1050 2050 Output Total 1000 2850 750 Balance 400 -1800 1300 Weight 104 lb 1.6 oz Intake: IV 1000 1050 2050 Sodium Chloride 0.9% 1,000 ml @ 1000 50 mls/hr IV .Q20H [facility] Rx#: [id number] NaCl 0.9% W/KCl 20Meq 1000ML 1, 1000 1000 1000 000 ml @ 150 mls/hr IV .Q6H40M [facility] Rx#:[id number] Zosyn 3.375 gm In Sodium 50 50 Chloride 0.9% 50 ml @ 100 mls/ hr IV Q6H [facility] Rx#:[id number] Oral 400 Output: Urine Catheter Amount 1000 2850 425 Void Amount 325 Other: Urine Appearance Clear Uretheral (Sanchez) Cloudy Urine Color Bright Yellow Uretheral (Sanchez) Bright Yellow - General Appearance General appearance: cachectic, chronically ill, fatigue, frail EENT: ATNC, PERRL, mucous membranes moist Neck: no JVD, no thyromegaly, no carotid bruit Respiratory: wheezing, course breath sounds, rhonchi Cardiology: no murmurs, no rub, no gallops, no edema Gastrointestinal: normoactive bowel sounds, no guarding Integumentary: no rash Neurologic: no focal deficit, no asterixis, alert and oriented x3, CN 3-12 intact Musculoskeletal: no cyanosis, no clubbing Psychiatric: mood/affect appropriate - Lab 04/17/19 03:50 04/17/19 03:50 Most recent lab results Calcium 7.3 mg/dl (8.6-10.4) L 04/17/19 03:50 Phosphorus 2.0 mg/dL (2.7-4.5) L 04/17/19 03:50 Magnesium 1.8 mg/dL (1.6-2.5) 04/17/19 03:50 - Imaging Kidney/bladder ultrasound: report reviewed Assessment and Plan (1) Hyponatremia 1. Continue NS with KCl and Q 8 hour furosemide 2. Nutrition, nutrition, nutrition 3. Oral fluid restriction 4. Swallow all meds with nutritional supplement not water. The nutritional supplement does NOT COUNT in the daily fluid restriction. Status: Chronic Priority: High Comment: No DENTAL HYGIENIST Sx referrable to hyponatremia (2) Alcohol abuse with unspecified alcohol-induced disorder 1. No signs of impending DT's 2. Wants a beer 3. Azazingly, if its true he drinks a 12 pack a day, thats > 12% of body weight in beer a day!!! 4. Therefore, he needs "salt loading" due to his drinking habit 5. Once he hits Na 130, can be switched to just po fluid restriction +/- salt tables, but I suspecion he will not continue to do things to help hiself after discharge. Status: Chronic Priority: Medium (3) Hyponatremia with normal extracellular fluid volume 1. As above. 2. Free H2O excess with Na deficiency (beer > 144 oz/day)) is present and well tolerated as he probably has a "reset osmostat" Status: Acute (4) Alteration in electrolyte and fluid balance 1. Replacing K and PO4 as needed. 2. Watch Mg and Ca as well Status: Acute (5) UTI due to Klebsiella species 1. Present on admission 2. On pip/ricardo 3. Sanchez out soon and switch to TMP/SMX Status: Acute
[2019-04-17] MEDS ORDERED: SODIUM PHOSPHATE 15 MMOL in DEXTROSE 5% IN WATER 250 ML IV ONE (13:45)
[2019-04-17] MEDS: FUROSEMIDE 40 MG/4 ML VIAL IV SCH ×2 (13:58→22:27)
[2019-04-17 15:33] LABS: Albumin 3.1 gm/dL (3.2-5.2); Blood Urea Nitrogen 6 mg/dl (8-23); Calcium 7.4 mg/dl (8.6-10.4); Carbon Dioxide 26 mmol/L (22-30); Chloride 90 mmol/L (96-108); Glomerular Filtration Rate 127; Glucose 182 mg/dL (70-105); Phosphorous 1.2 mg/dL (2.7-4.5); Potassium 3.6 mmol/L (3.3-5.1); Sodium 131 mmol/L (133-145)
[2019-04-17] MEDS ORDERED: NEUTRA PHOS 1 PACKET PO ONE (16:58)
[2019-04-17] MEDS ORDERED: NEUTRA PHOS 1 PACKET PO SCH (21:00)
[2019-04-17] MEDS: SENNOSIDES/DOCUSATE SODIUM 1 TAB TABLET PO SCH (21:02)
[2019-04-17] MEDS: LORazepam 2 MG/ML VIAL IV PRN (22:43)
[2019-04-17 23:25] LABS: Blood Urea Nitrogen 5 mg/dl (8-23); Calcium 7.2 mg/dl (8.6-10.4); Carbon Dioxide 34 mmol/L (22-30); Chloride 84 mmol/L (96-108); Glomerular Filtration Rate 127; Glucose 166 mg/dL (70-105); Magnesium 1.7 mg/dL (1.6-2.5); Phosphorous 1.3 mg/dL (2.7-4.5); Potassium 2.9 mmol/L (3.3-5.1); Sodium 129 mmol/L (133-145)
[2019-04-18] MEDS: NACL 0.9% W/KCL 20MEQ 1,000 ML IV SCH ×2 (00:09→09:12)
[2019-04-18] MEDS: PIPERACILLIN SODIUM/TAZOBACTAM 3.375 GM in 0.9 % SODIUM CHLORIDE 50 ML IV SCH ×2 (00:09→05:39)
[2019-04-18] MEDS ORDERED: POTASSIUM PHOSPHATE 20 MEQ in DEXTROSE 5% IN WATER 250 ML IV ONE (00:30)
[2019-04-18] MEDS: IPRATROPIUM/ALBUTEROL 3 ML AMPUL.NEB NEB SCH ×4 (03:07→20:09)
[2019-04-18] MEDS ORDERED: POTASSIUM PHOSPHATE 66 MEQ/15 ML VIAL IV ONE (03:28)
[2019-04-18] MEDS: 0.9 % SODIUM CHLORIDE 10 ML SYRINGE IV SCH ×3 (05:39→22:32)
[2019-04-18] MEDS: FUROSEMIDE 40 MG/4 ML VIAL IV SCH (07:11)
[2019-04-18 07:14] LABS: ALT/SGPT 63 U/l (0-40); AST/SGOT 73 U/l (0-37); Albumin 3.3 gm/dL (3.2-5.2); Albumin/Globulin Ratio 1.1 (1.0-2.3); Alkaline Phosphatase 171 U/L (39-117); Bilirubin,Direct < 0.2 mg/dL (0.0-0.3); Bilirubin,Total 0.3 mg/dL (0.0-1.0); Blood Urea Nitrogen 5 mg/dl (8-23); Carbon Dioxide 38 mmol/L (22-30); Chloride 84 mmol/L (96-108); Globulin 2.9 gm/dL (2.2-3.7); Glomerular Filtration Rate 127; Glucose 143 mg/dL (70-105); Lactate Dehydrogenase 271 U/L (94-250); Magnesium 1.7 mg/dL (1.6-2.5); Phosphorous 1.3 mg/dL (2.7-4.5); Potassium 2.7 mmol/L (3.3-5.1); Sodium 136 mmol/L (133-145); Triglycerides 141 mg/dl (<150); Uric Acid 1.7 mg/dL (2.5-8.0)
[2019-04-18] MEDS: BUDESONIDE 0.5 MG/2 ML AMPUL.NEB NEB SCH ×2 (07:49→20:09)
[2019-04-18 07:53] LABS: ALT/SGPT 58 U/l (0-40); AST/SGOT 64 U/l (0-37); Albumin 3.2 gm/dL (3.2-5.2); Albumin/Globulin Ratio 1.3 (1.0-2.3); Alkaline Phosphatase 154 U/L (39-117); Bilirubin,Total 0.3 mg/dL (0.0-1.0); Blood Urea Nitrogen 4 mg/dl (8-23); Calcium 6.4 mg/dl (8.6-10.4); Carbon Dioxide 39 mmol/L (22-30); Chloride 84 mmol/L (96-108); Globulin 2.5 gm/dL (2.2-3.7); Glomerular Filtration Rate 127; Glucose 207 mg/dL (70-105); Potassium 2.6 mmol/L (3.3-5.1); Sodium 134 mmol/L (133-145)
[2019-04-18] MEDS ORDERED: CALCIUM GLUCONATE 4.65 MEQ/10 ML VIAL IV ONE (07:57)
[2019-04-18] MEDS ORDERED: MAGNESIUM SULFATE 2 GM/50 ML BAG IV ONE (07:59)
[2019-04-18] MEDS ORDERED: POTASSIUM CHLORIDE 40 MEQ in DEXTROSE 5% IN WATER 500 ML IV ONE (08:00)
[2019-04-18] MEDS ORDERED: predniSONE 20 MG TABLET PO SCH (08:00)
--- NOTE | 2019-04-18 08:02 | Internal Med Progress Note ---
Medical - PN: Subj Patient information: Note initiated : 04/18/19 at 7:52 am Service Date, if different from initiated Date: [] Patient: Ankit Gandhi a 63 y/o M admitted on 04/15/19 for shortness of breath O2 sat 55. Chief Complaint: [] Interval history: Mr. Gandhi is a 63 year old M paraplegic with history of advanced COPD and active smoking who presents to the ER with 3 days onset of worsening shortness of breath along with increasing yellow productive sputum, fever. Patient tried to work with the symptoms however by this morning was barely able to breathe or talk prompting him to come to the ER. He denies exposure to sick contact. Endorses to increasing shortness of breath to the point he has not been able to sleep for the last 48 hours. Has become extremely anxious labored with a feeling of impending doom. Initial work-up in the ER was consistent with acute COPD exacerbation with hypercapnia with a pH of 7.27/64 PCO2. Patient was also profoundly hyponatremic at 119 and demonstrated fluctuating mental status. Extensive pyuria was noted on urine test(long-standing Leon's catheter for history of urine retention secondary to spinal cord injury). He is accompanied with his sister. He has paraplegic since 2-1/2 years ago and confined to bed with occasional mobility using a wheelchair. He has a friend who helps him with activities of daily living. Over time he has progressively lost weight and currently down to a BMI of 15. He denies diarrhea, headache, photophobia. He has a chronic indwelling Leon's catheter and sees Dr. Fernandes urologist. He denies joint pain, rash, glandular swelling. 04/16-patient critically ill with worsening shortness of breath. Unable to sleep last night. Unable to talk in full sentences. Persistent hypoxia with tachypnea and tachycardia requiring 4 L oxygen. Requesting something to sleep. Patient refusing noninvasive ventilation due to claustrophobia. Understands these risk for imminent . Continue steroids/bronchodilators. Sodium 118. Urine osmolality greater than serum osmolarity indicating component of SIADH. On antibiotic coverage for complicated UTI. GNR on urine culture 04/17-patient doing better. No overnight events. Resting comfortably after administration of Ativan. Improved urine output/tachypnea/tachycardia resolved. Systolic stable. Afebrile. Sodium improved to 126. LFTs downtrending. On protein calorie supplements per dietitian. Antibiotic coverage for UTI. GNR on culture, sensitivity awaited. Renal ultrasound left renal cyst without acute process 04/18 No overnight events. Wants to go home. Wants to smoke cigarettes. Denies shortness of breath out of his normal level. His current drop is his normal chronic cough. Review of Systems: Occasional headache. Denies fever/chills/nausea/vomiting/chest or abdominal pain/diarrhea. Otherwise see above. - Constitutional Vitals: Vital Signs Temp Pulse Resp BP Pulse Ox 99.0 F 109 H 18 172/100 96 04/18/19 04:00 04/18/19 07:49 04/18/19 07:49 04/18/19 07:00 04/18/19 07:49 Period Temp Pulse Resp BP Sys/Hensley Pulse Ox Last 24 Hr 97.2 F-99.0 F 68-120 13-30 105-172/69-100 83-100 Intake and Output 04/17/19 04/18/19 04/18/19 21:59 05:59 13:59 Intake Total 1984 5664 133.8553 Output Total 1750 2550 450 Balance 235 -1500 94.5455 Weight 46.72 kg Intake & Output: Intake & Output 04/17/19 04/18/19 04/18/19 21:59 05:59 13:59 Intake Total 1984 1194 420.2426 Output Total 1750 2550 450 Balance 235 -1500 94.5455 Weight 46.72 kg Intake: IV 1305 8839 483.2223 NaCl 0.9% W/KCl 20Meq 1000ML 1, 1000 1000 000 ml @ 150 mls/hr IV .Q6H40M [facility] Rx#:[id number] Zosyn 3.375 gm In Sodium 50 50 50 Chloride 0.9% 50 ml @ 100 mls/ hr IV Q6H [facility] Rx#:[id number] Potassium Phosphate 20 Meq In 254.5455 Dextrose 5% in Water 250 ml @ 127.273 mls/hr IV ONCE ONE Rx#: [id number] Oral 680 240 Output: Urine Catheter Amount 1750 2550 450 Other: Meal Lunch Percent of Meal Consumed 50% Urine Color Uretheral (Leon) Light Radha Light Radha Stool Size Moderate Stool Color Brown Stool Consistency Liquid # of times incontinent of 1 Bowels Exam: General: Alert, Awake, No acute Distress, cachectic Eyes/N/T: EOMI, Head/Neck: neck supple, CV: RRR, No murmurs, Pulm: Diminished bilaterally, no wheezing Abd: soft, nontender, +BS x4 Ext: no clubbing/cyanosis/edema Neuro: Alert, paraplegic lower extremities previous condition Skin: warm/dry Medical - PN: Obj Da - Labs CBC & Chem 7: 04/17/19 03:50 04/18/19 06:36 Labs: Abnormal Lab Results 04/18/19 04/17/19 04/17/19 04:00 22:07 14:06 WBC RBC Hgb Hct RDW Seg Neutrophils % Lymphocytes % RBC Morphology Polychromasia Anisocytosis Target Cells Ovalocytes RBC Fragments Sodium 129 L 131 L Potassium 2.7 L* 2.9 L* Chloride 84 L 84 L 90 L Carbon Dioxide 38 H 34 H Anion Gap BUN 5 L 5 L 6 L Creatinine 0.4 L 0.4 L 0.4 L Glucose 143 H 166 H 182 H Osmolality Uric Acid 1.7 L Calcium 7.0 L 7.2 L 7.4 L Phosphorus 1.3 L 1.3 L 1.2 L GGT 175 H AST 73 H ALT 63 H Alkaline Phosphatase 171 H Lactate Dehydrogenase 271 H NT-Pro-B Natriuret Pep Total Protein Albumin 3.0 L 3.1 L Urine Protein Urine Ketones Urine Occult Blood Urine Urobilinogen Ur Leukocyte Esterase Urine RBC Urine WBC Urine Bacteria 04/17/19 04/17/19 04/16/19 03:50 03:50 22:00 WBC RBC 3.90 L Hgb 12.4 L Hct 37.2 L RDW 16.1 H Seg Neutrophils % 80 H Lymphocytes % 6 L RBC Morphology Abnorm A Polychromasia Anisocytosis 1+ A Target Cells Few A Ovalocytes RBC Fragments Sodium 126 L 125 L Potassium Chloride 84 L 84 L Carbon Dioxide Anion Gap BUN 7 L Creatinine 0.5 L Glucose 131 H Osmolality Uric Acid Calcium 7.3 L Phosphorus 2.0 L GGT 144 H AST 53 H ALT Alkaline Phosphatase 168 H Lactate Dehydrogenase 316 H NT-Pro-B Natriuret Pep Total Protein 5.4 L Albumin 2.8 L Urine Protein Urine Ketones Urine Occult Blood Urine Urobilinogen Ur Leukocyte Esterase Urine RBC Urine WBC Urine Bacteria 04/16/19 04/16/19 04/16/19 16:13 12:08 08:26 WBC RBC Hgb Hct RDW Seg Neutrophils % Lymphocytes % RBC Morphology Polychromasia Anisocytosis Target Cells Ovalocytes RBC Fragments Sodium 123 L 123 L 118 L* Potassium Chloride Carbon Dioxide Anion Gap BUN Creatinine Glucose Osmolality Uric Acid Calcium Phosphorus GGT AST ALT Alkaline Phosphatase Lactate Dehydrogenase NT-Pro-B Natriuret Pep Total Protein Albumin Urine Protein Urine Ketones Urine Occult Blood Urine Urobilinogen Ur Leukocyte Esterase Urine RBC Urine WBC Urine Bacteria 04/16/19 04/16/19 04/16/19 03:50 03:50 00:10 WBC 2.2 L RBC 4.26 L Hgb 13.4 L Hct 39.5 L RDW 14.8 H Seg Neutrophils % 79 H Lymphocytes % 14 L RBC Morphology Abnorm A Polychromasia 1+ A Anisocytosis Target Cells Ovalocytes RBC Fragments Rare A Sodium 120 L 119 L* Potassium Chloride 79 L Carbon Dioxide Anion Gap 18.0 H BUN 7 L Creatinine 0.3 L Glucose Osmolality Uric Acid 2.2 L Calcium 7.7 L Phosphorus GGT 172 H AST 67 H ALT 51 H Alkaline Phosphatase 218 H Lactate Dehydrogenase NT-Pro-B Natriuret Pep Total Protein Albumin Urine Protein Urine Ketones Urine Occult Blood Urine Urobilinogen Ur Leukocyte Esterase Urine RBC Urine WBC Urine Bacteria 04/15/19 04/15/19 04/15/19 19:57 18:27 15:56 WBC RBC Hgb Hct RDW Seg Neutrophils % Lymphocytes % RBC Morphology Polychromasia Anisocytosis Target Cells Ovalocytes RBC Fragments Sodium 117 L* Potassium Chloride Carbon Dioxide Anion Gap BUN Creatinine Glucose Osmolality 245 L Uric Acid Calcium Phosphorus GGT AST ALT Alkaline Phosphatase Lactate Dehydrogenase NT-Pro-B Natriuret Pep Total Protein Albumin Urine Protein 100 A Urine Ketones 5/tr A Urine Occult Blood 0.03 A Urine Urobilinogen 2.0 A Ur Leukocyte Esterase 500 A Urine RBC 10 H Urine WBC > 182 H Urine Bacteria Few A 04/15/19 04/15/19 14:53 14:52 WBC RBC 4.40 L Hgb Hct RDW 16.4 H Seg Neutrophils % 87 H Lymphocytes % 6 L RBC Morphology Abnorm A Polychromasia Anisocytosis 1+ A Target Cells Few A Ovalocytes Few A RBC Fragments Few A Sodium 119 L* Potassium Chloride 79 L Carbon Dioxide Anion Gap BUN 5 L Creatinine 0.3 L Glucose 113 H Osmolality Uric Acid Calcium 8.5 L Phosphorus GGT AST 84 H ALT 58 H Alkaline Phosphatase 255 H Lactate Dehydrogenase NT-Pro-B Natriuret Pep 1079.0 H Total Protein Albumin Urine Protein Urine Ketones Urine Occult Blood Urine Urobilinogen Ur Leukocyte Esterase Urine RBC Urine WBC Urine Bacteria Meds: Medications Acetaminophen (Tylenol) 650 mg PO Q4-6HP PRN PRN Reason: PAIN/FEVER > 101 Albuterol/Ipratropium (Duoneb) 3 ml NEB Q4HRT [facility] Last Admin: 04/18/19 07:49 Dose: 3 ml Documented by: Bisacodyl (Dulcolax) 10 mg AK Q2-3DAYS PRN PRN Reason: Constipation Bismuth Subsalicylate (Pepto Bismol) 15 ml PO Q4HP PRN PRN Reason: Dyspepsia Last Admin: 04/15/19 23:25 Dose: 15 ml Documented by: Budesonide (Pulmicort) 0.5 mg NEB Q12 [facility] Last Admin: 04/18/19 07:49 Dose: 0.5 mg Documented by: Cyanocobalamin (Vitamin B-12) 1,000 mcg PO BID [facility] Stop: 04/20/19 09:01 Last Admin: 04/17/19 21:03 Dose: 1,000 mcg Documented by: Docusate Sodium (Colace) 100 mg PO BID [facility] Last Admin: 04/17/19 21:02 Dose: 100 mg Documented by: Folic Acid (Folic Acid) 1 mg PO DAILY [facility] Last Admin: 04/17/19 12:11 Dose: 1 mg Documented by: Guaifenesin/Codeine Phosphate (Robitussin Ac) 10 ml PO Q4HP PRN PRN Reason: Cough Heparin Sodium (Porcine) (Heparin) 5,000 unit SQ Q12 [facility] Last Admin: 04/17/19 21:03 Dose: 5,000 unit Documented by: Hydralazine HCl (Apresoline) 10 mg IV Q4-6HP PRN PRN Reason: Hypertension Magnesium Sulfate (Magnesium Sulfate) 2 gm in 50 mls @ 50 mls/hr IV UD PRN PRN Reason: MG = or < 1.7 Acetaminophen (Ofirmev) 1,000 mg in 100 mls @ 200 mls/hr IV Q6HP PRN PRN Reason: PAIN/FEVER > 101 Last Infusion: 04/16/19 09:20 Dose: Infused Documented by: Potassium Chloride/Sodium Chloride (Nacl 0.9% W/Kcl 20meq 1000ml) 1,000 mls @ 150 mls/hr IV .Q6H40M [facility] Stop: 04/18/19 08:44 Last Admin: 04/18/19 00:09 Dose: 150 mls/hr Documented by: Piperacillin Sod/Tazobactam (Sod 3.375 gm/ Sodium Chloride) 50 mls @ 100 mls/hr IV Q6H [facility]; Protocol Last Infusion: 04/18/19 06:45 Dose: Infused Documented by: Potassium Chloride 40 meq/ (Dextrose) 520 mls @ 130 mls/hr IV ONCE ONE Stop: 04/18/19 11:59 Iron Carb/Multivit/Rapides/Folic Acid (Multivitamin W/Minerals) 1 tab PO DAILY [facility] Last Admin: 04/17/19 12:10 Dose: 1 tab Documented by: Lorazepam (Ativan) 0.5 mg IV Q6HP PRN PRN Reason: ANXIETY/SEDATION Last Admin: 04/17/19 22:43 Dose: 0.5 mg Documented by: Magnesium Hydroxide (Milk Of Magnesia) 30 ml PO HSP PRN PRN Reason: Constipation Melatonin (Melatonin 3mg Tablet) 3 mg PO HSP PRN PRN Reason: Insomnia Morphine Sulfate (Morphine) 1 mg IV Q4HP PRN PRN Reason: PAIN LEVEL > 6 Last Admin: 04/18/19 02:17 Dose: 1 mg Documented by: Ondansetron HCl (Zofran) 4 mg IV Q4-6HP PRN PRN Reason: Nausea And Vomiting Potassium Chloride (Klor-Con) 40 meq PO DAILYP PRN PRN Reason: K+ < 3.5 Last Admin: 04/18/19 06:48 Dose: 40 meq Documented by: Prednisone (Prednisone) 40 mg PO [facility] Senna/Docusate Sodium (Senna Plus Tablet) 1 tab PO [facility] Last Admin: 04/17/19 21:02 Dose: 1 tab Documented by: Sodium Chloride (Saline Flush) 10 ml IV Q8 [facility] Last Admin: 04/18/19 05:39 Dose: Not Given Documented by: Thiamine HCl (Vitamin B1) 100 mg PO DAILY [facility] Last Admin: 04/17/19 12:10 Dose: 100 mg Documented by: Trazodone HCl (Desyrel) 50 mg PO HSP PRN PRN Reason: Insomnia Medical - PN: A/P - Time Spent With Patient Total time spent is greater than 50% in coordination of care (as documented) at patient's floor/unit and/or counseling patient: - Narrative A/P Narrative: A: *Acute hypoxic/hypercapnic respiratory failure 2/2 AECOPD: Clinically improving. -4L NC which is normal for him *AECOPD (3-5L@home): Clinically improved -Remains a very high risk mortality. *Hyponatremia, Euvolemic, severe acute on chronic: SIADH/alcoholism: Resolved *Hypokalemia/Mag: *Complicated Klebsiella UTI with indwelling chronic leon for Urinary Retention from spinal cord injury: -Renal ultrasound no evidence of obstructive uropathy but shows 14 mm left kidney lesion(complex cyst). *14 mm left kidney lesion-will need further evaluation on discharge. PCP to coordinate *Elevated LFTs: 2/2 sepsis/end-organ dysfunction/underlying alcoholism. *Severe protein calorie malnutrition: BMI 15 *CAD: continue Plavix/BB/statin *HTN: losartan/amlodipine/bisoprolol *BPH: on tamsulosin *Paraplegia: continue frequent turning/specialty bed to prevent decubitus *GERD on PPI Plan: -steroids/bronchodilators/supplemental oxygen -zosyn to PO levaquin -Improved short-term prognosis based on clinical improvement in the last 48 hours. -Continue Free water restriction/gentle saline infusion -prn electrolyte replacement -Protein calorie supplements/multivitamins/minerals -pt/ot -Patient follows up outpatient with Dr. Colindres. -Follow-up with urology outpatient for kidney stone -clarify home meds -ppx: Heparin DNR Medical - PN: Qual - VTE Deep Vein Thrombosis/Pulmonary Embolism Present on Admission: No
[2019-04-18] MEDS ORDERED: IPRATROPIUM/ALBUTEROL 3 ML AMPUL.NEB NEB PRN ×2 (08:15→10:23)
[2019-04-18] MEDS ORDERED: amLODIPine 10 MG TABLET PO SCH (09:00)
[2019-04-18] MEDS ORDERED: CALCIUM GLUCONATE 9.3 MEQ in DEXTROSE 5% IN WATER 50 ML IV ONE (09:00)
[2019-04-18] MEDS ORDERED: CALCIUM W/VIT D3 500 MG TABLET PO SCH (09:00)
[2019-04-18] MEDS ORDERED: BISOPROLOL 5 MG TABLET PO SCH (09:00)
[2019-04-18] MEDS ORDERED: CYANOCOBALAMIN (VITAMIN B-12) 500 MCG TABLET PO SCH (09:00)
[2019-04-18] MEDS ORDERED: ATORVASTATIN 20 MG TABLET PO SCH (09:00)
[2019-04-18] MEDS ORDERED: TAMSULOSIN 0.4 MG CAPSULE PO SCH (09:00)
[2019-04-18] MEDS ORDERED: CLOPIDOGREL 75 MG TABLET PO SCH (09:00)
[2019-04-18] MEDS ORDERED: PYRIDOXINE 100 MG TABLET PO SCH (09:00)
[2019-04-18] MEDS ORDERED: VITAMIN D3 1,000 UNIT TABLET PO SCH (09:00)
[2019-04-18] MEDS ORDERED: MAGNESIUM OXIDE 400 MG TABLET PO SCH (09:00)
[2019-04-18] MEDS ORDERED: LEVOFLOXACIN 750 MG/150 ML BAG IV SCH (09:15)
[2019-04-18] MEDS: CYANOCOBALAMIN (VITAMIN B-12) 500 MCG TABLET PO SCH ×2 (10:00→20:37)
[2019-04-18] MEDS: MULTIVIT,THER IRON,CA,FA & MIN 1 TABLET PO SCH (10:00)
[2019-04-18] MEDS: FOLIC ACID 1 MG TABLET PO SCH (10:00)
[2019-04-18] MEDS: THIAMINE 100 MG TABLET PO SCH (10:00)
[2019-04-18] MEDS: DOCUSATE SODIUM 100 MG CAPSULE PO SCH (10:01)
[2019-04-18] MEDS: HEPARIN 5,000 UNIT/ML VIAL SQ SCH ×2 (10:01→20:38)
[2019-04-18] MEDS ORDERED: ONDANSETRON 4 MG/2 ML VIAL IV PRN (10:23)
[2019-04-18] MEDS ORDERED: POTASSIUM CHLORIDE 20 MEQ PACKET PO PRN (10:23)
[2019-04-18] MEDS ORDERED: ACETAMINOPHEN 700 MG/70 ML BOTTLE IV PRN (10:23)
[2019-04-18] MEDS ORDERED: BISMUTH SUBSALICYLATE 15 ML ORAL.SUSP PO PRN (10:23)
[2019-04-18] MEDS ORDERED: guaiFENesin/CODEINE 10 ML UDC PO PRN (10:23)
[2019-04-18] MEDS ORDERED: MAGNESIUM SULFATE 2 GM/50 ML BAG IV PRN (10:23)
[2019-04-18] MEDS ORDERED: BISACODYL 10 MG SUPP.RECT PR PRN (10:23)
[2019-04-18] MEDS ORDERED: hydrALAZINE 20 MG/ML VIAL IV PRN (10:23)
[2019-04-18] MEDS ORDERED: ACETAMINOPHEN 325 MG TABLET PO PRN (10:23)
--- NOTE | 2019-04-18 10:26 | Discharge Summary ---
Medical - DS: Prov Patient information: Note initiated : 04/18/19 at 10:24 am Service Date, if different from initiated Date: [] Patient: Ankit Gandhi 63 y/o M admitted on 04/15/19 for shortness of breath O2 sat 55. Chief Complaint: [] Date of admission: 04/15/19 18:00 Discharge date: 04/20/19 Primary care physician: Denice Bernabe Consults: 04/15/19 Consult to Physician [CONS] Stat Comment: Consulting Provider: Kale Kuo Reason For Exam: Physician to Consult 04/15/19 18:27 Consult to Physician [CONS] Routine Comment: hyponatremia Consulting Provider: Shahram Blue Reason For Exam: Physician to Consult Medical - DS: Meds - Discharge Medications Prescriptions: predniSONE [Prednisone] 20 mg PO [facility] #1 tab Sodium Chloride 1 gm PO DAILY #30 tab Active and Home Medications: Home Medications albuterol 90 mcg/actuation aerosol inhaler 2 puff INHALATION QID PRN 04/04/17 [History Confirmed 04/14/19 Last Taken 03/11/19] budesonide-formoterol HFA 160 mcg-4.5 mcg/actuation aerosol inhaler 2 inh INHALATION BID 04/04/17 [History Confirmed 04/14/19 Last Taken 03/11/19] carvedilol 3.125 mg tablet 3.125 mg PO BID 04/04/17 [History Confirmed 04/14/19 Last Taken 03/11/19] cholecalciferol (vitamin D3) 1,000 unit capsule 2,000 unit PO QDAY cap 04/04/17 [History Confirmed 04/14/19 Last Taken 03/11/19] clopidogrel 75 mg tablet 75 mg PO QDAY 04/04/17 [History Confirmed 04/14/19 Last Taken 03/11/19] guaifenesin ER 600 mg tablet, extended release 12 hr 600 mg PO BID tab 04/04/17 [History Confirmed 04/14/19 Last Taken 03/11/19] ipratropium-albuterol 0.5 mg-3 mg(2.5 mg base)/3 mL nebulization soln 3 ml INHALATION QID ml 04/04/17 [History Confirmed 04/14/19 Last Taken 03/11/19] losartan 100 mg tablet 100 mg PO QDAY 04/04/17 [History Confirmed 04/14/19 Last Taken 03/11/19] losartan 50 mg tablet 50 mg PO QDAY 04/04/17 [History Confirmed 04/14/19 Last Taken 03/11/19] magnesium oxide 420 mg tablet 420 mg PO BID 04/04/17 [History Confirmed 04/14/19 Last Taken 03/11/19] multivitamin capsule 1 tab-cap PO QDAY 04/04/17 [History Confirmed 04/14/19 Last Taken 03/11/19] pantoprazole 40 mg tablet,delayed release 40 mg PO QAM 04/04/17 [History Confirmed 04/14/19 Last Taken 03/11/19] pravastatin 40 mg tablet 40 mg PO QDAY tab 04/04/17 [History Confirmed 04/14/19 Last Taken 03/11/19] pravastatin 80 mg tablet 80 mg PO QDAY tab 04/04/17 [History Confirmed 04/14/19 Last Taken 03/11/19] thiamine HCl (vitamin B1) 100 mg tablet 100 mg PO QDAY 04/04/17 [History Confirmed 04/14/19 Last Taken 03/11/19] vitamin B complex capsule 1 cap PO QDAY 04/04/17 [History Confirmed 04/14/19 Last Taken 03/11/19] amlodipine 10 mg tablet 10 mg PO QDAY 12/31/18 [History Confirmed 04/14/19 Last Taken 03/11/19] bisoprolol fumarate 5 mg tablet 5 mg PO QDAY 12/31/18 [History Confirmed 04/14/19 Last Taken 03/11/19] calcium carbonate-vitamin D3 600 mg calcium-200 unit capsule 1 cap PO QDAY cap 12/31/18 [History Confirmed 04/14/19 Last Taken 03/11/19] cyanocobalamin (vit B-12) 500 mcg tablet 500 mcg PO QDAY 12/31/18 [History Confirmed 04/14/19 Last Taken 03/11/19] doxycycline monohydrate 100 mg capsule 100 mg PO BID 12/31/18 [History Confirmed 04/14/19 Last Taken 03/11/19] fluconazole 100 mg tablet 200 mg PO QDAY 12/31/18 [History Confirmed 04/14/19 Last Taken 03/11/19] food supplement, lactose-reduced oral liquid each PO TID ml 12/31/18 [History Confirmed 04/14/19 Last Taken Unknown] loperamide 2 mg capsule 2 mg PO Q2-4H PRN 12/31/18 [History Confirmed 04/14/19 Last Taken 03/11/19] melatonin 3 mg tablet 6 mg PO HS PRN tab 12/31/18 [History Confirmed 04/14/19 Last Taken 03/11/19] omeprazole 20 mg capsule,delayed release 20 mg PO BID cap 12/31/18 [History Confirmed 04/14/19 Last Taken 03/11/19] prednisone 10 mg tablet 10 mg PO QDAY 12/31/18 [History Confirmed 04/14/19 Last Taken 03/11/19] pyridoxine (vitamin B6) 50 mg capsule 100 mg PO QDAY cap 12/31/18 [History Confirmed 04/14/19 Last Taken 03/11/19] sildenafil 100 mg tablet 100 mg PO ONCE 12/31/18 [History Confirmed 04/14/19 Last Taken 03/11/19] tamsulosin 0.4 mg capsule 0.4 mg PO QDAY 12/31/18 [History Confirmed 04/14/19 Last Taken 03/11/19] tiotropium bromide 18 mcg capsule with inhalation device 1 cap INHALATION QDAY 12/31/18 [History Confirmed 04/14/19 Last Taken 03/11/19] minocycline 100 mg capsule 100 mg PO BID 01/01/19 [History Confirmed 04/14/19 L ast Taken 03/11/19] Medical - DS: Hosp Hospital course: Mr. Gandhi is a 63 year old M Mr. Gandhi is a 63 year old M paraplegic with history of advanced COPD and active smoking who presents to the ER with 3 days onset of worsening shortness of breath along with increasing yellow productive sputum, fever. Patient tried to work with the symptoms however by this morning was barely able to breathe or talk prompting him to come to the ER. He denies exposure to sick contact. Endorses to increasing shortness of breath to the point he has not been able to sleep for the last 48 hours. Has become extremely anxious labored with a feeling of impending doom. Initial work-up in the ER was consistent with acute COPD exacerbation with hypercapnia with a pH of 7.27/64 PCO2. Patient was also profoundly hyponatremic at 119 and demonstrated fluctuating mental status. 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 He is accompanied with his sister. He has paraplegic since 2-1/2 years ago and confined to bed with occasional mobility using a wheelchair. He has a friend who helps him with activities of daily living. Over time he has progressively lost weight and currently down to a BMI of 15. He denies diarrhea, headache, photophobia. He has a chronic indwelling Sanchez's catheter and sees Dr. Fernandes urologist. He denies joint pain, rash, glandular swelling. 04/16-patient critically ill with worsening shortness of breath. Unable to sleep last night. Unable to talk in full sentences. Persistent hypoxia with tachypnea and tachycardia requiring 4 L oxygen. Requesting something to sleep. Patient refusing noninvasive ventilation due to claustrophobia. Understands these risk for imminent . Continue steroids/bronchodilators. Sodium 118. Urine osmolality greater than serum osmolarity indicating component of SIADH. On antibiotic coverage for complicated UTI. GNR on urine culture 04/17-patient doing better. No overnight events. Resting comfortably after administration of Ativan. Improved urine output/tachypnea/tachycardia resolved. Systolic stable. Afebrile. Sodium improved to 126. LFTs downtrending. On protein calorie supplements per dietitian. Antibiotic coverage for UTI. GNR on culture, sensitivity awaited. Renal ultrasound left renal cyst without acute process 04/18 No overnight events. Wants to go home. Wants to smoke cigarettes. Denies shortness of breath out of his normal level. His current drop is his normal chronic cough. 04/19 Continues to feel better. No overnight events. Appears to have refeeding syndrome significantly low phosphorus. Have also been replacing potassium magnesium. Which are both improving. Sodium is improved. Agitated about not going home yet. But given the severity of his hypo phosphatemia and refeeding syndrome was able to convince him to stay 1 more night. 04/20 Improved and stable. Stable for discharge. High risk for readmission given continued alcohol use. Discharge diagnosis: Acute hypoxic hypercapnic respiratory failure COPD hyponatremia Secondary discharge diagnosis: Hypokalemia hypomagnesemia Klebsiella complicated UTI kidney stone protein calorie malnutrition CAD hypertension paraplegia tobacco abuse - Time Spent with Patient Total time spent providing and/or coordinating discharge services: Greater than 30 minutes Medical - DS: Exam - Constitutional Vitals: Vital Signs Temp Pulse Resp BP Pulse Ox 04/18/19 08:10 111 H 23 H 141/92 87 L 04/18/19 07:49 109 H 18 96 04/18/19 07:00 109 H 20 172/100 86 L 04/18/19 06:00 20 168/94 04/18/19 05:14 99 H 16 97 04/18/19 05:00 96 H 13 147/92 96 04/18/19 04:00 99.0 F 105 H 17 156/96 91 04/18/19 03:31 110 H 18 94 04/18/19 03:00 101 H 28 H 158/100 95 04/18/19 02:00 103 H 152/86 100 04/18/19 01:09 19 04/18/19 01:00 110 H 21 149/88 94 04/18/19 00:01 98.8 F 118 H 20 144/91 91 04/17/19 23:01 112 H 20 141/84 93 04/17/19 22:23 112 H 83 L 04/17/19 22:01 140/90 04/17/19 21:09 103 H 92 04/17/19 21:01 92 H 131/76 95 04/17/19 20:01 103 H 18 142/74 96 04/17/19 20:00 90 04/17/19 19:16 107 H 19 04/17/19 19:01 23 H 150/88 04/17/19 18:01 120 H 15 168/100 90 04/17/19 17:01 109 H 21 150/88 96 04/17/19 16:00 97.8 F 149/98 04/17/19 15:16 107 H 19 120/93 95 04/17/19 14:00 103 H 30 H 167/89 95 04/17/19 13:00 101 H 153/98 93 04/17/19 12:00 97.8 F 15 116/78 93 04/17/19 11:29 97 H 22 04/17/19 11:00 20 137/74 Intake and Output 04/17/19 04/18/19 04/18/19 21:59 05:59 13:59 Intake Total 1985 1050 1544.5455 Output Total 3530 0460 450 Balance 235 -1500 1094.5455 Intake: IV 1305 1050 1304.5455 NaCl 0.9% W/KCl 20Meq 1000ML 1, 1000 1000 1000 000 ml @ 150 mls/hr IV .Q6H40M [facility] Rx#:[id number] Zosyn 3.375 gm In Sodium 50 50 50 Chloride 0.9% 50 ml @ 100 mls/ hr IV Q6H [facility] Rx#:[id number] Potassium Phosphate 20 Meq In 254.5455 Dextrose 5% in Water 250 ml @ 127.273 mls/hr IV ONCE ONE Rx#: [id number] Oral 680 240 Output: Urine Catheter Amount 1750 2550 450 Other: Meal Lunch Percent of Meal Consumed 50% Urine Color Uretheral (Snachez) Light Radha Light Radha Stool Size Moderate Stool Color Brown Stool Consistency Liquid # of times incontinent of 1 Bowels Weight 46.72 kg Medical - DS: Data Labs on day of discharge: Labs from last 24 hours 04/18/19 04/18/19 04/17/19 06:36 04:00 22:07 Sodium 134 136 129 L Potassium 2.6 L* 2.7 L* 2.9 L* Chloride 84 L 84 L 84 L Carbon Dioxide 39 H 38 H 34 H Anion Gap 11.0 14.0 11.0 BUN 4 L 5 L 5 L Creatinine 0.4 L 0.4 L 0.4 L GFR Calculation 127 127 127 Glucose 207 H 143 H 166 H Uric Acid 1.7 L Calcium 6.4 L 7.0 L 7.2 L Phosphorus 1.3 L 1.3 L Magnesium 1.7 1.7 Total Bilirubin 0.3 0.3 Direct Bilirubin < 0.2 GGT 175 H AST 64 H 73 H ALT 58 H 63 H Alkaline Phosphatase 154 H 171 H Lactate Dehydrogenase 271 H Total Protein 5.7 L 6.2 Albumin 3.2 3.3 3.0 L Globulin 2.5 2.9 Albumin/Globulin Ratio 1.3 1.1 Triglycerides 141 04/17/19 14:06 Sodium 131 L Potassium 3.6 Chloride 90 L Carbon Dioxide 26 Anion Gap 15.0 BUN 6 L Creatinine 0.4 L GFR Calculation 127 Glucose 182 H Uric Acid Calcium 7.4 L Phosphorus 1.2 L Magnesium Total Bilirubin Direct Bilirubin GGT AST ALT Alkaline Phosphatase Lactate Dehydrogenase Total Protein Albumin 3.1 L Globulin Albumin/Globulin Ratio Triglycerides Preliminary micro results at discharge 04/15/19 14:59 Blood Culture - Preliminary Blood 04/15/19 15:04 Blood Culture - Preliminary Blood Medical - DS: A/P - Patient/Caregiver Discharge Instructions Activity: increase activity as tolerated Diet: Cardiac Additional Instructions: Referral to see urology outpatient for kidney stone 7 to 10 days - Follow up Plan Follow up with: Denice Bernabe ARNP [Primary Care Provider] - Jamie Colindres MD [Physician] - Sanya Fernandes MD [Physician] - (14mm left kidney stone) Disposition: Home, Self-Care Prognosis: Undetermined Rehab Potential: Undetermined Overall status at discharge: patient is progressing back to baseline Medical - DS: Qual - VTE Deep Vein Thrombosis/Pulmonary Embolism Present on Admission: No
[2019-04-18] MEDS ORDERED: POTASSIUM PHOSPHATE 40 MEQ in DEXTROSE 5% IN WATER 500 ML IV ONE (11:00)
--- NOTE | 2019-04-18 11:28 | Nephrology Progress Note ---
Subjective Patient information: Note initiated : 04/18/19 at 11:26 am Service Date, if different from initiated Date: [] Patient: Ankit Gandhi 63 y/o M admitted on 04/15/19 for shortness of breath O2 sat 55. Chief Complaint: [] Principal diagnosis: Hyponatremia Interval history: Slow improvement Electrolye abnormalities secondary to alcohism and poor po intake (except beer) persist Pertinent ROS: N/A Objective - Vital Signs Vital signs: Vital Signs Temp Pulse Resp BP Pulse Ox 04/18/19 08:10 111 H 23 H 141/92 87 L 04/18/19 07:49 109 H 18 96 04/18/19 07:00 109 H 20 172/100 86 L 04/18/19 06:00 20 168/94 04/18/19 05:14 99 H 16 97 04/18/19 05:00 96 H 13 147/92 96 04/18/19 04:00 99.0 F 105 H 17 156/96 91 04/18/19 03:31 110 H 18 94 04/18/19 03:00 101 H 28 H 158/100 95 04/18/19 02:00 103 H 152/86 100 04/18/19 01:09 19 04/18/19 01:00 110 H 21 149/88 94 04/18/19 00:01 98.8 F 118 H 20 144/91 91 04/17/19 23:01 112 H 20 141/84 93 04/17/19 22:23 112 H 83 L 04/17/19 22:01 140/90 04/17/19 21:09 103 H 92 04/17/19 21:01 92 H 131/76 95 04/17/19 20:01 103 H 18 142/74 96 04/17/19 20:00 90 04/17/19 19:16 107 H 19 04/17/19 19:01 23 H 150/88 04/17/19 18:01 120 H 15 168/100 90 04/17/19 17:01 109 H 21 150/88 96 04/17/19 16:00 97.8 F 149/98 04/17/19 15:16 107 H 19 120/93 95 04/17/19 14:00 103 H 30 H 167/89 95 04/17/19 13:00 101 H 153/98 93 04/17/19 12:00 97.8 F 15 116/78 93 04/17/19 11:29 97 H 22 Intake and Output 04/17/19 04/18/19 04/18/19 21:59 05:59 13:59 Intake Total 2035 1050 1864.5455 Output Total 1750 2550 450 Balance 285 -1500 1414.5455 Intake: IV 1355 1050 1624.5455 Calcium Gluconate 9.3 Meq In 70 Dextrose 5% in Water 50 ml @ 70 mls/hr IV ONCE ONE Rx#: [id number] NaCl 0.9% W/KCl 20Meq 1000ML 1, 1000 1000 1200 000 ml @ 150 mls/hr IV .Q6H40M [facility] Rx#:[id number] Zosyn 3.375 gm In Sodium 50 50 50 Chloride 0.9% 50 ml @ 100 mls/ hr IV Q6H [facility] Rx#:[id number] Potassium Phosphate 20 Meq In 254.5455 Dextrose 5% in Water 250 ml @ 127.273 mls/hr IV ONCE ONE Rx#: [id number] Oral 680 240 Output: Urine Catheter Amount 1750 2550 450 Other: Meal Lunch Percent of Meal Consumed 50% Urine Color Uretheral (Sanchez) Light Radha Light Radha Stool Size Moderate Stool Color Brown Stool Consistency Liquid # of times incontinent of 1 Bowels Weight 103 lb Intake & Output: Intake & Output 04/17/19 04/18/19 04/18/19 21:59 05:59 13:59 Intake Total 2035 1050 1864.5455 Output Total 1750 2550 450 Balance 285 -1500 1414.5455 Weight 103 lb Intake: IV 1355 1050 1624.5455 Calcium Gluconate 9.3 Meq In 70 Dextrose 5% in Water 50 ml @ 70 mls/hr IV ONCE ONE Rx#: [id number] NaCl 0.9% W/KCl 20Meq 1000ML 1, 1000 1000 1200 000 ml @ 150 mls/hr IV .Q6H40M [facility] Rx#:[id number] Zosyn 3.375 gm In Sodium 50 50 50 Chloride 0.9% 50 ml @ 100 mls/ hr IV Q6H [facility] Rx#:[id number] Potassium Phosphate 20 Meq In 254.5455 Dextrose 5% in Water 250 ml @ 127.273 mls/hr IV ONCE ONE Rx#: [id number] Oral 680 240 Output: Urine Catheter Amount 8746 2690 450 Other: Meal Lunch Percent of Meal Consumed 50% Urine Color Uretheral (Sanchez) Light Radha Light Radha Stool Size Moderate Stool Color Brown Stool Consistency Liquid # of times incontinent of 1 Bowels - General Appearance General appearance: cachectic, chronically ill EENT: ATNC, PERRL, mucous membranes moist Neck: no JVD Respiratory: course breath sounds, rhonchi Cardiology: no murmurs, no edema Gastrointestinal: normoactive bowel sounds Integumentary: no rash, warm and dry Neurologic: no focal deficit, no asterixis Musculoskeletal: no deformities Psychiatric: mood/affect appropriate - Lab 04/17/19 03:50 04/18/19 06:36 Most recent lab results Calcium 6.4 mg/dl (8.6-10.4) L 04/18/19 06:36 Phosphorus 1.3 mg/dL (2.7-4.5) L 04/18/19 04:00 Magnesium 1.7 mg/dL (1.6-2.5) 04/18/19 04:00 Assessment and Plan (1) Hyponatremia 1. Continue NS with KCl and Q 8 hour furosemide 2. Nutrition, nutrition, nutrition 3. Oral fluid restriction 4. Swallow all meds with nutritional supplement not water. The nutritional supplement does NOT COUNT in the daily fluid restriction. 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 No signs of impending DT's 2. Wants a beer 3. Azazingly, if its true he drinks a 12 pack a day, thats > 12% of body weight in beer a day!!! 4. Therefore, he needs "salt loading" due to his drinking habit 5. Once he hits Na 130, can be switched to just po fluid restriction +/- salt tables, but I suspecion he will not continue to do things to help hiself after discharge. Status: Chronic Priority: Medium (3) Hyponatremia with normal extracellular fluid volume 1. As above. 2. Free H2O excess with Na deficiency (beer > 144 oz/day)) is present and well tolerated as he probably has a "reset osmostat" Status: Acute (4) Alteration in electrolyte and fluid balance 1. Replacing K and PO4 as needed. 2. Watch Mg and Ca as well Status: Acute (5) UTI due to Klebsiella species 1. Present on admission 2. On pip/salina 3. Sanchez out soon and switch to TMP/SMX Status: Acute (6) Metabolic alkalosis with respiratory acidosis 1. Stop diuretics 2. NS with KCl x 2 liters Status: Acute Comment: Diuretic induced alkalosis and COPD/AE respiratory acidosis
[2019-04-18] MEDS ORDERED: NACL 0.9% IV SCH ×2 (12:00→14:00)
[2019-04-18] MEDS ORDERED: POTASSIUM PHOSPHATE IV SCH ×2 (12:00→14:00)
[2019-04-18] MEDS ORDERED: KCL 20 MEQ IV SCH ×2 (12:00→14:00)
[2019-04-18] MEDS ORDERED: IPRATROPIUM/ALBUTEROL 3 ML AMPUL.NEB NEB SCH (13:00)
[2019-04-18] MEDS: MAGNESIUM OXIDE 400 MG TABLET PO SCH (20:38)
[2019-04-18] MEDS ORDERED: MELATONIN 3 MG TABLET PO PRN (21:00)
[2019-04-18] MEDS ORDERED: traZODone HCL 50 MG TABLET PO PRN (21:00)
[2019-04-18] MEDS ORDERED: MAGNESIUM HYDROXIDE 30 ML ORAL.SUSP PO PRN (21:00)
[2019-04-19] MEDS: DOCUSATE SODIUM 100 MG CAPSULE PO SCH ×3 (02:08→20:28)
[2019-04-19] MEDS: SENNOSIDES/DOCUSATE SODIUM 1 TAB TABLET PO SCH ×2 (02:08→20:28)
[2019-04-19] MEDS: IPRATROPIUM/ALBUTEROL 3 ML AMPUL.NEB NEB SCH ×6 (02:15→20:00)
[2019-04-19 05:54] LABS: ALT/SGPT 57 U/l (0-40); AST/SGOT 64 U/l (0-37); Albumin 2.7 gm/dL (3.2-5.2); Albumin/Globulin Ratio 1.1 (1.0-2.3); Alkaline Phosphatase 133 U/L (39-117); Bilirubin,Direct < 0.2 mg/dL (0.0-0.3); Bilirubin,Total 0.3 mg/dL (0.0-1.0); Blood Urea Nitrogen 5 mg/dl (8-23); Calcium 7.9 mg/dl (8.6-10.4); Carbon Dioxide 37 mmol/L (22-30); Chloride 91 mmol/L (96-108); Globulin 2.4 gm/dL (2.2-3.7); Glomerular Filtration Rate 127; Glucose 104 mg/dL (70-105); Lactate Dehydrogenase 214 U/L (94-250); Magnesium 2.1 mg/dL (1.6-2.5); Phosphorous 0.9 mg/dL (2.7-4.5); Potassium 3.7 mmol/L (3.3-5.1); Sodium 135 mmol/L (133-145); Triglycerides 125 mg/dl (<150); Uric Acid 1.4 mg/dL (2.5-8.0)
--- NOTE | 2019-04-19 07:48 | Internal Med Progress Note ---
Medical - PN: Subj Patient information: Note initiated : 04/19/19 at 7:45 am Service Date, if different from initiated Date: [] Patient: Ankit Gandhi a 63 y/o M admitted on 04/15/19 for shortness of breath O2 sat 55. Chief Complaint: [] Interval history: Mr. Gandhi is a 63 year old M paraplegic with history of advanced COPD and active smoking who presents to the ER with 3 days onset of worsening shortness of breath along with increasing yellow productive sputum, fever. Patient tried to work with the symptoms however by this morning was barely able to breathe or talk prompting him to come to the ER. He denies exposure to sick contact. Endorses to increasing shortness of breath to the point he has not been able to sleep for the last 48 hours. Has become extremely anxious labored with a feeling of impending doom. Initial work-up in the ER was consistent with acute COPD exacerbation with hypercapnia with a pH of 7.27/64 PCO2. Patient was also profoundly hyponatremic at 119 and demonstrated fluctuating mental status. Extensive pyuria was noted on urine test(long-standing Leon's catheter for history of urine retention secondary to spinal cord injury). He is accompanied with his sister. He has paraplegic since 2-1/2 years ago and confined to bed with occasional mobility using a wheelchair. He has a friend who helps him with activities of daily living. Over time he has progressively lost weight and currently down to a BMI of 15. He denies diarrhea, headache, photophobia. He has a chronic indwelling Leon's catheter and sees Dr. Fernandes urologist. He denies joint pain, rash, glandular swelling. 04/16-patient critically ill with worsening shortness of breath. Unable to sleep last night. Unable to talk in full sentences. Persistent hypoxia with tachypnea and tachycardia requiring 4 L oxygen. Requesting something to sleep. Patient refusing noninvasive ventilation due to claustrophobia. Understands these risk for imminent . Continue steroids/bronchodilators. Sodium 118. Urine osmolality greater than serum osmolarity indicating component of SIADH. On antibiotic coverage for complicated UTI. GNR on urine culture 04/17-patient doing better. No overnight events. Resting comfortably after administration of Ativan. Improved urine output/tachypnea/tachycardia resolved. Systolic stable. Afebrile. Sodium improved to 126. LFTs downtrending. On protein calorie supplements per dietitian. Antibiotic coverage for UTI. GNR on culture, sensitivity awaited. Renal ultrasound left renal cyst without acute process 04/18 No overnight events. Wants to go home. Wants to smoke cigarettes. Denies shortness of breath out of his normal level. His current drop is his normal chronic cough. 04/19 Continues to feel better. No overnight events. Appears to have refeeding syndrome significantly low phosphorus. Have also been replacing potassium magnesium. Which are both improving. Sodium is improved. Agitated about not going home yet. But given the severity of his hypo phosphatemia and refeeding syndrome was able to convince him to stay 1 more night. Review of Systems: Occasional headache. Denies fever/chills/nausea/vomiting/chest or abdominal pain/diarrhea. Otherwise see above. - Constitutional Vitals: Vital Signs Temp Pulse Resp BP Pulse Ox 99 F 75 17 132/67 93 04/19/19 04:00 04/19/19 06:47 04/19/19 06:47 04/19/19 06:01 04/19/19 06:47 Period Temp Pulse Resp BP Sys/Hensley Pulse Ox Last 24 Hr 97.8 F-99.4 F 58-113 12-28 101-143/63-108 3-99 Intake and Output 04/18/19 04/19/19 04/19/19 21:59 05:59 13:59 Intake Total 1101 Output Total 850 575 Balance 251 -575 Weight 46.584 kg Intake & Output: Intake & Output 04/18/19 04/19/19 04/19/19 21:59 05:59 13:59 Intake Total 1101 Output Total 850 575 Balance 251 -575 Weight 46.584 kg Intake: IV 150 Oral 951 Output: Urine Catheter Amount 850 575 Other: Meal Dinner Percent of Meal Consumed 50% Nourishment/Supplement name [email or web address] Urine Color Uretheral (Leon) Light Radha Exam: General: Alert, Awake, No acute Distress, cachectic Eyes/N/T: EOMI, Head/Neck: neck supple, CV: RRR, No murmurs, Pulm: Diminished bilaterally, no wheezing Abd: soft, nontender, +BS x4 Ext: no clubbing/cyanosis/edema Neuro: Alert, paraplegic lower extremities previous condition Skin: warm/dry Medical - PN: Obj Da - Labs CBC & Chem 7: 04/17/19 03:50 04/19/19 03:45 Labs: Abnormal Lab Results 04/19/19 04/18/19 04/18/19 03:45 06:36 04:00 RBC Hgb Hct RDW Seg Neutrophils % Lymphocytes % RBC Morphology Polychromasia Anisocytosis Target Cells RBC Fragments Sodium Potassium 2.6 L* 2.7 L* Chloride 91 L 84 L 84 L Carbon Dioxide 37 H 39 H 38 H Anion Gap 7.0 L BUN 5 L 4 L 5 L Creatinine 0.4 L 0.4 L 0.4 L Glucose 207 H 143 H Uric Acid 1.4 L 1.7 L Calcium 7.9 L 6.4 L 7.0 L Phosphorus 0.9 L 1.3 L GGT 138 H 175 H AST 64 H 64 H 73 H ALT 57 H 58 H 63 H Alkaline Phosphatase 133 H 154 H 171 H Lactate Dehydrogenase 271 H Total Protein 5.1 L 5.7 L Albumin 2.7 L 04/17/19 04/17/19 04/17/19 22:07 14:06 03:50 RBC Hgb Hct RDW Seg Neutrophils % Lymphocytes % RBC Morphology Polychromasia Anisocytosis Target Cells RBC Fragments Sodium 129 L 131 L 126 L Potassium 2.9 L* Chloride 84 L 90 L 84 L Carbon Dioxide 34 H Anion Gap BUN 5 L 6 L 7 L Creatinine 0.4 L 0.4 L 0.5 L Glucose 166 H 182 H 131 H Uric Acid Calcium 7.2 L 7.4 L 7.3 L Phosphorus 1.3 L 1.2 L 2.0 L GGT 144 H AST 53 H ALT Alkaline Phosphatase 168 H Lactate Dehydrogenase 316 H Total Protein 5.4 L Albumin 3.0 L 3.1 L 2.8 L 04/17/19 04/16/19 04/16/19 03:50 22:00 16:13 RBC 3.90 L Hgb 12.4 L Hct 37.2 L RDW 16.1 H Seg Neutrophils % 80 H Lymphocytes % 6 L RBC Morphology Abnorm A Polychromasia Anisocytosis 1+ A Target Cells Few A RBC Fragments Sodium 125 L 123 L Potassium Chloride 84 L Carbon Dioxide Anion Gap BUN Creatinine Glucose Uric Acid Calcium Phosphorus GGT AST ALT Alkaline Phosphatase Lactate Dehydrogenase Total Protein Albumin 04/16/19 04/16/19 04/16/19 12:08 08:26 03:50 RBC Hgb Hct RDW Seg Neutrophils % 79 H Lymphocytes % 14 L RBC Morphology Abnorm A Polychromasia 1+ A Anisocytosis Target Cells RBC Fragments Rare A Sodium 123 L 118 L* Potassium Chloride Carbon Dioxide Anion Gap BUN Creatinine Glucose Uric Acid Calcium Phosphorus GGT AST ALT Alkaline Phosphatase Lactate Dehydrogenase Total Protein Albumin Meds: Medications Acetaminophen (Tylenol) 650 mg PO Q4-6HP PRN PRN Reason: PAIN/FEVER > 101 Albuterol/Ipratropium (Duoneb) 3 ml NEB Q4HP PRN PRN Reason: SHORTNESS OF BREATH Albuterol/Ipratropium (Duoneb) 3 ml NEB Q6HRT [facility] Last Admin: 04/19/19 03:32 Dose: 3 ml Documented by: Amlodipine Besylate (Norvasc) 10 mg PO QDAY [facility] Atorvastatin Calcium (Lipitor) 10 mg PO QDAY [facility] Bisacodyl (Dulcolax) 10 mg LA Q2-3DAYS PRN PRN Reason: Constipation Bismuth Subsalicylate (Pepto Bismol) 15 ml PO Q4HP PRN PRN Reason: Dyspepsia Bisoprolol Fumarate (Zebeta) 5 mg PO QDAY [facility] Budesonide (Pulmicort) 0.5 mg NEB Q12 [facility] Last Admin: 04/18/19 20:09 Dose: Not Given Documented by: Calcium/Vitamin D (Calcium W/Vit D3) 500 mg PO DAILY [facility] Clopidogrel Bisulfate (Plavix) 75 mg PO QDAY [facility] Cyanocobalamin (Vitamin B-12) 1,000 mcg PO BID [facility] Stop: 04/21/19 09:01 Last Admin: 04/18/19 20:37 Dose: 1,000 mcg Documented by: Docusate Sodium (Colace) 100 mg PO BID [facility] Last Admin: 04/19/19 02:08 Dose: Not Given Documented by: Folic Acid (Folic Acid) 1 mg PO DAILY [facility] Guaifenesin/Codeine Phosphate (Robitussin Ac) 10 ml PO Q4HP PRN PRN Reason: Cough Heparin Sodium (Porcine) (Heparin) 5,000 unit SQ Q12 [facility] Last Admin: 04/18/19 20:38 Dose: 5,000 unit Documented by: Hydralazine HCl (Apresoline) 10 mg IV Q4-6HP PRN PRN Reason: Hypertension Levofloxacin (Levaquin) 750 mg in 150 mls @ 100 mls/hr IV DAILY [facility] Magnesium Sulfate (Magnesium Sulfate) 2 gm in 50 mls @ 50 mls/hr IV UD PRN PRN Reason: MG = or < 1.7 Acetaminophen (Ofirmev) 700 mg in 70 mls @ 140 mls/hr IV Q6HP PRN PRN Reason: PAIN/FEVER > 101 Potassium Phosphate 40 meq/ (Dextrose) 509.0909 mls @ 127.273 mls/hr IV ONCE ONE Stop: 04/19/19 11:43 Iron Carb/Multivit/[place]/Folic Acid (Multivitamin W/Minerals) 1 tab PO DAILY [facility] Lorazepam (Ativan) 0.5 mg IV Q6HP PRN PRN Reason: ANXIETY/SEDATION Magnesium Hydroxide (Milk Of Magnesia) 30 ml PO HSP PRN PRN Reason: Constipation Magnesium Oxide (Magnesium Oxide) 400 mg PO BID [facility] Last Admin: 04/18/19 20:38 Dose: 400 mg Documented by: Melatonin (Melatonin 3mg Tablet) 3 mg PO HSP PRN PRN Reason: Insomnia Morphine Sulfate (Morphine) 1 mg IV Q4HP PRN PRN Reason: PAIN LEVEL > 6 Ondansetron HCl (Zofran) 4 mg IV Q4-6HP PRN PRN Reason: Nausea And Vomiting Potassium Chloride (Klor-Con) 40 meq PO DAILYP PRN PRN Reason: K+ < 3.5 Potassium/Phosphorus/Sodium (Neutra Phos) 2 packet PO BID [facility]) [facility] Pyridoxine HCl (Vitamin B-6) 100 mg PO DAILY [facility] Senna/Docusate Sodium (Senna Plus Tablet) 1 tab PO HS [facility] Last Admin: 04/19/19 02:08 Dose: Not Given Documented by: Sodium Chloride (Saline Flush) 10 ml IV Q8 [facility] Last Admin: 04/18/19 22:32 Dose: 10 ml Documented by: Tamsulosin HCl (Flomax) 0.4 mg PO QDAY [facility] Thiamine HCl (Vitamin B1) 100 mg PO DAILY [facility] Trazodone HCl (Desyrel) 50 mg PO HSP PRN PRN Reason: Insomnia Vitamin D (Vitamin D3) 2,000 unit PO DAILY [facility] Medical - PN: A/P - Time Spent With Patient Total time spent is greater than 50% in coordination of care (as documented) at patient's floor/unit and/or counseling patient: - Narrative A/P Narrative: A: *Acute hypoxic/hypercapnic respiratory failure 2/2 AECOPD: Clinically improving. -4L NC which is baseline *AECOPD (3-5L@home): Clinically improved -Remains a very high risk mortality. 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 *14 mm left kidney lesion-will need further evaluation on discharge. PCP to coordinate *Elevated LFTs: 2/2 sepsis/end-organ dysfunction/underlying alcoholism. improving *Severe protein calorie malnutrition: BMI 15 *CAD: continue Plavix/BB/statin *HTN: losartan/amlodipine/bisoprolol *BPH: on tamsulosin *Paraplegia: continue frequent turning/specialty bed to prevent decubitus *GERD on PPI Plan: -steroids/bronchodilators/supplemental oxygen -PO levaquin -Improved short-term prognosis based on clinical improvement in the last 48 hours. -Continue Free water restriction/gentle saline infusion -prn electrolyte replacement -Protein calorie supplements/multivitamins/minerals -pt/ot -Patient follows up outpatient with Dr. Colindres. -Follow-up with urology outpatient for kidney stone -clarify home meds -ppx: Heparin DNR Medical - PN: Qual - VTE Deep Vein Thrombosis/Pulmonary Embolism Present on Admission: No
[2019-04-19] MEDS ORDERED: POTASSIUM PHOSPHATE 40 MEQ in DEXTROSE 5% IN WATER 500 ML IV ONE (08:00)
[2019-04-19] MEDS: BUDESONIDE 0.5 MG/2 ML AMPUL.NEB NEB SCH ×2 (08:31→20:01)
[2019-04-19] MEDS: 0.9 % SODIUM CHLORIDE 10 ML SYRINGE IV SCH ×3 (09:28→21:57)
[2019-04-19] MEDS: predniSONE 20 MG TABLET PO SCH (09:28)
[2019-04-19] MEDS: MULTIVIT,THER IRON,CA,FA & MIN 1 TABLET PO SCH (09:29)
[2019-04-19] MEDS: FOLIC ACID 1 MG TABLET PO SCH (09:29)
[2019-04-19] MEDS: VITAMIN D3 1,000 UNIT TABLET PO SCH (09:29)
[2019-04-19] MEDS: TAMSULOSIN 0.4 MG CAPSULE PO SCH (09:29)
[2019-04-19] MEDS: amLODIPine 10 MG TABLET PO SCH (09:29)
[2019-04-19] MEDS: BISOPROLOL 5 MG TABLET PO SCH (09:29)
[2019-04-19] MEDS: PYRIDOXINE 100 MG TABLET PO SCH (09:30)
[2019-04-19] MEDS: CYANOCOBALAMIN (VITAMIN B-12) 500 MCG TABLET PO SCH ×2 (09:30→20:28)
[2019-04-19] MEDS: CALCIUM W/VIT D3 500 MG TABLET PO SCH (09:30)
[2019-04-19] MEDS: CLOPIDOGREL 75 MG TABLET PO SCH (09:30)
[2019-04-19] MEDS: MAGNESIUM OXIDE 400 MG TABLET PO SCH ×2 (09:30→20:28)
[2019-04-19] MEDS: THIAMINE 100 MG TABLET PO SCH (09:30)
[2019-04-19] MEDS: ATORVASTATIN 20 MG TABLET PO SCH (09:30)
[2019-04-19] MEDS: LEVOFLOXACIN 750 MG/150 ML BAG IV SCH (09:31)
[2019-04-19] MEDS: NEUTRA PHOS 1 PACKET PO SCH ×2 (09:31→20:27)
[2019-04-19] MEDS: HEPARIN 5,000 UNIT/ML VIAL SQ SCH ×2 (09:31→20:27)
[2019-04-19] MEDS: NICOTINE 21 MG PATCH TOPICAL SCH (09:44)
[2019-04-19] MEDS: NICOTINE 14 MG PATCH TOPICAL SCH (13:44)
[2019-04-19] MEDS: LORazepam 2 MG/ML VIAL IV PRN ×2 (14:09→23:03)
[2019-04-20] MEDS: IPRATROPIUM/ALBUTEROL 3 ML AMPUL.NEB NEB SCH ×2 (01:51→08:38)
[2019-04-20 05:55] LABS: ALT/SGPT 71 U/l (0-40); AST/SGOT 67 U/l (0-37); Albumin 2.7 gm/dL (3.2-5.2); Alkaline Phosphatase 135 U/L (39-117); Bilirubin,Direct < 0.2 mg/dL (0.0-0.3); Bilirubin,Total 0.3 mg/dL (0.0-1.0); Blood Urea Nitrogen 5 mg/dl (8-23); Calcium 7.9 mg/dl (8.6-10.4); Carbon Dioxide 31 mmol/L (22-30); Chloride 87 mmol/L (96-108); Globulin 2.6 gm/dL (2.2-3.7); Glomerular Filtration Rate 116; Glucose 87 mg/dL (70-105); Lactate Dehydrogenase 259 U/L (94-250); Phosphorous 2.5 mg/dL (2.7-4.5); Potassium 4.1 mmol/L (3.3-5.1); Sodium 130 mmol/L (133-145); Triglycerides 129 mg/dl (<150); Uric Acid 1.4 mg/dL (2.5-8.0)
[2019-04-20] MEDS: 0.9 % SODIUM CHLORIDE 10 ML SYRINGE IV SCH ×2 (05:56→08:14)
[2019-04-20] MEDS: LEVOFLOXACIN 750 MG/150 ML BAG IV SCH (08:14)
[2019-04-20] MEDS: amLODIPine 10 MG TABLET PO SCH (08:14)
[2019-04-20] MEDS: MULTIVIT,THER IRON,CA,FA & MIN 1 TABLET PO SCH (08:14)
[2019-04-20] MEDS: FOLIC ACID 1 MG TABLET PO SCH (08:14)
[2019-04-20] MEDS: NEUTRA PHOS 1 PACKET PO SCH (08:14)
[2019-04-20] MEDS: BISOPROLOL 5 MG TABLET PO SCH (08:14)
[2019-04-20] MEDS: DOCUSATE SODIUM 100 MG CAPSULE PO SCH (08:15)
[2019-04-20] MEDS: MAGNESIUM OXIDE 400 MG TABLET PO SCH (08:15)
[2019-04-20] MEDS: ATORVASTATIN 20 MG TABLET PO SCH (08:15)
[2019-04-20] MEDS: PYRIDOXINE 100 MG TABLET PO SCH (08:15)
[2019-04-20] MEDS: THIAMINE 100 MG TABLET PO SCH (08:15)
[2019-04-20] MEDS: CLOPIDOGREL 75 MG TABLET PO SCH (08:15)
[2019-04-20] MEDS: predniSONE 20 MG TABLET PO SCH (08:15)
[2019-04-20] MEDS: TAMSULOSIN 0.4 MG CAPSULE PO SCH (08:15)
[2019-04-20] MEDS: CALCIUM W/VIT D3 500 MG TABLET PO SCH (08:15)
[2019-04-20] MEDS: HEPARIN 5,000 UNIT/ML VIAL SQ SCH (08:16)
[2019-04-20] MEDS: VITAMIN D3 1,000 UNIT TABLET PO SCH (08:16)
[2019-04-20] MEDS: CYANOCOBALAMIN (VITAMIN B-12) 500 MCG TABLET PO SCH (08:16)
[2019-04-20] MEDS: BUDESONIDE 0.5 MG/2 ML AMPUL.NEB NEB SCH (08:38)
[2019-04-20] MEDS: NICOTINE 21 MG PATCH TOPICAL SCH (10:05)
[2019-04-20] MEDS: NICOTINE 14 MG PATCH TOPICAL SCH (10:05)
== END 2019-04-20 10:45 | disposition home or self-care (01) | DRG 189 ==
LOC: ED 14:42 → ICU 18:00
PROVIDERS: ADMIT Internal Medicine; ATTEND Internal Medicine

== ENCOUNTER 2019-04-24 13:41 | Inpatient (IN) ==
[2019-04-24] MEDS ORDERED: IOPAMIDOL 100 ML BOTTLE IV ONE (13:42)
[2019-04-24] MEDS ORDERED: IPRATROPIUM/ALBUTEROL 3 ML AMPUL.NEB NEB ONE (13:56)
--- NOTE | 2019-04-24 14:12 | XRay Report ---
HISTORY: Shortness of breath and COPD FINDINGS: Lungs are mildly hyperinflated with flattened diaphragms. There is subtle interstitial fibrosis throughout both lungs. There is no evidence of pneumonia, mass or congestive heart failure. The heart size is relatively small. There is no enlargement of the central pulmonary arteries. Comparison with the prior chest x-ray done on 04/15/[address] scan on 05/26/18 shows little change. IMPRESSION: Stable emphysema and no acute abnormality Interpreted and Authenticated by: Michael Mehta 04/24/19
[2019-04-24] MEDS ORDERED: methylPREDNISolone SOD SUCC 125 MG/2 ML VIAL IV ONE (14:20)
[2019-04-24 14:51] LABS: ABG Methemoglobin 0.3 % (0.4-1.5); Total Hemoglobin 11.8 gm/dL (13.5-16.5); VBG Base Excess 1.1 (-2.0-2.0); VBG HCO3 26.3 mmol/L (24.0-28.0); VBG Oxygen Saturation 91.3 % (40.0-70.0); VBG PCO2 44.2 mmHg (41.0-51.0); VBG PH 7.39 U (7.32-7.42); VBG PO2 129 mmHg (25-40); VBG Total CO2 27.6 mmol/L (25.0-29.0)
[2019-04-24 14:54] LABS: Alcohol,Blood 0.138 gm/dl (<0.010)
[2019-04-24 15:02] LABS: ALT/SGPT 43 U/l (0-40); AST/SGOT 30 U/l (0-37); Albumin 3.4 gm/dL (3.2-5.2); Albumin/Globulin Ratio 1.3 (1.0-2.3); Alkaline Phosphatase 147 U/L (39-117); Bilirubin,Total 0.3 mg/dL (0.0-1.0); Blood Urea Nitrogen 6 mg/dl (8-23); Calcium 9.3 mg/dl (8.6-10.4); Carbon Dioxide 25 mmol/L (22-30); Chloride 83 mmol/L (96-108); Globulin 2.6 gm/dL (2.2-3.7); Glomerular Filtration Rate 127; Glucose 116 mg/dL (70-105); Potassium 5.2 mmol/L (3.3-5.1); Sodium 121 mmol/L (133-145)
[2019-04-24 15:08] LABS: Hematocrit 39.5 % (41.0-55.0); Hemoglobin 13.1 g/dL (13.5-16.5); Mean Cell Volume 94.4 fL (80.0-100.0); Mean Corpuscular HGB Conc 33.3 g/dL (31.0-36.0); Mean Platelet Volume 7.3 fL (7.4-10.4); Platelet Count 657 K/mcL (140-440); RBC 4.18 M/mcL (4.50-5.90); Red Cell Distribution Width 16.2 % (11.5-14.5); WBC 16.7 K/mcL (4.5-11.0)
--- NOTE | 2019-04-24 15:16 | Emergency Department Note ---
SOB HPI - General Chief Complaint: Shortness of Breath/Dyspnea Stated Complaint: SOB Time Seen by Provider: 04/24/19 14:13 Source: patient, family Mode of arrival: wheelchair Limitations: no limitations - History of Present Illness Patient describes difficulty breathing over the past several days. He was discharged from the hospital recently 4 days ago where he was admitted for a COPD exacerbation with hypoxia and hypercapnia. He uses oxygen day and night. He used his nebulizer. He has a chronic indwelling catheter. He is a paraplegic. He states he has been eating and drinking fairly normally. He admits to drinking 8-9 beers yesterday. He has felt no specific sweatiness, fevers, chills. He has felt congestion and coughing up colored phlegm. In triage had a pulse oximeter with a good reading at 57% saturation on oxygen and a temperature of 99.3. He is here to try to feel better. REVIEW OF SYSTEMS: No sore throat but some runny nose. No change in his chronic low-grade wheeziness. Cough is about the same. No nausea or vomiting or diarrhea but some constipation. No hematochezia. Some acid reflux. Sees Dr. Fernandes for his chronic bladder issues. Is wheelchair-bound due to paraplegia due to some sort of neurologic problem, possible spinal stroke, in the last 2 years. No dizziness. No anxiety or depression. - Related Data Home Medications Medication Instructions Recorded Confirmed albuterol 90 mcg/actuation aerosol 2 puff INHALATION QID PRN 04/04/17 04/14/19 inhaler budesonide-formoterol HFA 160 2 inh INHALATION BID 04/04/17 04/14/19 mcg-4.5 mcg/actuation aerosol inhaler carvedilol 3.125 mg tablet 3.125 mg PO BID 04/04/17 04/14/19 cholecalciferol (vitamin D3) 1,000 2,000 unit PO QDAY cap 04/04/17 04/14/19 unit capsule clopidogrel 75 mg tablet 75 mg PO QDAY 04/04/17 04/14/19 guaifenesin ER 600 mg tablet, 600 mg PO BID tab 04/04/17 04/14/19 extended release 12 hr ipratropium-albuterol 0.5 mg-3 3 ml INHALATION QID ml 04/04/17 04/14/19 mg(2.5 mg base)/3 mL nebulization soln losartan 100 mg tablet 100 mg PO QDAY 04/04/17 04/14/19 losartan 50 mg tablet 50 mg PO QDAY 04/04/17 04/14/19 magnesium oxide 420 mg tablet 420 mg PO BID 04/04/17 04/14/19 multivitamin capsule 1 tab-cap PO QDAY 04/04/17 04/14/19 pantoprazole 40 mg tablet,delayed 40 mg PO QAM 04/04/17 04/14/19 release pravastatin 40 mg tablet 40 mg PO QDAY tab 04/04/17 04/14/19 pravastatin 80 mg tablet 80 mg PO QDAY tab 04/04/17 04/14/19 thiamine HCl (vitamin B1) 100 mg 100 mg PO QDAY 04/04/17 04/14/19 tablet vitamin B complex capsule 1 cap PO QDAY 04/04/17 04/14/19 amlodipine 10 mg tablet 10 mg PO QDAY 12/31/18 04/14/19 bisoprolol fumarate 5 mg tablet 5 mg PO QDAY 12/31/18 04/14/19 calcium carbonate-vitamin D3 600 1 cap PO QDAY cap 12/31/18 04/14/19 mg calcium-200 unit capsule cyanocobalamin (vit B-12) 500 mcg 500 mcg PO QDAY 12/31/18 04/14/19 tablet doxycycline monohydrate 100 mg 100 mg PO BID 12/31/18 04/14/19 capsule fluconazole 100 mg tablet 200 mg PO QDAY 12/31/18 04/14/19 food supplement, lactose-reduced each PO TID ml 12/31/18 04/14/19 oral liquid loperamide 2 mg capsule 2 mg PO Q2-4H PRN 12/31/18 04/14/19 melatonin 3 mg tablet 6 mg PO HS PRN tab 12/31/18 04/14/19 omeprazole 20 mg capsule,delayed 20 mg PO BID cap 12/31/18 04/14/19 release pyridoxine (vitamin B6) 50 mg 100 mg PO QDAY cap 12/31/18 04/14/19 capsule sildenafil 100 mg tablet 100 mg PO ONCE 12/31/18 04/14/19 tamsulosin 0.4 mg capsule 0.4 mg PO QDAY 12/31/18 04/14/19 tiotropium bromide 18 mcg capsule 1 cap INHALATION QDAY 12/31/18 04/14/19 with inhalation device minocycline 100 mg capsule 100 mg PO BID 01/01/19 04/14/19 Previous Rx's Medication Instructions Recorded Levofloxacin [Levaquin] 750 mg PO DAILY #2 tab 04/20/19 Sodium Chloride 1 gm PO DAILY #30 tab 04/20/19 predniSONE [Prednisone] 20 mg PO [facility] #1 tab 04/20/19 Allergies Allergy/AdvReac Type Severity Reaction Status Date / Time lisinopril Allergy Severe Anaphylaxis Verified 04/24/19 13:41 Varenicline AdvReac Mild Vomiting Verified 04/24/19 13:41 Past Medical History - Past Medical History [facility] Narrative: Medical History (Last Reviewed 04/14/19 @ 13:57 by Serena Perry RN) Hyponatremia with normal extracellular fluid volume (Acute) Wheelchair bound (Chronic) Decreased sensation of lower extremity (Chronic) Lower extremity weakness (Chronic) Vascular disease (Chronic) Hypertension (Chronic) Bladder distention (Chronic) Pelvic pain in male (Chronic) Paraplegia (Chronic) Retention of urine (Chronic) UTI (urinary tract infection) (Chronic) Contusion of rib on right side (Chronic) Migraine (Chronic) Stroke (Chronic) Bruit (Chronic) Colonic polyp (Chronic) Benign essential hypertension (Chronic) Hyponatremia (Chronic) Lumbago (Chronic) Depressive disorder (Chronic) Hyperlipidemia, unspecified (Chronic) Neuralgia and neuritis, unspecified (Chronic) Migraine, unspecified, not intractable, without status migrainosus (Chronic) Symptoms involving cardiovascular system (Chronic) Reflux esophagitis (Chronic) Esophageal reflux (Chronic) Sensorineural hearing loss (Chronic) Peripheral vascular disease (Chronic) Benign neoplasm of large bowel (Chronic) Disc degeneration, lumbosacral (Chronic) Fracture of metacarpal neck, closed (Chronic) Alcohol dependence in remission (Chronic) Shoulder joint pain (Chronic) Rotator cuff syndrome (Chronic) Abnormal liver function test (Chronic) Alcohol abuse with unspecified alcohol-induced disorder (Chronic) Tobacco use (Chronic) Chronic obstructive pulmonary disease, unspecified (Chronic) Brain stem stroke syndrome (Chronic) Angioneurotic edema, subsequent encounter (Chronic) Edema, unspecified (Chronic) Hypo-osmolality and hyponatremia (Chronic) Other nonspecific abnormal finding of lung field (Chronic) Essential (primary) hypertension (Chronic) Contusion of thorax, unspecified, sequela (Chronic) Collapse of right lung (Chronic) Past Surgical History (Last Reviewed 04/14/19 @ 13:57 by Serena Perry RN) History of sedco-dappf-adjlloq bypass (Chronic) History of appendectomy (Chronic) History of fusion of cervical spine (Chronic) History of hand surgery (Chronic) History of tonsillectomy (Chronic) Family History (Last Reviewed 04/14/19 @ 13:57 by Serena Perry RN) Father Lung cancer Heart attack Throat cancer Mother Breast cancer Sister Breast cancer Grandfather Heart attack Medical history: Reports: COPD, CVA, liver disease, TIA, other (, peripheral vascular disease, recent urinary retention.). Denies: DM, myocardial infarction Psychiatric history: Denies: anxiety, depression Surgical history ED: Reports: angioplasty/stent, appendectomy, vascular surgery - Social History smoking status: Current every day smoker Alcohol use: Reports: Daily, Heavy Drug use: Reports: none. Denies: marijuana Physical Exam Limitations: physical limitation General appearance: anxious, in distress (Hard to breathe and stay awake.), sleepy Head: atraumatic, normocephalic Eye: Present: EOMI ENT: mucous membranes dry Chest: Present: symmetric chest wall rise Respiratory: Present: respiratory distress, rales/crackles, wheezes, stridor, accessory muscle use, prolonged expiratory phase, other (Respiratory rate approximately 30 breaths/min) Cardiovascular: Present: regular rate, normal rhythm. Absent: systolic murmur, diastolic murmur Abdominal: Present: soft, other (Scaphoid). Absent: distention, tenderness, guarding, rebound, rigidity, organomegaly, mass : Present: other (Chronic Sanchez present draining relatively clear medium yellow-colored urine) Extremities: Present: other (Moderate to severe muscle wasting is evident). Absent: pedal edema, pretibial edema, calf tenderness Neurological: Present: alert, oriented X3 Psychiatric: Present: flat affect, serious Skin: Present: warm, cool, other (Multiple purpuric ecchymoses without elevation in the skin of the forearms bilaterally.) Course Vital Signs Temperature 99.3 F H 04/24/19 13:41 Pulse Rate 65 04/24/19 13:41 Respiratory Rate 26 H 04/24/19 13:41 Blood Pressure 135/93 04/24/19 13:41 Pulse Oximetry (%) 57 L 04/24/19 13:41 Temperature 99.3 F H 04/24/19 13:41 Pulse Rate 87 04/24/19 16:50 Respiratory Rate 18 04/24/19 16:50 Blood Pressure 122/71 04/24/19 16:46 Pulse Oximetry (%) 95 04/24/19 16:50 Shortness of Breath/Dyspnea - [facility] Narrative Medical decision making narrative: 1:57 PM - COPD exacerbation and/or pneumonia with rather significant hypoxia. We will do large work-up including blood cultures, x-ray, EKG, multiple labs, nebulizer treatment, ABG, BiPAP. 2:20 PM - ABG not able to be obtained with 2 attempts. Venous blood gas ordered. 2:25 PM approximately - patient refused BiPAP. 3:05 PM - patient indicates that he simply cannot tolerate BiPAP and he had said this earlier. He might be able to tolerate it he says if he had relaxing medication but is not certain. When asking about his no major heroics, he does say that he does not want to . When explaining that his oxygen is low enough that he needs quite a bit more oxygen and the nasal cannula does not deliver quite enough he is willing to keep using his current mask. - Lab Data Lab results reviewed: Yes I reviewed the patient's lab results. Result diagrams: 04/24/19 14:12 04/24/19 14:12 Lab Results 04/24/19 04/24/19 04/24/19 Range/Units 14:12 14:12 14:12 WBC 16.7 H (4.5-11.0) K/mcL RBC 4.18 L (4.50-5.90) M/mcL Hgb 13.1 L (13.5-16.5) g/dL Hct 39.5 L (41.0-55.0) % MCV 94.4 (80.0-100.0) fL MCH 31.4 (26.0-34.0) pg MCHC 33.3 (31.0-36.0) g/dL RDW 16.2 H (11.5-14.5) % Plt Count 657 H (140-440) K/mcL MPV 7.3 L (7.4-10.4) fL Gran % 80.0 H (38.0-78.0) % Lymph % (Auto) 6.0 L (15.5-49.0) % [place] % (Auto) 4.0 (1.0-12.0) % ABG Methemoglobin (0.4-1.5) % VBG pH (7.32-7.42) U VBG pCO2 (41.0-51.0) mmHg VBG pO2 (25-40) mmHg VBG HCO3 (24.0-28.0) mmol/L VBG Total CO2 (25.0-29.0) mmol/L VBG O2 Saturation (40.0-70.0) % VBG Base Excess (-2.0-2.0) VBG Lactic Acid 1.0 (0.5-2.0) mmol/L Carboxyhemoglobin (0.0-1.5) % THgb Total Hemoglobin (13.5-16.5) gm/dL O2 Delivery Level Sodium 121 L (133-145) mmol/L Potassium 5.2 H (3.3-5.1) mmol/L Chloride 83 L (96-108) mmol/L Carbon Dioxide 25 (22-30) mmol/L Anion Gap 13.0 (8-16) BUN 6 L (8-23) mg/dl Creatinine 0.4 L (0.7-1.2) mg/dl GFR Calculation 127 Glucose 116 H (70-105) mg/dL Calcium 9.3 (8.6-10.4) mg/dl Total Bilirubin 0.3 (0.0-1.0) mg/dL AST 30 (0-37) U/l ALT 43 H (0-40) U/l Alkaline Phosphatase 147 H (39-117) U/L NT-Pro-B Natriuret Pep (0-125) pg/ml Total Protein 6.0 (5.9-8.4) gm/dL Albumin 3.4 (3.2-5.2) gm/dL Globulin 2.6 (2.2-3.7) gm/dL Albumin/Globulin Ratio 1.3 (1.0-2.3) Procalcitonin (<0.10) ng/mL Ethyl Alcohol (<0.010) gm/dl 04/24/19 04/24/1919 Range/Units 14:14 14:14 14:16 WBC (4.5-11.0) K/mcL RBC (4.50-5.90) M/mcL Hgb (13.5-16.5) g/dL Hct (41.0-55.0) % MCV (80.0-100.0) fL MCH (26.0-34.0) pg MCHC (31.0-36.0) g/dL RDW (11.5-14.5) % Plt Count (140-440) K/mcL MPV (7.4-10.4) fL Gran % (38.0-78.0) % Lymph % (Auto) (15.5-49.0) % [place] % (Auto) (1.0-12.0) % ABG Methemoglobin (0.4-1.5) % VBG pH (7.32-7.42) U VBG pCO2 (41.0-51.0) mmHg VBG pO2 (25-40) mmHg VBG HCO3 (24.0-28.0) mmol/L VBG Total CO2 (25.0-29.0) mmol/L VBG O2 Saturation (40.0-70.0) % VBG Base Excess (-2.0-2.0) VBG Lactic Acid (0.5-2.0) mmol/L Carboxyhemoglobin (0.0-1.5) % THgb Total Hemoglobin (13.5-16.5) gm/dL O2 Delivery Level Sodium (133-145) mmol/L Potassium (3.3-5.1) mmol/L Chloride (96-108) mmol/L Carbon Dioxide (22-30) mmol/L Anion Gap (8-16) BUN (8-23) mg/dl Creatinine (0.7-1.2) mg/dl GFR Calculation Glucose (70-105) mg/dL Calcium (8.6-10.4) mg/dl Total Bilirubin (0.0-1.0) mg/dL AST (0-37) U/l ALT (0-40) U/l Alkaline Phosphatase (39-117) U/L NT-Pro-B Natriuret Pep 519.4 H (0-125) pg/ml Total Protein (5.9-8.4) gm/dL Albumin (3.2-5.2) gm/dL Globulin (2.2-3.7) gm/dL Albumin/Globulin Ratio (1.0-2.3) Procalcitonin < 0.10 (<0.10) ng/mL Ethyl Alcohol 0.138 H (<0.010) gm/dl 04/24/19 Range/Units 14:26 WBC (4.5-11.0) K/mcL RBC (4.50-5.90) M/mcL Hgb (13.5-16.5) g/dL Hct (41.0-55.0) % MCV (80.0-100.0) fL MCH (26.0-34.0) pg MCHC (31.0-36.0) g/dL RDW (11.5-14.5) % Plt Count (140-440) K/mcL MPV (7.4-10.4) fL Gran % (38.0-78.0) % Lymph % (Auto) (15.5-49.0) % [place] % (Auto) (1.0-12.0) % ABG Methemoglobin 0.3 L (0.4-1.5) % VBG pH 7.39 (7.32-7.42) U VBG pCO2 44.2 (41.0-51.0) mmHg VBG pO2 129 H (25-40) mmHg VBG HCO3 26.3 (24.0-28.0) mmol/L VBG Total CO2 27.6 (25.0-29.0) mmol/L VBG O2 Saturation 91.3 H (40.0-70.0) % VBG Base Excess 1.1 (-2.0-2.0) VBG Lactic Acid (0.5-2.0) mmol/L Carboxyhemoglobin 7.0 H (0.0-1.5) % THgb Total Hemoglobin 11.8 L (13.5-16.5) gm/dL O2 Delivery Level Not Reportable Sodium (133-145) mmol/L Potassium (3.3-5.1) mmol/L Chloride (96-108) mmol/L Carbon Dioxide (22-30) mmol/L Anion Gap (8-16) BUN (8-23) mg/dl Creatinine (0.7-1.2) mg/dl GFR Calculation Glucose (70-105) mg/dL Calcium (8.6-10.4) mg/dl Total Bilirubin (0.0-1.0) mg/dL AST (0-37) U/l ALT (0-40) U/l Alkaline Phosphatase (39-117) U/L NT-Pro-B Natriuret Pep (0-125) pg/ml Total Protein (5.9-8.4) gm/dL Albumin (3.2-5.2) gm/dL Globulin (2.2-3.7) gm/dL Albumin/Globulin Ratio (1.0-2.3) Procalcitonin (<0.10) ng/mL Ethyl Alcohol (<0.010) gm/dl - Radiology Data Radiology results reviewed: Yes I reviewed the patient's radiology results. - EKG Data EKG results narrative: No acute coronary syndrome findings. This ECG will be read by a chargemaster analyst. Disposition Pt seen by ENT NURSE/PA only: No Clinical Impression: Hypoxia, Hyponatremia, Alcoholism, chronic Leukocytosis (leucocytosis) Qualifiers: Leukocytosis type: leukemoid reaction Qualified Code(s): D72.823 - Leukemoid reaction Summary: With elevated temperature (99.3), leukocytosis that is new, and patient's rather significant and severe hypoxia, he needs to be inpatient for additional treatment and intervention although he is DNR by choice and preference and confirmed today. I spoke with Dr. Ashby, who kindly accepts this patient for inpatient following and treatment. Disposition: Xfer As Inpt ([facility]) Referrals: Denice Bernabe ARNP [Primary Care Provider] -
[2019-04-24] MEDS ORDERED: LACTATED RINGERS 1,000 ML IV ONE (15:29)
[2019-04-24] MEDS ORDERED: ALBUTEROL SULFATE 5 MG/ML NEB SOLUTION BOTTLE NEB ONE (15:30)
[2019-04-24] MEDS ORDERED: PIPERACILLIN SODIUM/TAZOBACTAM 3.375 GM in DEXTROSE 5% IN WATER 50 ML IV ONE (16:42)
[2019-04-24] MEDS ORDERED: 0.9 % SODIUM CHLORIDE 1,000 ML IV ONE ×2 (16:43→17:11)
--- NOTE | 2019-04-24 17:34 | Internal Med History&Physical ---
Medical - H&P: HPI Patient information: Note initiated : 04/24/19 at 5:29 pm Service Date, if different from initiated Date: [] Patient: Ankit Gandhi a 63 y/o M admitted on for Shortness of breath. Chief Complaint: [] History of present illness: Mr. Gandhi is a 63 year old M with h/o severe copd, on 3-4 L oxygen at baseline, paraplegic, heavy etoh use, presents to the emergency room today for evaluation of shortness of breath. The patient was discharged from this facility 5 days ago on the of this month. At that time according to the notes patient was breathing fairly well and the patient confirms that. He however notes that he has been short of breath for nearly a week. This afternoon his condition deteriorated suddenly he was very short of breath and therefore he came to the emergency room. He has cough but is unable to bring up any sputum, he denies any chest pain or chest tightness denies any headache dizziness changes in vision or difficulty in swallowing. Denies any fever or chills any abdominal pain, he has not had bowel movements for the last 2 days. He has a chronic indwelling Sanchez catheter does have a history of recurrent urine tract infections. Patient is paraplegic and unable to move his lower extremities according to the family there is some problem with the blood supply to the spinal cord and they have seen an interventional radiologist for same. On presenting to the emergency room patient was significantly hypoxic with oxygen saturation in the 50s, he has a low-grade temperature 91.3. On my evaluation patient was hemodynamically stable heart rate 77 blood pressure 132/71 he was saturating 95% on 8 L of oxygen. Patient's labs show leukocytosis 16.7 hemoglobin 13.1 platelets 657. Sodium is 121 potassium 5.2 bicarbonate 25 creatinine 0.4 alcohol level is 0.138. The patient on my evaluation was tachypneic, on 8 L of oxygen. Blood gas was done which appears to be mixed but is reported as venous pH 7.39 PCO2 44 PO2 was 129 and O2 sat 90%. Patient has declined BiPAP use noting that he is significantly claustrophobic and would not use one. He is also not happy with the oxygen mask that is on right now. He is declined BiPAP in the past. His sister is by the bedside. I explained to him that should his condition worsen would he want us to try some m edications and BiPAP and he declined. The patient actively smokes as well as drinks heavily up to 12 beers a day. I reiterated his overall poor prognosis because of active smoking as well as heavy alcohol use in light of his comorbidities. They verbalized understanding. Patient does wish treatment to relieve his symptoms notes that he does not wish to and would like treatment to help him, he lives by himself with a auto care center manager, who bring him his alcohol Patient is going to be admitted to PCU status All systems: reviewed and no additional remarkable complaints except as stated (as per HPI rest negative) Medical - H&P: H Medical history: Medical History (Last Updated 04/24/19 @ 17:05 by Remberto Dudley DO) Chronic anticoagulation (Chronic) DNR no code (do not resuscitate) (Chronic) Hyponatremia with normal extracellular fluid volume (Acute) Wheelchair bound (Chronic) Decreased sensation of lower extremity (Chronic) Lower extremity weakness (Chronic) Vascular disease (Chronic) Hypertension (Chronic) Bladder distention (Chronic) Pelvic pain in male (Chronic) Paraplegia (Chronic) Retention of urine (Chronic) UTI (urinary tract infection) (Chronic) Contusion of rib on right side (Chronic) Migraine (Chronic) Stroke (Chronic) Bruit (Chronic) Colonic polyp (Chronic) Benign essential hypertension (Chronic) Hyponatremia (Chronic) Lumbago (Chronic) Depressive disorder (Chronic) Hyperlipidemia, unspecified (Chronic) Neuralgia and neuritis, unspecified (Chronic) Migraine, unspecified, not intractable, without status migrainosus (Chronic) Symptoms involving cardiovascular system (Chronic) Reflux esophagitis (Chronic) Esophageal reflux (Chronic) Sensorineural hearing loss (Chronic) Peripheral vascular disease (Chronic) Benign neoplasm of large bowel (Chronic) Disc degeneration, lumbosacral (Chronic) Fracture of metacarpal neck, closed (Chronic) Alcohol dependence in remission (Chronic) Shoulder joint pain (Chronic) Rotator cuff syndrome (Chronic) Abnormal liver function test (Chronic) Alcohol abuse with unspecified alcohol-induced disorder (Chronic) Tobacco use (Chronic) Chronic obstructive pulmonary disease, unspecified (Chronic) Brain stem stroke syndrome (Chronic) Angioneurotic edema, subsequent encounter (Chronic) Edema, unspecified (Chronic) Hypo-osmolality and hyponatremia (Chronic) Other nonspecific abnormal finding of lung field (Chronic) Essential (primary) hypertension (Chronic) Contusion of thorax, unspecified, sequela (Chronic) Collapse of right lung (Chronic) Surgical history: Past Surgical History (Last Reviewed 04/14/19 @ 13:57 by Serena Perry RN) History of [id number] bypass (Chronic) History of appendectomy (Chronic) History of fusion of cervical spine (Chronic) History of hand surgery (Chronic) History of tonsillectomy (Chronic) Pertinent family history: Family History (Last Reviewed 04/14/19 @ 13:57 by Serena Perry RN) Father Lung cancer Heart attack Throat cancer Mother Breast cancer Sister Breast cancer Grandfather Heart attack Medical - H&P: Meds Home Medications Medication Instructions Recorded Confirmed Type albuterol 90 mcg/actuation aerosol 2 puff INHALATION QID PRN 04/04/17 04/14/19 History inhaler budesonide-formoterol HFA 160 2 inh INHALATION BID 04/04/17 04/14/19 History mcg-4.5 mcg/actuation aerosol inhaler carvedilol 3.125 mg tablet 3.125 mg PO BID 04/04/17 04/14/19 History cholecalciferol (vitamin D3) 1,000 2,000 unit PO QDAY cap 04/04/17 04/14/19 History unit capsule clopidogrel 75 mg tablet 75 mg PO QDAY 04/04/17 04/14/19 History guaifenesin ER 600 mg tablet, 600 mg PO BID tab 04/04/17 04/14/19 History extended release 12 hr ipratropium-albuterol 0.5 mg-3 3 ml INHALATION QID ml 04/04/17 04/14/19 History mg(2.5 mg base)/3 mL nebulization soln losartan 100 mg tablet 100 mg PO QDAY 04/04/17 04/14/19 History losartan 50 mg tablet 50 mg PO QDAY 04/04/17 04/14/19 History magnesium oxide 420 mg tablet 420 mg PO BID 04/04/17 04/14/19 History multivitamin capsule 1 tab-cap PO QDAY 04/04/17 04/14/19 History pantoprazole 40 mg tablet,delayed 40 mg PO QAM 04/04/17 04/14/19 History release pravastatin 40 mg tablet 40 mg PO QDAY tab 04/04/17 04/14/19 History pravastatin 80 mg tablet 80 mg PO QDAY tab 04/04/17 04/14/19 History thiamine HCl (vitamin B1) 100 mg 100 mg PO QDAY 04/04/17 04/14/19 History tablet vitamin B complex capsule 1 cap PO QDAY 04/04/17 04/14/19 History amlodipine 10 mg tablet 10 mg PO QDAY 12/31/18 04/14/19 History bisoprolol fumarate 5 mg tablet 5 mg PO QDAY 12/31/18 04/14/19 History calcium carbonate-vitamin D3 600 1 cap PO QDAY cap 12/31/18 04/14/19 History mg calcium-200 unit capsule cyanocobalamin (vit B-12) 500 mcg 500 mcg PO QDAY 12/31/18 04/14/19 History tablet doxycycline monohydrate 100 mg 100 mg PO BID 12/31/18 04/14/19 History capsule fluconazole 100 mg tablet 200 mg PO QDAY 12/31/18 04/14/19 History food supplement, lactose-reduced each PO TID ml 12/31/18 04/14/19 History oral liquid loperamide 2 mg capsule 2 mg PO Q2-4H PRN 12/31/18 04/14/19 History melatonin 3 mg tablet 6 mg PO HS PRN tab 12/31/18 04/14/19 History omeprazole 20 mg capsule,delayed 20 mg PO BID cap 12/31/18 04/14/19 History release pyridoxine (vitamin B6) 50 mg 100 mg PO QDAY cap 12/31/18 04/14/19 History capsule sildenafil 100 mg tablet 100 mg PO ONCE 12/31/18 04/14/19 History tamsulosin 0.4 mg capsule 0.4 mg PO QDAY 12/31/18 04/14/19 History tiotropium bromide 18 mcg capsule 1 cap INHALATION QDAY 12/31/18 04/14/19 History with inhalation device minocycline 100 mg capsule 100 mg PO BID 01/01/19 04/14/19 History Levofloxacin [Levaquin] 750 mg PO DAILY #2 tab 04/20/19 Rx Sodium Chloride 1 gm PO DAILY #30 tab 04/20/19 Rx predniSONE [Prednisone] 20 mg PO QAC #1 tab 04/20/19 Rx Allergies Allergy/AdvReac Type Severity Reaction Status Date / Time lisinopril Allergy Severe Anaphylaxis Verified 04/24/19 13:41 Varenicline AdvReac Mild Vomiting Verified 04/24/19 13:41 Medical - H&P: Exam - Constitutional Vitals: Temp Pulse Resp BP Pulse Ox 99.3 F H 90 18 132/80 97 04/24/19 13:41 04/24/19 17:21 04/24/19 17:21 04/24/19 17:17 04/24/19 17:21 Exam: GENERAL: The patient is a well-developed, frail think individual, in mild respiratory distress. Is alert and oriented x3. VITAL SIGNS: Reviewed and as noted elsewhere. HEENT: Head is normocephalic and atraumatic. Extraocular muscles are intact. Pupils are equal, round, and reactive to light. Nares appeared normal. Mouth appears any without lesions. Mucous membranes are moist. NECK: Normal to inspection, Supple, No lymphadenopathy or thyromegaly. LUNGS: Air entry is reduced on both sides significantly, he has prolonged expiratory phase and mild expiratory wheezing. He is using accessory muscles of respiration however is able to speak a few words at a time. HEART: Regular rate and rhythm normal, S1 and S2 heard, no Gallop, S3 or Rub Noted, No Gross murmur heard. His heart sounds are quite distant ABDOMEN: Soft, nontender, and nondistended. Positive bowel sounds. No hepatosplenomegaly was noted. EXTREMITIES: No cyanosis, clubbing, rash, lesions, he has bilateral lower extremity edema NEUROLOGIC: Cranial nerves II through XII are grossly intact. Unable to move his lower extremities PSYCHIATRIC: Normal affect, Normal Mood. Appropriate Behavior. SKIN: No ulceration or wounds noted, No jaundice, No rash noted. Medical - H&P: Reslt - Labs CBC & Chem 7: 04/24/19 14:12 04/24/19 14:12 Labs: Short CBC 04/24/19 Range/Units 14:12 WBC 16.7 H (4.5-11.0) K/mcL Hgb 13.1 L (13.5-16.5) g/dL Hct 39.5 L (41.0-55.0) % Plt Count 657 H (140-440) K/mcL BMP 04/24/19 14:12 Sodium 121 L Potassium 5.2 H Chloride 83 L Carbon Dioxide 25 BUN 6 L Creatinine 0.4 L Glucose 116 H Calcium 9.3 Liver Function 04/24/19 Range/Units 14:12 Total Bilirubin 0.3 (0.0-1.0) mg/dL AST 30 (0-37) U/l ALT 43 H (0-40) U/l Alkaline Phosphatase 147 H (39-117) U/L Albumin 3.4 (3.2-5.2) gm/dL - ABG Interpretation ABG results: 04/24/19 14:26 ABG Methemoglobin 0.3 L VBG pH 7.39 VBG pCO2 44.2 VBG pO2 129 H VBG HCO3 26.3 VBG Total CO2 27.6 VBG O2 Saturation 91.3 H VBG Base Excess 1.1 Medical - H&P: A/P - Narrative A/P Narrative: A/P Acute on Chr hypoxic respiratory failure -on 8L oxygen at this time via oxymask which is helping, -pt does not wish intubation or bipap -if worsens will see if we can arrange for [employer] oxygen. Acute exacerbation of COPD -on 3-4 L at baseline, -steroids, antibiotics and bronchodilators for now -given bed bound status, recent hospital stay, will r/o PE Malnutrition/Underweight, BMI 12, think frail individual Alcoholism/ alcohol intoxication -12 beers a day, had 9 today -IV thiamine, folic acid, CIWA protocol for now Hyponatremia -give mildly elevated K, will check cortisol level -was evaluated by Nephrology previous admit, noted to be due to Etoh beer potomania and malnutrition. -IV saline and IV lasix for now, monitor sodium levels, pt asymptomatic from low sodium -Dietary consult Paraplegia -will wait for full assesstment for chr wounds Leucocytosis -etiology? UTI? -check ua, send for culture, on zosyn for now, descalate as per sensitivity, HTN/HLD/Depression -resume home meds once verified DVT hep sq DNR code status Poor prognosis Social History - Social History service: Yes - Tobacco smoking status: Current every day smoker quit status: not considering quitting - Tobacco Type tobacco type: cigarettes - Alcohol alcohol intake frequency: 2+ drinks per day - Substance use substance use type: does not use - Additional Social History additional history: 18 Beers a day
[2019-04-24 17:43] LABS: Magnesium 1.8 mg/dL (1.6-2.5); Phosphorous 3.4 mg/dL (2.7-4.5)
[2019-04-24] MEDS ORDERED: FUROSEMIDE 20 MG/2 ML VIAL IV ONE (18:44)
[2019-04-24] MEDS ORDERED: VANCOMYCIN PER PHARMACY IV SCH (18:44)
[2019-04-24] MEDS ORDERED: PROMETHAZINE 25 MG/ML VIAL IV PRN (18:44)
[2019-04-24] MEDS ORDERED: ALBUTEROL SULFATE 2.5 MG/3 ML NEBULIZER NEB PRN (18:44)
[2019-04-24] MEDS ORDERED: AZITHROMYCIN 250 MG TABLET PO ONE (18:44)
[2019-04-24] MEDS ORDERED: NALOXONE HCL 0.4 MG/ML VIAL IV PRN (18:44)
[2019-04-24] MEDS ORDERED: ONDANSETRON 4 MG/2 ML VIAL IV PRN (18:44)
[2019-04-24] MEDS ORDERED: THIAMINE 100 MG in 0.9 % SODIUM CHLORIDE 50 ML IV ONE (18:44)
[2019-04-24] MEDS ORDERED: 0.9 % SODIUM CHLORIDE 1,000 ML IV SCH (18:44)
[2019-04-24] MEDS ORDERED: MAG HYDROX/AL HYDROX/SIMETH 30 ML ORAL.SUSP PO PRN (18:44)
[2019-04-24] MEDS ORDERED: VANCOMYCIN 1,000 MG in 0.9 % SODIUM CHLORIDE 250 ML IV ONE (18:44)
[2019-04-24] MEDS ORDERED: ACETAMINOPHEN 325 MG TABLET PO PRN (18:44)
[2019-04-24] MEDS ORDERED: THIAMINE 100 MG/ML VIAL ONE (19:07)
[2019-04-24] MEDS: LORazepam 2 MG/ML VIAL IV PRN (19:13)
[2019-04-24] MEDS: IPRATROPIUM/ALBUTEROL 3 ML AMPUL.NEB NEB SCH ×2 (19:21→23:24)
[2019-04-24 19:33] LABS: Osmolality,Urine 198 mOsm/kg (80-1000)
[2019-04-24] MEDS: NICOTINE 21 MG PATCH TOPICAL SCH (19:36)
[2019-04-24] MEDS: HEPARIN 5,000 UNIT/ML VIAL SQ SCH (19:36)
[2019-04-24 19:37] LABS: Appearance,Urine CLEAR; Bacteria,Urine 0 /hpf (0); Bilirubin,Urine NEG (NEG); Color,Urine COLORLESS; Glucose,Urine (UA) NEGATIVE (NEG); Ketones,Urine NEG (NEG); Leukocyte Esterase,Urine NEG /uL (NEG); Mucus,Urine FEW /hpf (0); Nitrate,Urine NEG (NEG); Protein,Urine NEG (NEG); Specific Gravity,Urine 1.013 (1.000-1.035); Urine Blood 0.03 mg/dL (<0.03); Urine RBC 1 /hpf (0-1); Urine Squamous Epithelial Cell 0 /hpf (0-4); Urine Transitional Epi Cells < 1 /hpf (0-2); Urine WBC 2 /hpf (0-4); Urobilinogen,Urine NEG (NEG)
[2019-04-24] MEDS: FAMOTIDINE/PF 20 MG/2 ML VIAL IV SCH (19:37)
[2019-04-24 19:40] LABS: Sodium, Urine Random 65 mmol/L
[2019-04-24 19:41] LABS: Amphetamine Screen,Urine NONE DETECTED (NONDETECTED); Barbiturate Screen,Urine NONE DETECTED (NONDETECTED); Benzodiazepines Screen,Urine NONE DETECTED (NONDETECTED); Cannabinoid Screen,Urine NONE DETECTED (NONDETECTED); Cocaine Screen,Urine NONE DETECTED (NONDETECTED); Opiate Screen,Urine NONE DETECTED (NONDETECTED); Oxycodone, Urine Screen NONE DETECTED (NONDETECTED); Phencyclidine Screen,Urine NONE DETECTED (NONDETECTED)
[2019-04-24] MEDS: FOLIC ACID/VITAMIN B COMP W-C 1 TAB TABLET PO SCH (19:41)
[2019-04-24] MEDS: SENNOSIDES 1 TABLET PO SCH (19:44)
[2019-04-24] MEDS ORDERED: VANCOMYCIN 500 MG VIAL ONE (19:58)
[2019-04-24] MEDS: VANCOMYCIN 750 MG in 0.9 % SODIUM CHLORIDE 250 ML IV SCH (20:09)
[2019-04-24 22:19] LABS: Blood Urea Nitrogen 5 mg/dl (8-23); Calcium 8.6 mg/dl (8.6-10.4); Carbon Dioxide 29 mmol/L (22-30); Chloride 93 mmol/L (96-108); Glomerular Filtration Rate 127; Glucose 153 mg/dL (70-105); Potassium 3.9 mmol/L (3.3-5.1); Sodium 130 mmol/L (133-145)
[2019-04-24] MEDS: methylPREDNISolone SOD SUCC 125 MG/2 ML VIAL IV SCH (22:29)
[2019-04-24] MEDS: 0.9 % SODIUM CHLORIDE 10 ML SYRINGE IV SCH (22:30)
[2019-04-24] MEDS ORDERED: DEXTROSE 5% IN WATER 1,000 ML IV SCH (22:30)
[2019-04-25] MEDS: PIPERACILLIN SODIUM/TAZOBACTAM 3.375 GM in DEXTROSE 5% IN WATER 50 ML IV SCH ×4 (00:12→17:38)
[2019-04-25] MEDS: IPRATROPIUM/ALBUTEROL 3 ML AMPUL.NEB NEB SCH ×6 (02:12→23:03)
[2019-04-25] MEDS: LORazepam 2 MG/ML VIAL IV PRN ×3 (02:44→20:52)
[2019-04-25] MEDS: methylPREDNISolone SOD SUCC 125 MG/2 ML VIAL IV SCH ×3 (05:32→22:16)
[2019-04-25] MEDS: 0.9 % SODIUM CHLORIDE 10 ML SYRINGE IV SCH ×3 (05:32→23:35)
[2019-04-25 05:43] LABS: ALT/SGPT 32 U/l (0-40); AST/SGOT 19 U/l (0-37); Albumin 2.7 gm/dL (3.2-5.2); Albumin/Globulin Ratio 0.9 (1.0-2.3); Alkaline Phosphatase 134 U/L (39-117); Bilirubin,Direct < 0.2 mg/dL (0.0-0.3); Bilirubin,Total 0.3 mg/dL (0.0-1.0); Blood Urea Nitrogen 6 mg/dl (8-23); Calcium 8.3 mg/dl (8.6-10.4); Carbon Dioxide 31 mmol/L (22-30); Chloride 93 mmol/L (96-108); Glomerular Filtration Rate 143; Glucose 205 mg/dL (70-105); Lactate Dehydrogenase 213 U/L (94-250); Magnesium 1.8 mg/dL (1.6-2.5); Potassium 3.6 mmol/L (3.3-5.1); Sodium 134 mmol/L (133-145); Triglycerides 64 mg/dl (<150); Uric Acid 2.2 mg/dL (2.5-8.0)
[2019-04-25 06:27] LABS: Hematocrit 35.1 % (41.0-55.0); Hemoglobin 11.6 g/dL (13.5-16.5); Mean Cell Volume 96.4 fL (80.0-100.0); Mean Platelet Volume 7.5 fL (7.4-10.4); Platelet Count 638 K/mcL (140-440); RBC 3.64 M/mcL (4.50-5.90); Red Cell Distribution Width 15.9 % (11.5-14.5); WBC 11.9 K/mcL (4.5-11.0)
--- NOTE | 2019-04-25 08:00 | Cat Scan Report ---
CLINICAL INFORMATION: Chronic cough, COPD, pulmonary embolus COMPARISON: 05/26/18 TECHNIQUE: Axial images obtained through the chest. 60 cc intravenous contrast administration was administered, and scanning was performed during pulmonary arterial phase. Sagittally and coronally reformatted images were obtained. MIP reformatted images. The radiation exposure was limited using dose reduction technology. FINDINGS: The pulmonary arteries are normal with no intraluminal filling defects. There is normal in size and contour. There is a moderate amount of plaque in the coronary arteries and the left side of the heart. Is also plaque formation in normal caliber aorta and there is moderate plaque formation at the origins of the celiac and superior mesenteric arteries. There is also plaque formation at the origins of the renal arteries. Patient has bilateral bronchial pneumonia predominantly involving the lower lobes. This has a patchy distribution. The lucero of the bronchi are thickened and there is some mucous plugging. Milder inflammation is present in the right middle lobe and lingula. There is also low-level inflammation in the right upper lobe. Patient has mild centrilobular emphysema, predominantly involving the upper lobes. In the anterior right apex there is a 5 mm nodule. On the coronal view this has somewhat of a branching pattern. This is more likely benign than malignant but it was not present in 2018. The pneumonia is also a new finding. No pleural effusion is present and there are no abnormally enlarged lymph nodes. There is atrophy of the left kidney. Atrophy is chronic finding. IMPRESSION: No evidence of pulmonary emboli Bilateral pneumonia superimposed upon emphysema Moderate atherosclerosis in the chest and abdomen Nonspecific right upper lobe pulmonary nodule. A follow-up chest CT within one year is recommended. Interpreted and Authenticated by: Michael Mehta 04/25/19
[2019-04-25] MEDS: TIOTROPIUM BROMIDE 18 MCG INHALANT INH SCH (09:00)
[2019-04-25] MEDS: amLODIPine 10 MG TABLET PO SCH (09:00)
[2019-04-25] MEDS: VANCOMYCIN 750 MG in 0.9 % SODIUM CHLORIDE 250 ML IV SCH ×2 (09:00→20:50)
[2019-04-25] MEDS: CLOPIDOGREL 75 MG TABLET PO SCH (09:00)
[2019-04-25] MEDS: THIAMINE 100 MG in 0.9 % SODIUM CHLORIDE 50 ML IV SCH (09:00)
[2019-04-25] MEDS: AZITHROMYCIN 250 MG TABLET PO SCH (09:00)
[2019-04-25] MEDS: HEPARIN 5,000 UNIT/ML VIAL SQ SCH ×2 (09:00→20:52)
[2019-04-25] MEDS: TAMSULOSIN 0.4 MG CAPSULE PO SCH (09:00)
[2019-04-25] MEDS: PANTOPRAZOLE 40 MG TABLET PO SCH ×2 (09:00→16:10)
[2019-04-25] MEDS: LOSARTAN 50 MG TABLET PO SCH (09:00)
--- NOTE | 2019-04-25 09:51 | Internal Med Progress Note ---
Medical - PN: Subj Patient information: Note initiated : 04/25/19 at 9:46 am Service Date, if different from initiated Date: [] Patient: Ankit Gandhi a 63 y/o M admitted on 04/24/19 for Shortness of breath. Chief Complaint: [] Interval history: Mr. Gandhi is a 63 year old M with h/o severe copd, on 3-4 L oxygen at baseline, paraplegic, heavy etoh use, presents to the emergency room today for evaluation of shortness of breath. The patient was discharged from this facility 5 days ago on the of this month. At that time according to the notes patient was breathing fairly well and the patient confirms that. He however notes that he has been short of breath for nearly a week. This afternoon his condition deteriorated suddenly he was very short of breath and therefore he came to the emergency room. He has cough but is unable to bring up any sputum, he denies any chest pain or chest tightness denies any headache dizziness changes in vision or difficulty in swallowing. Denies any fever or chills any abdominal pain, he has not had bowel movements for the last 2 days. He has a chronic indwelling Sanchez catheter does have a history of recurrent urine tract infections. Patient is paraplegic and unable to move his lower extremities according to the family there is some problem with the blood supply to the spinal cord and they have seen an interventional radiologist for same. On presenting to the emergency room patient was significantly hypoxic with oxygen saturation in the 50s, he has a low-grade temperature 91.3. On my evaluation patient was hemodynamically stable heart rate 77 blood pressure 132/71 he was saturating 95% on 8 L of oxygen. Patient's labs show leukocytosis 16.7 hemoglobin 13.1 platelets 657. Sodium is 121 potassium 5.2 bicarbonate 25 creatinine 0.4 alcohol level is 0.138. The patient on my evaluation was tachypneic, on 8 L of oxygen. Blood gas was done which appears to be mixed but is reported as venous pH 7.39 PCO2 44 PO2 was 129 and O2 sat 90%. Patient has declined BiPAP use noting that he is significantly claustrophobic and would not use one. He is also not happy with the oxygen mask that is on right now. He is declined BiPAP in the past. His sister is by the bedside. I explained to him that should his condition worsen would he want us to try some medications and BiPAP and he declined. The patient actively smokes as well as drinks heavily up to 12 beers a day. I reiterated his overall poor prognosis because of active smoking as well as heavy alcohol use in light of his comorbidities. They verbalized understanding. Patient does wish treatment to relieve his symptoms notes that he does not wish to and would like treatment to help him, he lives by himself with a medical care administrator, who bring him his alcohol Patient is going to be admitted to PCU status 04/25 Patient seen and examined, no acute overnight events, his sodium level improved significantly just with IV fluids, 130 last night. Was switched to D5 water however this morning sodium level is still gone up to 133. I am going to increase the rate of D5 water 200 cc and recheck labs this afternoon Patient notes that his breathing is much better. He is presently on high flow nasal cannula oxygen Labs show improved WBC count Chest CT shows bilateral pneumonia, vancomycin was added yesterday Pertinent ROS: Denies headache, dizziness Denies chest pain, palpitations Denies cough, shortness of breath is significantly improved since yesterday Denies abdominal pain, nausea or vomiting. - Constitutional Vitals: Vital Signs Temp Pulse Resp BP Pulse Ox 98.8 F 85 18 139/80 94 04/25/19 08:00 04/25/19 08:16 04/25/19 07:13 04/25/19 08:00 04/25/19 08:16 Period Temp Pulse Resp BP Sys/Hensley Pulse Ox Last 24 Hr 97.3 F-99.3 F 63-96 13-32 94-154/44-93 57-100 Intake and Output 04/24/19 04/25/19 04/25/19 21:59 05:59 13:59 Intake Total 3050 1000 830 Output Total 3609 2056 Balance -560 -1057 830 Weight 108 lb 8 oz Intake & Output: Intake & Output 04/24/19 04/25/19 04/25/19 21:59 05:59 13:59 Intake Total 3050 1000 830 Output Total 3609 2056 Balance -560 -1057 830 Weight 108 lb 8 oz Intake: IV 3050 600 830 Sodium Chloride 0.9% 1,000 ml @ 2000 249 75 mls/hr IV .[id number] [facility] Rx#: [id number] Dextrose 5% in Water 1,000 ml @ 830 75 mls/hr IV .[id number] [facility] Rx#: [id number] Lactated Ringers 1,000 ml @ 1000 Wide Open IV BOLUS ONE Rx#: [id number] Zosyn 3.375 gm In Dextrose 5% 50 50 in Water 50 ml @ 100 mls/hr IV Q6H [facility] Rx#:[id number] Vancomycin 750 mg In Sodium 250 Chloride 0.9% 250 ml @ 250 mls/ hr IV Q12H [facility] Rx#:[id number] Oral 400 Output: Urine Catheter Amount 3609 2056 Other: Urine Appearance Clear Clear Uretheral (Sanchez) Clear Clear Urine Color Pale Pale Uretheral (Sanchez) Pale Straw Urine Odor Normal Exam: Constitutional; Afebrile, cooperative, alert, not in distress. Thin frail individual Respiratory system: Air Entry equal on both sides, mild expiratory wheezing noted no rhonchi. Air entry significantly improved compared to yesterday CVS- Rate rhythm regular, S1,S2 heard, no gallop, no rub. Abdomen- Soft nontender abdomen, no organomegaly, no tenderness, no guarding or rigidity, B[employer]- AOOx3, moving all extremities, no gross focal deficit noted. Medical - PN: Obj Da - Labs CBC & Chem 7: 04/25/19 03:35 04/25/19 03:35 Labs: Abnormal Lab Results 04/25/19 04/25/19 04/24/19 03:35 03:35 21:02 WBC 11.9 H RBC 3.64 L Hgb 11.6 L Hct 35.1 L RDW 15.9 H Plt Count 638 H MPV Gran % 89.0 H Lymph % (Auto) 6.0 L D-Dimer ABG Methemoglobin VBG pO2 VBG O2 Saturation Carboxyhemoglobin Total Hemoglobin Sodium 130 L Potassium Chloride 93 L 93 L Carbon Dioxide 31 H BUN 6 L 5 L Creatinine 0.3 L 0.4 L Glucose 205 H 153 H Uric Acid 2.2 L Calcium 8.3 L GGT 87 H ALT Alkaline Phosphatase 134 H NT-Pro-B Natriuret Pep Total Protein 5.7 L Albumin 2.7 L Albumin/Globulin Ratio 0.9 L Urine Occult Blood Ethyl Alcohol 04/24/19 04/24/19 04/24/19 18:24 14:26 14:16 WBC RBC Hgb Hct RDW Plt Count MPV Gran % Lymph % (Auto) D-Dimer ABG Methemoglobin 0.3 L VBG pO2 129 H VBG O2 Saturation 91.3 H Carboxyhemoglobin 7.0 H Total Hemoglobin 11.8 L Sodium Potassium Chloride Carbon Dioxide BUN Creatinine Glucose Uric Acid Calcium GGT ALT Alkaline Phosphatase NT-Pro-B Natriuret Pep 519.4 H Total Protein Albumin Albumin/Globulin Ratio Urine Occult Blood 0.03 A Ethyl Alcohol 04/24/19 04/24/19 04/24/19 14:14 14:12 14:12 WBC RBC Hgb Hct RDW Plt Count MPV Gran % Lymph % (Auto) D-Dimer 1.63 H ABG Methemoglobin VBG pO2 VBG O2 Saturation Carboxyhemoglobin Total Hemoglobin Sodium 121 L Potassium 5.2 H Chloride 83 L Carbon Dioxide BUN 6 L Creatinine 0.4 L Glucose 116 H Uric Acid Calcium GGT ALT 43 H Alkaline Phosphatase 147 H NT-Pro-B Natriuret Pep Total Protein Albumin Albumin/Globulin Ratio Urine Occult Blood Ethyl Alcohol 0.138 H 04/24/19 14:12 WBC 16.7 H RBC 4.18 L Hgb 13.1 L Hct 39.5 L RDW 16.2 H Plt Count 657 H MPV 7.3 L Gran % 80.0 H Lymph % (Auto) 6.0 L D-Dimer ABG Methemoglobin VBG pO2 VBG O2 Saturation Carboxyhemoglobin Total Hemoglobin Sodium Potassium Chloride Carbon Dioxide BUN Creatinine Glucose Uric Acid Calcium GGT ALT Alkaline Phosphatase NT-Pro-B Natriuret Pep Total Protein Albumin Albumin/Globulin Ratio Urine Occult Blood Ethyl Alcohol Meds: Medications Acetaminophen (Tylenol) 650 mg PO Q4-6HP PRN PRN Reason: PAIN/FEVER > 101 Al Hydrox/Mg Hydrox/Simethicone (Maalox) 30 ml PO Q4-6HP PRN PRN Reason: Dyspepsia Albuterol Sulfate (Ventolin) 2.5 mg NEB Q2HP PRN PRN Reason: Shortness Of Breath Albuterol/Ipratropium (Duoneb) 3 ml NEB Q4HRT [facility] Last Admin: 04/25/19 07:11 Dose: 3 ml Documented by: Amlodipine Besylate (Norvasc) 10 mg PO QDAY [facility] Atorvastatin Calcium (Lipitor) 10 mg PO DAILY [facility] Azithromycin (Zithromax) 250 mg PO DAILY [facility]; Protocol Stop: 04/28/19 09:01 Bisoprolol Fumarate (Zebeta) 5 mg PO QDAY [facility] Calcium/Vitamin D (Calcium W/Vit D3) 500 mg PO BID [facility] Clopidogrel Bisulfate (Plavix) 75 mg PO QDAY [facility] Cyanocobalamin (Vitamin B-12) 500 mcg PO QDAY [facility] Famotidine (Pepcid) 20 mg IV HS [facility] Last Admin: 04/24/19 19:37 Dose: 20 mg Documented by: Heparin Sodium (Porcine) (Heparin) 5,000 unit SQ Q12 [facility] Last Admin: 04/24/19 19:36 Dose: 5,000 unit Documented by: Thiamine HCl 100 mg/ Sodium (Chloride) 51 mls @ 50 mls/hr IV DAILY [facility] Stop: 05/02/19 11:59 Piperacillin Sod/Tazobactam (Sod 3.375 gm/ Dextrose) 50 mls @ 100 mls/hr IV Q6H [facility]; Protocol Last Admin: 04/25/19 05:31 Dose: 100 mls/hr Documented by: Vancomycin HCl 750 mg/ Sodium (Chloride) 250 mls @ 250 mls/hr IV Q12H [facility] Last Infusion: 04/24/19 23:11 Dose: Infused Documented by: Dextrose (Dextrose 5% In Water) 1,000 mls @ 200 mls/hr IV .Q5H [facility] Lorazepam (Ativan) 0 mg IV Q4HP PRN; Protocol PRN Reason: Alcohol Withdrawal Last Admin: 04/25/19 02:44 Dose: 1 mg Documented by: Losartan Potassium (Cozaar) 100 mg PO DAILY [facility] Melatonin (Melatonin 3mg Tablet) 6 mg PO HS [facility] Methylprednisolone Sodium Succinate (Solu-Medrol) 62.5 mg IV Q8 [facility] Last Admin: 04/25/19 05:32 Dose: 62.5 mg Documented by: Multivit/Ca Carb/B Cmplx/FA/Prenat (Diatx) 1 tab PO [facility] Last Admin: 04/24/19 19:41 Dose: 1 tab Documented by: Naloxone HCl (Narcan) 0.1 mg IV Q2MIN PRN PRN Reason: Opiate Reversal Nicotine (Nicoderm) 21 mg TOPICAL DAILY@1000 [facility] Last Admin: 04/24/19 19:36 Dose: 21 mg Documented by: Ondansetron HCl (Zofran) 4 mg IV Q4-6HP PRN PRN Reason: Nausea And Vomiting Pantoprazole Sodium (Protonix) 40 mg PO BIDAC [facility] Budesonide/Formoterol Fumarate [Symbicort 160-4.5 Mcg Inhaler] 1 dose INH BID SAL Promethazine HCl (Phenergan) 12.5 mg IV Q4-6HP PRN PRN Reason: Nausea And Vomiting Last Admin: 04/25/19 02:45 Dose: 12.5 mg Documented by: Pyridoxine HCl (Vitamin B-6) 100 mg PO DAILY [facility] Senna (Senokot) 2 tab PO HS [facility] Last Admin: 04/24/19 19:44 Dose: 2 tab Documented by: Sodium Chloride (Saline Flush) 10 ml IV Q8 [facility] Last Admin: 04/25/19 05:32 Dose: 10 ml Documented by: Tamsulosin HCl (Flomax) 0.4 mg PO QDAY SAL Tiotropium [place] (Spiriva) 18 mcg INH QDAY SAL Vancomycin HCl (Vancomycin Per Pharmacy) 1 order IV UD [facility]; Protocol - ABG Interpretation ABG results: 04/24/19 14:26 ABG Methemoglobin 0.3 L VBG pH 7.39 VBG pCO2 44.2 VBG pO2 129 H VBG HCO3 26.3 VBG Total CO2 27.6 VBG O2 Saturation 91.3 H VBG Base Excess 1.1 Medical - PN: A/P - Time Spent With Patient Total time spent is greater than 50% in coordination of care (as documented) at patient's floor/unit and/or counseling patient: - Narrative A/P Narrative: A/P Acute on Chr hypoxic respiratory failure -on [place] oxygen via NC, 40L at this time, -pt does not wish intubation or bipap Acute exacerbation of COPD -on 3-4 L at baseline, -steroids, antibiotics and bronchodilators for now, improving clinically with improved air entry -CT neg for PE but did show [facility] Associated pneumonia -IV vanc and zosyn for now -will follow cultures Malnutrition/Underweight, BMI 12, think frail individual Alcoholism/ alcohol intoxication -12 beers a day, had 9 today -IV thiamine, folic acid, CIWA protocol for now Hyponatremia -give mildly elevated K, will check cortisol level -was evaluated by Nephrology previous admit, noted to be due to Etoh beer potomania and malnutrition. -IV saline and IV lasix for now, monitor sodium levels, pt asymptomatic from low sodium -Dietary consult Paraplegia -will wait for full assessment for chr wounds/wound consult HTN/HLD/Depression -resumed home meds as appropriate DVT hep sq DNR code status Poor prognosis
[2019-04-25] MEDS: NICOTINE 21 MG PATCH TOPICAL SCH (10:00)
[2019-04-25] MEDS: DEXTROSE 5% IN WATER 1,000 ML IV SCH ×5 (12:22→23:35)
[2019-04-25 12:27] LABS: Blood Urea Nitrogen 8 mg/dl (8-23); Calcium 8.5 mg/dl (8.6-10.4); Carbon Dioxide 29 mmol/L (22-30); Chloride 91 mmol/L (96-108); Glomerular Filtration Rate 143; Glucose 248 mg/dL (70-105); Potassium 3.6 mmol/L (3.3-5.1); Sodium 130 mmol/L (133-145)
[2019-04-25] MEDS: PYRIDOXINE 100 MG TABLET PO SCH (12:27)
[2019-04-25] MEDS: CALCIUM W/VIT D3 500 MG TABLET PO SCH ×2 (12:27→20:50)
[2019-04-25] MEDS: CYANOCOBALAMIN (VITAMIN B-12) 500 MCG TABLET PO SCH (12:27)
[2019-04-25] MEDS: BISOPROLOL 5 MG TABLET PO SCH (12:27)
[2019-04-25] MEDS: ATORVASTATIN 20 MG TABLET PO SCH (12:27)
[2019-04-25] MEDS ORDERED: FLEETS ADULT ENEMA PR PRN (18:35)
[2019-04-25] MEDS ORDERED: BISACODYL 10 MG SUPP.RECT PR PRN (18:35)
[2019-04-25] MEDS ORDERED: MAGNESIUM HYDROXIDE 30 ML ORAL.SUSP PO PRN (18:35)
[2019-04-25 20:19] LABS: Blood Urea Nitrogen 7 mg/dl (8-23); Calcium 8.8 mg/dl (8.6-10.4); Carbon Dioxide 30 mmol/L (22-30); Chloride 90 mmol/L (96-108); Glomerular Filtration Rate 127; Glucose 185 mg/dL (70-105); Potassium 3.3 mmol/L (3.3-5.1); Sodium 130 mmol/L (133-145)
[2019-04-25] MEDS ORDERED: POTASSIUM CHLORIDE 40 MEQ in DEXTROSE 5% IN WATER 500 ML IV ONE (20:27)
[2019-04-25] MEDS: DOCUSATE SODIUM 100 MG CAPSULE PO SCH (20:50)
[2019-04-25] MEDS: FOLIC ACID/VITAMIN B COMP W-C 1 TAB TABLET PO SCH (20:50)
[2019-04-25] MEDS: SENNOSIDES 1 TABLET PO SCH (20:51)
[2019-04-25] MEDS: FAMOTIDINE/PF 20 MG/2 ML VIAL IV SCH (20:51)
[2019-04-25] MEDS ORDERED: MELATONIN 3 MG TABLET PO SCH (21:00)
[2019-04-25] MEDS ORDERED: POTASSIUM CHLORIDE 20 MEQ/10 ML VIAL IV ONE (22:08)
[2019-04-26] MEDS: PIPERACILLIN SODIUM/TAZOBACTAM 3.375 GM in DEXTROSE 5% IN WATER 50 ML IV SCH ×6 (00:07→23:15)
[2019-04-26] MEDS: IPRATROPIUM/ALBUTEROL 3 ML AMPUL.NEB NEB SCH ×6 (02:39→22:44)
[2019-04-26] MEDS: DEXTROSE 5% IN WATER 1,000 ML IV SCH (02:40)
[2019-04-26] MEDS: LORazepam 2 MG/ML VIAL IV PRN ×2 (03:36→18:36)
[2019-04-26] MEDS: methylPREDNISolone SOD SUCC 125 MG/2 ML VIAL IV SCH ×3 (05:28→22:38)
[2019-04-26] MEDS: 0.9 % SODIUM CHLORIDE 10 ML SYRINGE IV SCH ×3 (05:28→20:55)
[2019-04-26 05:46] LABS: ALT/SGPT 24 U/l (0-40); AST/SGOT 16 U/l (0-37); Albumin 2.6 gm/dL (3.2-5.2); Alkaline Phosphatase 104 U/L (39-117); Bilirubin,Direct < 0.2 mg/dL (0.0-0.3); Bilirubin,Total 0.2 mg/dL (0.0-1.0); Blood Urea Nitrogen 5 mg/dl (8-23); Calcium 8.7 mg/dl (8.6-10.4); Carbon Dioxide 29 mmol/L (22-30); Chloride 96 mmol/L (96-108); Globulin 2.7 gm/dL (2.2-3.7); Glomerular Filtration Rate 127; Glucose 245 mg/dL (70-105); Lactate Dehydrogenase 152 U/L (94-250); Magnesium 1.8 mg/dL (1.6-2.5); Phosphorous 1.2 mg/dL (2.7-4.5); Potassium 3.3 mmol/L (3.3-5.1); Sodium 134 mmol/L (133-145); Triglycerides 70 mg/dl (<150); Uric Acid 1.3 mg/dL (2.5-8.0)
[2019-04-26 06:33] LABS: Hematocrit 33.3 % (41.0-55.0); Hemoglobin 10.9 g/dL (13.5-16.5); Mean Cell Volume 96.8 fL (80.0-100.0); Mean Corpuscular HGB Conc 32.7 g/dL (31.0-36.0); Mean Platelet Volume 7.3 fL (7.4-10.4); Platelet Count 633 K/mcL (140-440); RBC 3.44 M/mcL (4.50-5.90); Red Cell Distribution Width 16.9 % (11.5-14.5); WBC 17.8 K/mcL (4.5-11.0)
[2019-04-26] MEDS: PANTOPRAZOLE 40 MG TABLET PO SCH ×2 (07:48→17:00)
[2019-04-26] MEDS ORDERED: POTASSIUM PHOSPHATE 40 MEQ in DEXTROSE 5% IN WATER 500 ML IV ONE (08:00)
[2019-04-26] MEDS: HEPARIN 5,000 UNIT/ML VIAL SQ SCH ×2 (08:21→19:35)
[2019-04-26] MEDS: amLODIPine 10 MG TABLET PO SCH (08:22)
[2019-04-26] MEDS: DOCUSATE SODIUM 100 MG CAPSULE PO SCH ×2 (08:22→19:35)
[2019-04-26] MEDS: AZITHROMYCIN 250 MG TABLET PO SCH (08:22)
[2019-04-26] MEDS: LOSARTAN 50 MG TABLET PO SCH (08:22)
[2019-04-26] MEDS: CLOPIDOGREL 75 MG TABLET PO SCH (08:23)
[2019-04-26] MEDS: CALCIUM W/VIT D3 500 MG TABLET PO SCH ×2 (08:34→19:36)
[2019-04-26] MEDS: ATORVASTATIN 20 MG TABLET PO SCH (08:34)
[2019-04-26] MEDS: BISOPROLOL 5 MG TABLET PO SCH (08:35)
[2019-04-26] MEDS: TAMSULOSIN 0.4 MG CAPSULE PO SCH (08:35)
[2019-04-26] MEDS: CYANOCOBALAMIN (VITAMIN B-12) 500 MCG TABLET PO SCH (08:35)
[2019-04-26] MEDS: PYRIDOXINE 100 MG TABLET PO SCH (08:35)
--- NOTE | 2019-04-26 09:14 | Internal Med Progress Note ---
Medical - PN: Subj Patient information: Note initiated : 04/26/19 at 9:12 am Service Date, if different from initiated Date: [] Patient: Ankit Gandhi a 63 y/o M admitted on 04/24/19 for Shortness of breath. Chief Complaint: [] Interval history: Mr. Gandhi is a 63 year old M with h/o severe copd, on 3-4 L oxygen at baseline, paraplegic, heavy etoh use, presents to the emergency room today for evaluation of shortness of breath. The patient was discharged from this facility 5 days ago on the of this month. At that time according to the notes patient was breathing fairly well and the patient confirms that. He however notes that he has been short of breath for nearly a week. This afternoon his condition deteriorated suddenly he was very short of breath and therefore he came to the emergency room. He has cough but is unable to bring up any sputum, he denies any chest pain or chest tightness denies any headache dizziness changes in vision or difficulty in swallowing. Denies any fever or chills any abdominal pain, he has not had bowel movements for the last 2 days. He has a chronic indwelling Sanchez catheter does have a history of recurrent urine tract infections. Patient is paraplegic and unable to move his lower extremities according to the family there is some problem with the blood supply to the spinal cord and they have seen an interventional radiologist for same. On presenting to the emergency room patient was significantly hypoxic with oxygen saturation in the 50s, he has a low-grade temperature 91.3. On my evaluation patient was hemodynamically stable heart rate 77 blood pressure 132/71 he was saturating 95% on 8 L of oxygen. Patient's labs show leukocytosis 16.7 hemoglobin 13.1 platelets 657. Sodium is 121 potassium 5.2 bicarbonate 25 creatinine 0.4 alcohol level is 0.138. The patient on my evaluation was tachypneic, on 8 L of oxygen. Blood gas was done which appears to be mixed but is reported as venous pH 7.39 PCO2 44 PO2 was 129 and O2 sat 90%. Patient has declined BiPAP use noting that he is significantly claustrophobic and would not use one. He is also not happy with the oxygen mask that is on right now. He is declined BiPAP in the past. His sister is by the bedside. I explained to him that should his condition worsen would he want us to try some medications and BiPAP and he declined. The patient actively smokes as well as drinks heavily up to 12 beers a day. I reiterated his overall poor prognosis because of active smoking as well as heavy alcohol use in light of his comorbidities. They verbalized understanding. Patient does wish treatment to relieve his symptoms notes that he does not wish to and would like treatment to help him, he lives by himself with a healthcare or medical, who bring him his alcohol Patient is going to be admitted to PCU status 04/25 Patient seen and examined, no acute overnight events, his sodium level improved significantly just with IV fluids, 130 last night. Was switched to D5 water however this morning sodium level is still gone up to 133. I am going to increase the rate of D5 water 200 cc and recheck labs this afternoon Patient notes that his breathing is much better. He is presently on high flow nasal cannula oxygen Labs show improved WBC count Chest CT shows bilateral pneumonia, vancomycin was added yesterday 04/26 Patient seen and examined, no acute overnight events. Weaned down to 3 L of oxy gen now. Hemodynamically stable, clinically has shown signs of improvement. WBC has worsened but could be secondary to steroids Cultures are negative so far. Patient is responding to antibiotic treatment. Transfer to [facility] status. Sodium level is 134. Discontinue D5 water now Pertinent ROS: Denies headache, dizziness Denies chest pain, palpitations Cough and shortness of breath significantly improved Denies abdominal pain, nausea or vomiting. - Constitutional Vitals: Vital Signs Temp Pulse Resp BP Pulse Ox 98.3 F 85 25 H 136/83 91 04/26/19 08:01 04/26/19 08:01 04/26/19 08:44 04/26/19 08:01 04/26/19 08:01 Period Temp Pulse Resp BP Sys/Hensley Pulse Ox Last 24 Hr 97.4 F-99 F 64-87 15-25 110-167/63-100 90-100 Intake and Output 04/25/19 04/26/19 04/26/19 21:59 05:59 13:59 Intake Total 1720 1870 360 Output Total 5030 1980 1110 Balance -3310 -110 -750 Weight 109 lb 12.8 oz Intake & Output: Intake & Output 04/25/19 04/26/19 04/26/19 21:59 05:59 13:59 Intake Total 1720 1870 360 Output Total 5030 1979 1110 Balance -3310 -110 -750 Weight 109 lb 12.8 oz Intake: IV 1000 1870 Dextrose 5% in Water 1,000 ml @ 1000 150 mls/hr IV .Q6H40M [facility] Rx#: [id number] Zosyn 3.375 gm In Dextrose 5% 100 in Water 50 ml @ 100 mls/hr IV Q6H [facility] Rx#:[id number] Potassium Chloride 40 Meq In 520 Dextrose 5% in Water 500 ml @ 130 mls/hr IV ONCE ONE Rx#: [id number] Vancomycin 750 mg In Sodium 250 Chloride 0.9% 250 ml @ 250 mls/ hr IV Q12H [facility] Rx#:[id number] Oral 720 360 Output: Urine Catheter Amount 4180 1979 1110 Void Amount 850 Other: Urine Appearance Clear Clear Uretheral (Sanchez) Clear Clear Urine Color Pale Pale Uretheral (Sanchez) Pale Pale Urine Odor Normal Uretheral (Sanchez) Normal Exam: Constitutional; Afebrile, cooperative, alert, not in distress. Respiratory system: Air Entry equal on both sides, air entry improved since admission. Prolonged expiratory phase persistent however improved since yesterday no audible wheezes today CVS- Rate rhythm regular, S1,S2 heard, no gallop, no rub. 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 Medical - PN: Obj Da - Labs CBC & Chem 7: 04/26/19 03:34 04/26/19 03:34 Labs: Abnormal Lab Results 04/26/19 04/26/19 04/25/19 03:34 03:34 18:20 WBC 17.8 H RBC 3.44 L Hgb 10.9 L Hct 33.3 L RDW 16.9 H Plt Count 633 H MPV 7.3 L Gran % 93.0 H Lymph % (Auto) 3.0 L D-Dimer ABG Methemoglobin VBG pO2 VBG O2 Saturation Carboxyhemoglobin Total Hemoglobin Sodium 130 L Potassium Chloride 90 L Carbon Dioxide BUN 5 L 7 L Creatinine 0.4 L 0.4 L Glucose 245 H 185 H Uric Acid 1.3 L Calcium Phosphorus 1.2 L GGT 75 H ALT Alkaline Phosphatase NT-Pro-B Natriuret Pep Total Protein 5.3 L Albumin 2.6 L Albumin/Globulin Ratio Urine Occult Blood Ethyl Alcohol 04/25/19 04/25/19 04/25/19 11:15 03:35 03:35 WBC 11.9 H RBC 3.64 L Hgb 11.6 L Hct 35.1 L RDW 15.9 H Plt Count 638 H MPV Gran % 89.0 H Lymph % (Auto) 6.0 L D-Dimer ABG Methemoglobin VBG pO2 VBG O2 Saturation Carboxyhemoglobin Total Hemoglobin Sodium 130 L Potassium Chloride 91 L 93 L Carbon Dioxide 31 H BUN 6 L Creatinine 0.3 L 0.3 L Glucose 248 H 205 H Uric Acid 2.2 L Calcium 8.5 L 8.3 L Phosphorus GGT 87 H ALT Alkaline Phosphatase 134 H NT-Pro-B Natriuret Pep Total Protein 5.7 L Albumin 2.7 L Albumin/Globulin Ratio 0.9 L Urine Occult Blood Ethyl Alcohol 04/24/19 04/24/19 04/24/19 21:02 18:24 14:26 WBC RBC Hgb Hct RDW Plt Count MPV Gran % Lymph % (Auto) D-Dimer ABG Methemoglobin 0.3 L VBG pO2 129 H VBG O2 Saturation 91.3 H Carboxyhemoglobin 7.0 H Total Hemoglobin 11.8 L Sodium 130 L Potassium Chloride 93 L Carbon Dioxide BUN 5 L Creatinine 0.4 L Glucose 153 H Uric Acid Calcium Phosphorus GGT ALT Alkaline Phosphatase NT-Pro-B Natriuret Pep Total Protein Albumin Albumin/Globulin Ratio Urine Occult Blood 0.03 A Ethyl Alcohol 04/24/19 04/24/19 04/24/19 14:16 14:14 14:12 WBC RBC Hgb Hct RDW Plt Count MPV Gran % Lymph % (Auto) D-Dimer 1.63 H ABG Methemoglobin VBG pO2 VBG O2 Saturation Carboxyhemoglobin Total Hemoglobin Sodium Potassium Chloride Carbon Dioxide BUN Creatinine Glucose Uric Acid Calcium Phosphorus GGT ALT Alkaline Phosphatase NT-Pro-B Natriuret Pep 519.4 H Total Protein Albumin Albumin/Globulin Ratio Urine Occult Blood Ethyl Alcohol 0.138 H 04/24/19 04/24/19 14:12 14:12 WBC 16.7 H RBC 4.18 L Hgb 13.1 L Hct 39.5 L RDW 16.2 H Plt Count 657 H MPV 7.3 L Gran % 80.0 H Lymph % (Auto) 6.0 L D-Dimer ABG Methemoglobin VBG pO2 VBG O2 Saturation Carboxyhemoglobin Total Hemoglobin Sodium 121 L Potassium 5.2 H Chloride 83 L Carbon Dioxide BUN 6 L Creatinine 0.4 L Glucose 116 H Uric Acid Calcium Phosphorus GGT ALT 43 H Alkaline Phosphatase 147 H NT-Pro-B Natriuret Pep Total Protein Albumin Albumin/Globulin Ratio Urine Occult Blood Ethyl Alcohol Meds: Medications Acetaminophen (Tylenol) 650 mg PO Q4-6HP PRN PRN Reason: PAIN/FEVER > 101 Last Admin: 04/25/19 20:51 Dose: 650 mg Documented by: Al Hydrox/Mg Hydrox/Simethicone (Maalox) 30 ml PO Q4-6HP PRN PRN Reason: Dyspepsia Albuterol Sulfate (Ventolin) 2.5 mg NEB Q2HP PRN PRN Reason: Shortness Of Breath Albuterol/Ipratropium (Duoneb) 3 ml NEB Q4HRT [facility] Last Admin: 04/26/19 07:07 Dose: 3 ml Documented by: Amlodipine Besylate (Norvasc) 10 mg PO QDAY [facility] Last Admin: 04/26/19 08:22 Dose: 10 mg Documented by: Atorvastatin Calcium (Lipitor) 10 mg PO DAILY [facility] Last Admin: 04/26/19 08:34 Dose: 10 mg Documented by: Azithromycin (Zithromax) 250 mg PO DAILY [facility]; Protocol Stop: 04/28/19 09:01 Last Admin: 04/26/19 08:22 Dose: 250 mg Documented by: Bisacodyl (Dulcolax) 10 mg FL Q2-3DAYS PRN PRN Reason: Constipation Bisoprolol Fumarate (Zebeta) 5 mg PO QDAY [facility] Last Admin: 04/26/19 08:35 Dose: 5 mg Documented by: Calcium/Vitamin D (Calcium W/Vit D3) 500 mg PO BID [facility] Last Admin: 04/26/19 08:34 Dose: 500 mg Documented by: Clopidogrel Bisulfate (Plavix) 75 mg PO QDAY [facility] Last Admin: 04/26/19 08:23 Dose: 75 mg Documented by: Cyanocobalamin (Vitamin B-12) 500 mcg PO QDAY [facility] Last Admin: 04/26/19 08:35 Dose: 500 mcg Documented by: Docusate Sodium (Colace) 100 mg PO BID [facility] Last Admin: 04/26/19 08:22 Dose: 100 mg Documented by: Famotidine (Pepcid) [address] [facility] Last Admin: 04/25/19 20:51 Dose: 20 mg Documented by: Heparin Sodium (Porcine) (Heparin) 5,000 unit SQ Q12 [facility] Last Admin: 04/26/19 08:21 Dose: 5,000 unit Documented by: Thiamine HCl 100 mg/ Sodium (Chloride) 51 mls @ 50 mls/hr IV DAILY [facility] Stop: 05/02/19 11:59 Last Infusion: 04/25/19 10:10 Dose: Infused Documented by: Piperacillin Sod/Tazobactam (Sod 3.375 gm/ Dextrose) 50 mls @ 100 mls/hr IV Q6H [facility]; Protocol Last Admin: 04/26/19 05:29 Dose: 100 mls/hr Documented by: Vancomycin HCl 750 mg/ Sodium (Chloride) 250 mls @ 250 mls/hr IV Q12H [facility] Last Infusion: 04/26/19 02:40 Dose: Infused Documented by: Potassium Phosphate 40 meq/ (Dextrose) 509.0909 mls @ 127.273 mls/hr IV ONCE ONE Stop: 04/26/19 11:59 Last Admin: 04/26/19 08:43 Dose: 127.273 mls/hr Documented by: Lorazepam (Ativan) 0 mg IV Q4HP PRN; Protocol PRN Reason: Alcohol Withdrawal Last Admin: 04/26/19 03:36 Dose: 2 mg Documented by: Losartan Potassium (Cozaar) 100 mg PO DAILY [facility] Last Admin: 04/26/19 08:22 Dose: 100 mg Documented by: Magnesium Hydroxide (Milk Of Magnesia) 30 ml PO DAILYP PRN PRN Reason: Constipation Melatonin (Melatonin 3mg Tablet) [address] [facility] Last Admin: 04/25/19 20:50 Dose: 6 mg Documented by: Methylprednisolone Sodium Succinate (Solu-Medrol) 62.5 mg IV Q8 [facility] Last Admin: 04/26/19 05:28 Dose: 62.5 mg Documented by: Multivit/Ca Carb/B Cmplx/FA/Prenat (Diatx) [address] [facility] Last Admin: 04/25/19 20:50 Dose: 1 tab Documented by: Naloxone HCl (Narcan) 0.1 mg IV Q2MIN PRN PRN Reason: Opiate Reversal Nicotine (Nicoderm) 21 mg TOPICAL DAILY@1000 [facility] Last Admin: 04/25/19 10:00 Dose: 21 mg Documented by: Ondansetron HCl (Zofran) 4 mg IV Q4-6HP PRN PRN Reason: Nausea And Vomiting Pantoprazole Sodium (Protonix) 40 mg PO BIDAC [facility] Last Admin: 04/26/19 07:48 Dose: 40 mg Documented by: Budesonide/Formoterol Fumarate [Symbicort 160-4.5 Mcg Inhaler] 1 dose INH BID [facility] Last Admin: 04/25/19 21:55 Dose: Not Given Documented by: Promethazine HCl (Phenergan) 12.5 mg IV Q4-6HP PRN PRN Reason: Nausea And Vomiting Last Admin: 04/25/19 02:45 Dose: 12.5 mg Documented by: Pyridoxine HCl (Vitamin B-6) 100 mg PO DAILY [facility] Last Admin: 04/26/19 08:35 Dose: 100 mg Documented by: Senna (Senokot) 2 tab PO HS [facility] Last Admin: 04/25/19 20:51 Dose: 2 tab Documented by: Sodium Biphosphate/Sodium Phosphate (Fleets Adult) 1 dose FL Q3-4DAYS PRN PRN Reason: Constipation Sodium Chloride (Saline Flush) 10 ml IV Q8 [facility] Last Admin: 04/26/19 05:28 Dose: 10 ml Documented by: Tamsulosin HCl (Flomax) 0.4 mg PO QDAY [facility] Last Admin: 04/26/19 08:35 Dose: 0.4 mg Documented by: Tiotropium [place] (Spiriva) 18 mcg INH QDAY [facility] Last Admin: 04/25/19 09:00 Dose: Not Given Documented by: Vancomycin HCl (Vancomycin Per Pharmacy) 1 order IV UD [facility]; Protocol - ABG Interpretation ABG results: 04/24/19 14:26 ABG Methemoglobin 0.3 L VBG pH 7.39 VBG pCO2 44.2 VBG pO2 129 H VBG HCO3 26.3 VBG Total CO2 27.6 VBG O2 Saturation 91.3 H VBG Base Excess 1.1 Medical - PN: A/P - Time Spent With Patient Total time spent is greater than 50% in coordination of care (as documented) at patient's floor/unit and/or counseling patient: - Narrative A/P Narrative: A/P Acute on Chr hypoxic respiratory failure -on 3 L of oxygen via nasal cannula which is his home oxygen need Acute exacerbation of COPD -on 3-4 L at baseline, -steroids, antibiotics and bronchodilators for now, improving clinically with improved air entry -CT neg for PE but did show pna Healthcare Associated pneumonia -IV vanc and zosyn for now -will follow cultures negative growth so far Malnutrition/Underweight, BMI 12, think frail individual Alcoholism/ alcohol intoxication -12 beers a day, had 9 today -IV thiamine, folic acid, CIWA protocol for now, patient does not have significant signs of withdrawal Hyponatremia -Due to beer portal renée, and malnutrition. -Sodium is 134, I believe the sodium will remain stable paraplegia -will wait for full assessment for chr wounds/wound consult HTN/HLD/Depression -resumed home meds as appropriate DVT hep sq DNR code status Poor prognosis given etoh, tobacco abuse, poor functional status, and high risk for readmissions
[2019-04-26] MEDS: VANCOMYCIN 750 MG in 0.9 % SODIUM CHLORIDE 250 ML IV SCH ×2 (11:34→20:54)
[2019-04-26] MEDS ORDERED: MAG HYDROX/AL HYDROX/SIMETH 30 ML ORAL.SUSP PO PRN (12:38)
[2019-04-26] MEDS ORDERED: MAGNESIUM HYDROXIDE 30 ML ORAL.SUSP PO PRN (12:38)
[2019-04-26] MEDS ORDERED: NALOXONE HCL 0.4 MG/ML VIAL IV PRN (12:38)
[2019-04-26] MEDS ORDERED: ALBUTEROL SULFATE 2.5 MG/3 ML NEBULIZER NEB PRN (12:38)
[2019-04-26] MEDS ORDERED: ACETAMINOPHEN 325 MG TABLET PO PRN (12:38)
[2019-04-26] MEDS ORDERED: ONDANSETRON 4 MG/2 ML VIAL IV PRN (12:38)
[2019-04-26] MEDS ORDERED: PROMETHAZINE 25 MG/ML VIAL IV PRN (12:38)
[2019-04-26] MEDS ORDERED: FLEETS ADULT ENEMA PR PRN (12:38)
[2019-04-26] MEDS ORDERED: BISACODYL 10 MG SUPP.RECT PR PRN (12:38)
[2019-04-26] MEDS ORDERED: VANCOMYCIN PER PHARMACY IV SCH (12:38)
[2019-04-26] MEDS: FAMOTIDINE 20 MG TABLET PO SCH (19:35)
[2019-04-26] MEDS: FOLIC ACID/VITAMIN B COMP W-C 1 TAB TABLET PO SCH (19:35)
[2019-04-26] MEDS: SENNOSIDES 1 TABLET PO SCH (19:36)
[2019-04-26] MEDS: MELATONIN 3 MG TABLET PO SCH (19:36)
[2019-04-26] MEDS ORDERED: OLANZapine 10 MG VIAL IM SCH (19:45)
[2019-04-26] MEDS ORDERED: OLANZapine 10 MG VIAL IM ONE (19:47)
[2019-04-26] MEDS: THIAMINE 100 MG in 0.9 % SODIUM CHLORIDE 50 ML IV SCH (20:50)
[2019-04-26] MEDS: NICOTINE 21 MG PATCH TOPICAL SCH (20:52)
[2019-04-26] MEDS: TIOTROPIUM BROMIDE 18 MCG INHALANT INH SCH (20:52)
[2019-04-27] MEDS: IPRATROPIUM/ALBUTEROL 3 ML AMPUL.NEB NEB SCH ×6 (02:50→22:53)
[2019-04-27] MEDS: PIPERACILLIN SODIUM/TAZOBACTAM 3.375 GM in DEXTROSE 5% IN WATER 50 ML IV SCH ×3 (05:10→18:12)
[2019-04-27] MEDS: 0.9 % SODIUM CHLORIDE 10 ML SYRINGE IV SCH ×2 (05:11→15:22)
[2019-04-27 05:24] LABS: ALT/SGPT 34 U/l (0-40); AST/SGOT 24 U/l (0-37); Albumin 2.6 gm/dL (3.2-5.2); Albumin/Globulin Ratio 0.9 (1.0-2.3); Alkaline Phosphatase 123 U/L (39-117); Bilirubin,Direct < 0.2 mg/dL (0.0-0.3); Bilirubin,Total 0.3 mg/dL (0.0-1.0); Blood Urea Nitrogen 6 mg/dl (8-23); Carbon Dioxide 29 mmol/L (22-30); Chloride 98 mmol/L (96-108); Globulin 2.9 gm/dL (2.2-3.7); Glomerular Filtration Rate 127; Glucose 134 mg/dL (70-105); Lactate Dehydrogenase 208 U/L (94-250); Magnesium 1.9 mg/dL (1.6-2.5); Phosphorous 1.8 mg/dL (2.7-4.5); Potassium 3.4 mmol/L (3.3-5.1); Sodium 136 mmol/L (133-145); Triglycerides 98 mg/dl (<150); Uric Acid 1.3 mg/dL (2.5-8.0)
[2019-04-27 05:40] LABS: Hematocrit 34.2 % (41.0-55.0); Hemoglobin 11.1 g/dL (13.5-16.5); Mean Cell Volume 95.9 fL (80.0-100.0); Mean Corpuscular HGB Conc 32.4 g/dL (31.0-36.0); Mean Platelet Volume 6.8 fL (7.4-10.4); Platelet Count 691 K/mcL (140-440); RBC 3.56 M/mcL (4.50-5.90); WBC 21.2 K/mcL (4.5-11.0)
[2019-04-27] MEDS: methylPREDNISolone SOD SUCC 125 MG/2 ML VIAL IV SCH (05:44)
[2019-04-27] MEDS: PANTOPRAZOLE 40 MG TABLET PO SCH ×2 (07:51→18:13)
[2019-04-27] MEDS ORDERED: THIAMINE 100 MG in 0.9 % SODIUM CHLORIDE 50 ML IV SCH (09:00)
[2019-04-27] MEDS ORDERED: amLODIPine 10 MG TABLET PO SCH (09:00)
[2019-04-27] MEDS: CALCIUM W/VIT D3 500 MG TABLET PO SCH ×2 (09:57→21:19)
[2019-04-27] MEDS: CYANOCOBALAMIN (VITAMIN B-12) 500 MCG TABLET PO SCH (09:57)
[2019-04-27] MEDS: CLOPIDOGREL 75 MG TABLET PO SCH (09:58)
[2019-04-27] MEDS: AZITHROMYCIN 250 MG TABLET PO SCH (09:58)
[2019-04-27] MEDS: PYRIDOXINE 100 MG TABLET PO SCH (09:58)
[2019-04-27] MEDS: ATORVASTATIN 20 MG TABLET PO SCH (09:58)
[2019-04-27] MEDS: VANCOMYCIN 750 MG in 0.9 % SODIUM CHLORIDE 250 ML IV SCH ×2 (09:59→21:11)
[2019-04-27] MEDS: LOSARTAN 50 MG TABLET PO SCH (09:59)
[2019-04-27] MEDS: TAMSULOSIN 0.4 MG CAPSULE PO SCH (09:59)
[2019-04-27] MEDS: BISOPROLOL 5 MG TABLET PO SCH (09:59)
[2019-04-27] MEDS: THIAMINE 100 MG TABLET PO SCH (09:59)
[2019-04-27] MEDS: HEPARIN 5,000 UNIT/ML VIAL SQ SCH ×2 (10:00→21:24)
[2019-04-27] MEDS: DOCUSATE SODIUM 100 MG CAPSULE PO SCH ×2 (10:00→21:19)
--- NOTE | 2019-04-27 10:41 | Internal Med Progress Note ---
Medical - PN: Subj Patient information: Note initiated : 04/27/19 at 10:37 am Service Date, if different from initiated Date: [] Patient: Ankit Gandhi a 63 y/o M admitted on 04/24/19 for Shortness of breath. Chief Complaint: [] Interval history: Mr. Gandhi is a 63 year old M with h/o severe copd, on 3-4 L oxygen at baseline, paraplegic, heavy etoh use, presents to the emergency room today for evaluation of shortness of breath. The patient was discharged from this facility 5 days ago on the of this month. At that time according to the notes patient was breathing fairly well and the patient confirms that. He however notes that he has been short of breath for nearly a week. This afternoon his condition deteriorated suddenly he was very short of breath and therefore he came to the emergency room. He has cough but is unable to bring up any sputum, he denies any chest pain or chest tightness denies any headache dizziness changes in vision or difficulty in swallowing. Denies any fever or chills any abdominal pain, he has not had bowel movements for the last 2 days. He has a chronic indwelling Sanchez catheter does have a history of recurrent urine tract infections. Patient is paraplegic and unable to move his lower extremities according to the family there is some problem with the blood supply to the spinal cord and they have seen an interventional radiologist for same. On presenting to the emergency room patient was significantly hypoxic with oxygen saturation in the 50s, he has a low-grade temperature 91.3. On my evaluation patient was hemodynamically stable heart rate 77 blood pressure 132/71 he was saturating 95% on 8 L of oxygen. Patient's labs show leukocytosis 16.7 hemoglobin 13.1 platelets 657. Sodium is 121 potassium 5.2 bicarbonate 25 creatinine 0.4 alcohol level is 0.138. The patient on my evaluation was tachypneic, on 8 L of oxygen. Blood gas was done which appears to be mixed but is reported as venous pH 7.39 PCO2 44 PO2 was 129 and O2 sat 90%. Patient has declined BiPAP use noting that he is significantly claustrophobic and would not use one. He is also not happy with the oxygen mask that is on right now. He is declined BiPAP in the past. His sister is by the bedside. I explained to him that should his condition worsen would he want us to try some medications and BiPAP and he declined. The patient actively smokes as well as drinks heavily up to 12 beers a day. I reiterated his overall poor prognosis because of active smoking as well as heavy alcohol use in light of his comorbidities. They verbalized understanding. Patient does wish treatment to relieve his symptoms notes that he does not wish to and would like treatment to help him, he lives by himself with a campground caretaker, who bring him his alcohol Patient is going to be admitted to PCU status 04/25 Patient seen and examined, no acute overnight events, his sodium level improved significantly just with IV fluids, 130 last night. Was switched to D5 water however this morning sodium level is still gone up to 133. I am going to increase the rate of D5 water 200 cc and recheck labs this afternoon Patient notes that his breathing is much better. He is presently on high flow nasal cannula oxygen Labs show improved WBC count Chest CT shows bilateral pneumonia, vancomycin was added yesterday 04/26 Patient seen and examined, no acute overnight events. Weaned down to 3 L of ox ygen now. Hemodynamically stable, clinically has shown signs of improvement. WBC has worsened but could be secondary to steroids Cultures are negative so far. Patient is responding to antibiotic treatment. Transfer to [facility] status. Sodium level is 134. Discontinue D5 water now 04/27 Pt seen examined, no acute issues, still has cough and shortness of breath, but improved since admission. He is very anxious to go home. After long discussion it seems that he still has a desire to drink alcohol. Given the fact that his WBC count is trending up today, procalcitonin is 0.18 I believe it would be prudent for him to stay in the hospital for further monitoring and continuation of IV antibiotic therapy. The patient is willing to stay and I have offered an beer with meals. Pertinent ROS: Denies headache, dizziness Denies chest pain, palpitations Cough present shortness of breath better Denies abdominal pain, nausea or vomiting. - Constitutional Vitals: Vital Signs Temp Pulse Resp BP Pulse Ox 98.4 F 70 20 124/77 90 04/27/19 06:48 04/27/19 07:13 04/27/19 07:13 04/27/19 06:48 04/27/19 07:13 Period Temp Pulse Resp BP Sys/Hensley Pulse Ox Last 24 Hr 97.6 F-98.5 F 70-93 16-24 104-124/59-77 88-94 Intake and Output 04/26/19 04/27/19 04/27/19 21:59 05:59 13:59 Intake Total 2360 50 Output Total 2049 155 Balance 310 -1500 Weight 110 lb 8 oz Intake & Output: Intake & Output 04/26/19 04/27/19 04/27/19 21:59 05:59 13:59 Intake Total 2360 50 Output Total 2049 155 Balance 310 -1500 Weight 110 lb 8 oz Intake: IV 1300 50 Zosyn 3.375 gm In Dextrose 5% 50 50 in Water 50 ml @ 100 mls/hr IV Q6H SAL Rx#:[id number] Vancomycin 750 mg In Sodium 250 Chloride 0.9% 250 ml @ 250 mls/ hr IV Q12H SAL Rx#:[id number] Oral 1060 Output: Urine Catheter Amount 2049 1549 Other: Urine Appearance Clear Clear Uretheral (Sanchez) Clear Urine Color Dark Yellow Bright Yellow Urine Odor Normal Exam: Constitutional; Afebrile, cooperative, alert, not in distress. Respiratory system: Air Entry equal on both sides, No crackles or wheezing, no rhonchi. (improved air entry and resp status from yesterday) CVS- Rate rhythm regular, S1,S2 heard, no gallop, no rub. Abdomen- Soft nontender abdomen, no organomegaly, no tenderness, no guarding or rigidity, TOW FEEDER- AOOx3, Medical - PN: Obj Da - Labs CBC & Chem 7: 04/27/19 04:15 04/27/19 04:15 Labs: Abnormal Lab Results 04/27/19 04/27/19 04/26/19 04:15 04:15 03:34 WBC 21.2 H RBC 3.56 L Hgb 11.1 L Hct 34.2 L RDW 17.0 H Plt Count 691 H MPV 6.8 L Gran % 96.0 H Lymph % (Auto) 1.0 L D-Dimer ABG Methemoglobin VBG pO2 VBG O2 Saturation Carboxyhemoglobin Total Hemoglobin Sodium Potassium Chloride Carbon Dioxide BUN 6 L 5 L Creatinine 0.4 L 0.4 L Glucose 134 H 245 H Uric Acid 1.3 L 1.3 L Calcium Phosphorus 1.8 L 1.2 L GGT 78 H 75 H ALT Alkaline Phosphatase 123 H NT-Pro-B Natriuret Pep Total Protein 5.5 L 5.3 L Albumin 2.6 L 2.6 L Albumin/Globulin Ratio 0.9 L Urine Occult Blood Ethyl Alcohol 04/26/19 04/25/19 04/25/19 03:34 18:20 11:15 WBC 17.8 H RBC 3.44 L Hgb 10.9 L Hct 33.3 L RDW 16.9 H Plt Count 633 H MPV 7.3 L Gran % 93.0 H Lymph % (Auto) 3.0 L D-Dimer ABG Methemoglobin VBG pO2 VBG O2 Saturation Carboxyhemoglobin Total Hemoglobin Sodium 130 L 130 L Potassium Chloride 90 L 91 L Carbon Dioxide BUN 7 L Creatinine 0.4 L 0.3 L Glucose 185 H 248 H Uric Acid Calcium 8.5 L Phosphorus GGT ALT Alkaline Phosphatase NT-Pro-B Natriuret Pep Total Protein Albumin Albumin/Globulin Ratio Urine Occult Blood Ethyl Alcohol 04/25/19 04/25/19 04/24/19 03:35 03:35 21:02 WBC 11.9 H RBC 3.64 L Hgb 11.6 L Hct 35.1 L RDW 15.9 H Plt Count 638 H MPV Gran % 89.0 H Lymph % (Auto) 6.0 L D-Dimer ABG Methemoglobin VBG pO2 VBG O2 Saturation Carboxyhemoglobin Total Hemoglobin Sodium 130 L Potassium Chloride 93 L 93 L Carbon Dioxide 31 H BUN 6 L 5 L Creatinine 0.3 L 0.4 L Glucose 205 H 153 H Uric Acid 2.2 L Calcium 8.3 L Phosphorus GGT 87 H ALT Alkaline Phosphatase 134 H NT-Pro-B Natriuret Pep Total Protein 5.7 L Albumin 2.7 L Albumin/Globulin Ratio 0.9 L Urine Occult Blood Ethyl Alcohol 04/24/19 04/24/19 04/24/19 18:24 14:26 14:16 WBC RBC Hgb Hct RDW Plt Count MPV Gran % Lymph % (Auto) D-Dimer ABG Methemoglobin 0.3 L VBG pO2 129 H VBG O2 Saturation 91.3 H Carboxyhemoglobin 7.0 H Total Hemoglobin 11.8 L Sodium Potassium Chloride Carbon Dioxide BUN Creatinine Glucose Uric Acid Calcium Phosphorus GGT ALT Alkaline Phosphatase NT-Pro-B Natriuret Pep 519.4 H Total Protein Albumin Albumin/Globulin Ratio Urine Occult Blood 0.03 A Ethyl Alcohol 04/24/19 04/24/19 04/24/19 14:14 14:12 14:12 WBC RBC Hgb Hct RDW Plt Count MPV Gran % Lymph % (Auto) D-Dimer 1.63 H ABG Methemoglobin VBG pO2 VBG O2 Saturation Carboxyhemoglobin Total Hemoglobin Sodium 121 L Potassium 5.2 H Chloride 83 L Carbon Dioxide BUN 6 L Creatinine 0.4 L Glucose 116 H Uric Acid Calcium Phosphorus GGT ALT 43 H Alkaline Phosphatase 147 H NT-Pro-B Natriuret Pep Total Protein Albumin Albumin/Globulin Ratio Urine Occult Blood Ethyl Alcohol 0.138 H 04/24/19 14:12 WBC 16.7 H RBC 4.18 L Hgb 13.1 L Hct 39.5 L RDW 16.2 H Plt Count 657 H MPV 7.3 L Gran % 80.0 H Lymph % (Auto) 6.0 L D-Dimer ABG Methemoglobin VBG pO2 VBG O2 Saturation Carboxyhemoglobin Total Hemoglobin Sodium Potassium Chloride Carbon Dioxide BUN Creatinine Glucose Uric Acid Calcium Phosphorus GGT ALT Alkaline Phosphatase NT-Pro-B Natriuret Pep Total Protein Albumin Albumin/Globulin Ratio Urine Occult Blood Ethyl Alcohol Meds: Medications Acetaminophen (Tylenol) 650 mg PO Q4-6HP PRN PRN Reason: PAIN/FEVER > 101 Al Hydrox/Mg Hydrox/Simethicone (Maalox) 30 ml PO Q4-6HP PRN PRN Reason: Dyspepsia Albuterol Sulfate (Ventolin) 2.5 mg NEB Q2HP PRN PRN Reason: Shortness Of Breath Albuterol/Ipratropium (Duoneb) 3 ml NEB Q4HRT [facility] Last Admin: 04/27/19 06:55 Dose: 3 ml Documented by: Amlodipine Besylate (Norvasc) 10 mg PO QDAY [facility] Last Admin: 04/27/19 09:59 Dose: 10 mg Documented by: Atorvastatin Calcium (Lipitor) 10 mg PO DAILY [facility] Last Admin: 04/27/19 09:58 Dose: 10 mg Documented by: Azithromycin (Zithromax) 250 mg PO DAILY [facility]; Protocol Stop: 04/28/19 09:01 Last Admin: 04/27/19 09:58 Dose: 250 mg Documented by: Bisacodyl (Dulcolax) 10 mg MO Q2-3DAYS PRN PRN Reason: Constipation Bisoprolol Fumarate (Zebeta) 5 mg PO QDAY [facility] Last Admin: 04/27/19 09:59 Dose: 5 mg Documented by: Calcium/Vitamin D (Calcium W/Vit D3) 500 mg PO BID [facility] Last Admin: 04/27/19 09:57 Dose: 500 mg Documented by: Clopidogrel Bisulfate (Plavix) 75 mg PO QDAY [facility] Last Admin: 04/27/19 09:58 Dose: 75 mg Documented by: Cyanocobalamin (Vitamin B-12) 500 mcg PO QDAY [facility] Last Admin: 04/27/19 09:57 Dose: 500 mcg Documented by: Docusate Sodium (Colace) 100 mg PO BID [facility] Last Admin: 04/27/19 10:00 Dose: 100 mg Documented by: Famotidine (Pepcid) 20 mg PO [facility] Last Admin: 04/26/19 19:35 Dose: 20 mg Documented by: Heparin Sodium (Porcine) (Heparin) 5,000 unit SQ Q12 [facility] Last Admin: 04/27/19 10:00 Dose: 5,000 unit Documented by: Piperacillin Sod/Tazobactam (Sod 3.375 gm/ Dextrose) 50 mls @ 100 mls/hr IV Q6H [facility]; Protocol Last Admin: 04/27/19 05:10 Dose: 100 mls/hr Documented by: Vancomycin HCl 750 mg/ Sodium (Chloride) 250 mls @ 250 mls/hr IV Q12H [facility] Last Admin: 04/27/19 09:59 Dose: 250 mls/hr Documented by: Lorazepam (Ativan) 0 mg IV Q4HP PRN; Protocol PRN Reason: Alcohol Withdrawal Last Admin: 04/26/19 18:36 Dose: 3 mg Documented by: Losartan Potassium (Cozaar) 100 mg PO DAILY [facility] Last Admin: 04/27/19 09:59 Dose: 100 mg Documented by: Magnesium Hydroxide (Milk Of Magnesia) 30 ml PO DAILYP PRN PRN Reason: Constipation Melatonin (Melatonin 3mg Tablet) 6 mg PO [facility] Last Admin: 04/26/19 19:36 Dose: 6 mg Documented by: Methylprednisolone Sodium Succinate (Solu-Medrol) 62.5 mg IV Q8 [facility] Last Admin: 04/27/19 05:44 Dose: 62.5 mg Documented by: Multivit/Ca Carb/B Cmplx/FA/Prenat (Diatx) 1 tab PO [facility] Last Admin: 04/26/19 19:35 Dose: 1 tab Documented by: Naloxone HCl (Narcan) 0.1 mg IV Q2MIN PRN PRN Reason: Opiate Reversal Nicotine (Nicoderm) 21 mg TOPICAL DAILY@1000 SAL Ondansetron HCl (Zofran) 4 mg IV Q4-6HP PRN PRN Reason: Nausea And Vomiting Pantoprazole Sodium (Protonix) 40 mg PO BIDAC [facility] Last Admin: 04/27/19 07:51 Dose: 40 mg Documented by: Budesonide/Formoterol Fumarate [Symbicort 160-4.5 Mcg Inhaler] 1 dose INH BID [facility] Last Admin: 04/26/19 19:36 Dose: Not Given Documented by: Promethazine HCl (Phenergan) 12.5 mg IV Q4-6HP PRN PRN Reason: Nausea And Vomiting Pyridoxine HCl (Vitamin B-6) 100 mg PO DAILY [facility] Last Admin: 04/27/19 09:58 Dose: 100 mg Documented by: Kareen (Senokot) 2 tab PO [facility] Last Admin: 04/26/19 19:36 Dose: 2 tab Documented by: Sodium Biphosphate/Sodium Phosphate (Fleets Adult) 1 dose MO Q3-4DAYS PRN PRN Reason: Constipation Sodium Chloride (Saline Flush) 10 ml IV Q8 [facility] Last Admin: 04/27/19 05:11 Dose: 10 ml Documented by: Tamsulosin HCl (Flomax) 0.4 mg PO QDAY [facility] Last Admin: 04/27/19 09:59 Dose: 0.4 mg Documented by: Thiamine HCl (Vitamin B1) 100 mg PO DAILY [facility] Stop: 05/02/19 11:59 Last Admin: 04/27/19 09:59 Dose: 100 mg Documented by: Tiotropium [place] (Spiriva) 18 mcg INH QDAY [facility] Vancomycin HCl (Vancomycin Per Pharmacy) 1 order IV UD [facility]; Protocol - ABG Interpretation ABG results: 04/24/19 14:26 ABG Methemoglobin 0.3 L VBG pH 7.39 VBG pCO2 44.2 VBG pO2 129 H VBG HCO3 26.3 VBG Total CO2 27.6 VBG O2 Saturation 91.3 H VBG Base Excess 1.1 Medical - PN: A/P - Time Spent With Patient Total time spent is greater than 50% in coordination of care (as documented) at patient's floor/unit and/or counseling patient: - Narrative A/P Narrative: A/P Acute on Chr hypoxic respiratory failure -on 3 L of oxygen via nasal cannula which is his home oxygen need Acute exacerbation of COPD -on 3-4 L at baseline, wheezing resolved. -steroids(switch from IV to po steroids) , antibiotics and bronchodilators to continue -CT neg for PE but did show pna Healthcare Associated pneumonia -IV vanc and zosyn for now -will follow cultures negative growth so far -WBC trending up, procalcitonin also up, will monitor, -Repeat X ray chest to see if any complication from pna, effusion? Malnutrition/Underweight, BMI 12, think frail individual Alcoholism/ alcohol intoxication -12 beers a day, had 9 today -PO thiamine, folic acid, CIWA protocol for now, patient does not have significant signs of withdrawal -Has no desire to quit, will start beer with meals for now, to help with his cravings. 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 -sodium is normal. paraplegia -will wait for full assessment for chr wounds/wound consult HTN/HLD/Depression -resumed home meds as appropriate Anxiety -related to beer craving, does not wish to be in hospital, beer with meals and ativan should help. DVT hep sq DNR code status Poor prognosis given etoh, tobacco abuse, poor functional status, and high risk for readmissions
--- NOTE | 2019-04-27 11:23 | XRay Report ---
INDICATION: Follow-up pneumonia TECHNIQUE: AP chest x-ray,portable upright COMPARISON: Chest x-rays dated 04/15/2019 and 04/24/2019. Chest CT scan dated 04/24/2019 FINDINGS:There is COPD with bilateral hyperexpansion. Chest CT scan demonstrating centrilobular edema. There are bilateral infiltrates with bibasilar predominance. There are multiple small nodules. Findings are nonspecific. Appearance is consistent with inflammatory disease. Atypical pneumonia should be considered. Miliary disease including tuberculosis are possible. Clinical correlation and follow-up radiograph is recommended. Infiltrates appear slightly worse than on 04/24/2019. Heart size and vascularity within normal limits. Denise and mediastinum are negative. There is no pleural effusion. IMPRESSION: 1. COPD 2. Abdominal a nodular type infiltrate at both lung bases consistent with pneumonia. Findings are slightly worse than on 04/24/2019 Interpreted and Authenticated by: Cristi Jennings 04/27/19
[2019-04-27] MEDS: LORazepam 2 MG/ML VIAL IV PRN (12:47)
--- NOTE | 2019-04-27 13:30 | Internal Med Progress Note ---
Medical - PN: Subj Patient information: Note initiated : 04/27/19 at 1:08 pm Service Date, if different from initiated Date: [] Patient: Ankit Gandhi a 63 y/o M admitted on 04/24/19 for Shortness of breath. Chief Complaint: [] Interval history: Mr. Gandhi is a 63 year old M with h/o severe copd, on 3-4 L oxygen at baseline, paraplegic, heavy etoh use, presents to the emergency room today for evaluation of shortness of breath. The patient was discharged from this facility 5 days ago on the of this month. At that time according to the notes patient was breathing fairly well and the patient confirms that. He however notes that he has been short of breath for nearly a week. This afternoon his condition deteriorated suddenly he was very short of breath and therefore he came to the emergency room. He has cough but is unable to bring up any sputum, he denies any chest pain or chest tightness denies any headache dizziness changes in vision or difficulty in swallowing. Denies any fever or chills any abdominal pain, he has not had bowel movements for the last 2 days. He has a chronic indwelling Sanchez catheter does have a history of recurrent urine tract infections. Patient is paraplegic and unable to move his lower extremities according to the family there is some problem with the blood supply to the spinal cord and they have seen an interventional radiologist for same. On presenting to the emergency room patient was significantly hypoxic with oxygen saturation in the 50s, he has a low-grade temperature 91.3. On my evaluation patient was hemodynamically stable heart rate 77 blood pressure 132/71 he was saturating 95% on 8 L of oxygen. Patient's labs show leukocytosis 16.7 hemoglobin 13.1 platelets 657. Sodium is 121 potassium 5.2 bicarbonate 25 creatinine 0.4 alcohol level is 0.138. The patient on my evaluation was tachypneic, on 8 L of oxygen. Blood gas was done which appears to be mixed but is reported as venous pH 7.39 PCO2 44 PO2 was 129 and O2 sat 90%. Patient has declined BiPAP use noting that he is significantly claustrophobic and would not use one. He is also not happy with the oxygen mask that is on right now. He is declined BiPAP in the past. His sister is by the bedside. I explained to him that should his condition worsen would he want us to try some medications and BiPAP and he declined. The patient actively smokes as well as drinks heavily up to 12 beers a day. I reiterated his overall poor prognosis because of active smoking as well as heavy alcohol use in light of his comorbidities. They verbalized understanding. Patient does wish treatment to relieve his symptoms notes that he does not wish to and would like treatment to help him, he lives by himself with a long term care phlebotomist, who bring him his alcohol Patient is going to be admitted to PCU status 04/25 Patient seen and examined, no acute overnight events, his sodium level improved significantly just with IV fluids, 130 last night. Was switched to D5 water however this morning sodium level is still gone up to 133. I am going to increase the rate of D5 water 200 cc and recheck labs this afternoon Patient notes that his breathing is much better. He is presently on high flow nasal cannula oxygen Labs show improved WBC count Chest CT shows bilateral pneumonia, vancomycin was added yesterday 04/26 Patient seen and examined, no acute overnight events. Weaned down to 3 L of ox ygen now. Hemodynamically stable, clinically has shown signs of improvement. WBC has worsened but could be secondary to steroids Cultures are negative so far. Patient is responding to antibiotic treatment. Transfer to [facility] status. Sodium level is 134. Discontinue D5 water now 04/27 Pt seen examined, no acute issues, still has cough and shortness of breath, but improved since admission. He is very anxious to go home. After long discussion it seems that he still has a desire to drink alcohol. Given the fact that his WBC count is trending up today, procalcitonin is 0.18 I believe it would be prudent for him to stay in the hospital for further monitoring and continuation of IV antibiotic therapy. The patient is willing to stay and I have offered an beer with meals. 04/28 - Constitutional Vitals: Vital Signs Temp Pulse Resp BP Pulse Ox 99.2 F H 77 16 101/64 90 04/27/19 12:00 04/27/19 12:30 04/27/19 12:30 04/27/19 12:00 04/27/19 12:00 Period Temp Pulse Resp BP Sys/Hensley Pulse Ox Last 24 Hr 97.6 F-99.2 F 70-93 16- 101-124/59-77 88-94 Intake and Output 04/26/19 04/27/19 04/27/19 21:59 05:59 13:59 Intake Total 2360 100 940 Output Total 2049 155 1150 Balance 310 -1450 -210 Weight 50.122 kg Intake & Output: Intake & Output 04/26/19 04/27/19 04/27/19 21:59 05:59 13:59 Intake Total 2360 100 940 Output Total 2049 155 1150 Balance 310 -1450 -210 Weight 50.122 kg Intake: IV 1300 100 Zosyn 3.375 gm In Dextrose 5% 50 100 in Water 50 ml @ 100 mls/hr IV Q6H SAL Rx#:[id number] Vancomycin 750 mg In Sodium 250 Chloride 0.9% 250 ml @ 250 mls/ hr IV Q12H SAL Rx#:[id number] Oral 1060 940 Output: Urine Catheter Amount 2049 1549 1150 Other: Meal Breakfast Percent of Meal Consumed 25% Feeding Ability Assist with Tray Set Up Urine Appearance Clear Clear Clear Uretheral (Sanchez) Clear Urine Color Dark Yellow Bright Yellow Pale Urine Odor Normal Exam: General: Alert, Awake, No acute Distress, cachectic Eyes/N/T: EOMI, Head/Neck: neck supple, CV: RRR, No murmurs, Pulm: Diminished bilaterally, no wheezing Abd: soft, nontender, +BS x4 Ext: no clubbing/cyanosis/edema Neuro: Alert, paraplegic lower extremities previous condition Skin: warm/dry Medical - PN: Obj Da - Labs CBC & Chem 7: 04/27/19 04:15 04/27/19 04:15 Labs: Abnormal Lab Results 04/27/19 04/27/19 04/26/19 04:15 04:15 03:34 WBC 21.2 H RBC 3.56 L Hgb 11.1 L Hct 34.2 L RDW 17.0 H Plt Count 691 H MPV 6.8 L Gran % 96.0 H Lymph % (Auto) 1.0 L D-Dimer ABG Methemoglobin VBG pO2 VBG O2 Saturation Carboxyhemoglobin Total Hemoglobin Sodium Potassium Chloride Carbon Dioxide BUN 6 L 5 L Creatinine 0.4 L 0.4 L Glucose 134 H 245 H Uric Acid 1.3 L 1.3 L Calcium Phosphorus 1.8 L 1.2 L GGT 78 H 75 H ALT Alkaline Phosphatase 123 H NT-Pro-B Natriuret Pep Total Protein 5.5 L 5.3 L Albumin 2.6 L 2.6 L Albumin/Globulin Ratio 0.9 L Urine Occult Blood Ethyl Alcohol 04/26/19 04/25/19 04/25/19 03:34 18:20 11:15 WBC 17.8 H RBC 3.44 L Hgb 10.9 L Hct 33.3 L RDW 16.9 H Plt Count 633 H MPV 7.3 L Gran % 93.0 H Lymph % (Auto) 3.0 L D-Dimer ABG Methemoglobin VBG pO2 VBG O2 Saturation Carboxyhemoglobin Total Hemoglobin Sodium 130 L 130 L Potassium Chloride 90 L 91 L Carbon Dioxide BUN 7 L Creatinine 0.4 L 0.3 L Glucose 185 H 248 H Uric Acid Calcium 8.5 L Phosphorus GGT ALT Alkaline Phosphatase NT-Pro-B Natriuret Pep Total Protein Albumin Albumin/Globulin Ratio Urine Occult Blood Ethyl Alcohol 04/25/19 04/25/19 04/24/19 03:35 03:35 21:02 WBC 11.9 H RBC 3.64 L Hgb 11.6 L Hct 35.1 L RDW 15.9 H Plt Count 638 H MPV Gran % 89.0 H Lymph % (Auto) 6.0 L D-Dimer ABG Methemoglobin VBG pO2 VBG O2 Saturation Carboxyhemoglobin Total Hemoglobin Sodium 130 L Potassium Chloride 93 L 93 L Carbon Dioxide 31 H BUN 6 L 5 L Creatinine 0.3 L 0.4 L Glucose 205 H 153 H Uric Acid 2.2 L Calcium 8.3 L Phosphorus GGT 87 H ALT Alkaline Phosphatase 134 H NT-Pro-B Natriuret Pep Total Protein 5.7 L Albumin 2.7 L Albumin/Globulin Ratio 0.9 L Urine Occult Blood Ethyl Alcohol 04/24/19 04/24/19 04/24/19 18:24 14:26 14:16 WBC RBC Hgb Hct RDW Plt Count MPV Gran % Lymph % (Auto) D-Dimer ABG Methemoglobin 0.3 L VBG pO2 129 H VBG O2 Saturation 91.3 H Carboxyhemoglobin 7.0 H Total Hemoglobin 11.8 L Sodium Potassium Chloride Carbon Dioxide BUN Creatinine Glucose Uric Acid Calcium Phosphorus GGT ALT Alkaline Phosphatase NT-Pro-B Natriuret Pep 519.4 H Total Protein Albumin Albumin/Globulin Ratio Urine Occult Blood 0.03 A Ethyl Alcohol 04/24/19 04/24/19 04/24/19 14:14 14:12 14:12 WBC RBC Hgb Hct RDW Plt Count MPV Gran % Lymph % (Auto) D-Dimer 1.63 H ABG Methemoglobin VBG pO2 VBG O2 Saturation Carboxyhemoglobin Total Hemoglobin Sodium 121 L Potassium 5.2 H Chloride 83 L Carbon Dioxide BUN 6 L Creatinine 0.4 L Glucose 116 H Uric Acid Calcium Phosphorus GGT ALT 43 H Alkaline Phosphatase 147 H NT-Pro-B Natriuret Pep Total Protein Albumin Albumin/Globulin Ratio Urine Occult Blood Ethyl Alcohol 0.138 H 04/24/19 14:12 WBC 16.7 H RBC 4.18 L Hgb 13.1 L Hct 39.5 L RDW 16.2 H Plt Count 657 H MPV 7.3 L Gran % 80.0 H Lymph % (Auto) 6.0 L D-Dimer ABG Methemoglobin VBG pO2 VBG O2 Saturation Carboxyhemoglobin Total Hemoglobin Sodium Potassium Chloride Carbon Dioxide BUN Creatinine Glucose Uric Acid Calcium Phosphorus GGT ALT Alkaline Phosphatase NT-Pro-B Natriuret Pep Total Protein Albumin Albumin/Globulin Ratio Urine Occult Blood Ethyl Alcohol Meds: Medications Acetaminophen (Tylenol) 650 mg PO Q4-6HP PRN PRN Reason: PAIN/FEVER > 101 Al Hydrox/Mg Hydrox/Simethicone (Maalox) 30 ml PO Q4-6HP PRN PRN Reason: Dyspepsia Albuterol Sulfate (Ventolin) 2.5 mg NEB Q2HP PRN PRN Reason: Shortness Of Breath Albuterol/Ipratropium (Duoneb) 3 ml NEB Q4HRT [facility] Last Admin: 04/27/19 12:23 Dose: 3 ml Documented by: Amlodipine Besylate (Norvasc) 10 mg PO QDAY [facility] Last Admin: 04/27/19 09:59 Dose: 10 mg Documented by: Atorvastatin Calcium (Lipitor) 10 mg PO DAILY [facility] Last Admin: 04/27/19 09:58 Dose: 10 mg Documented by: Azithromycin (Zithromax) 250 mg PO DAILY [facility]; Protocol Stop: 04/28/19 09:01 Last Admin: 04/27/19 09:58 Dose: 250 mg Documented by: Bisacodyl (Dulcolax) 10 mg ME Q2-3DAYS PRN PRN Reason: Constipation Bisoprolol Fumarate (Zebeta) 5 mg PO QDAY [facility] Last Admin: 04/27/19 09:59 Dose: 5 mg Documented by: Calcium/Vitamin D (Calcium W/Vit D3) 500 mg PO BID [facility] Last Admin: 04/27/19 09:57 Dose: 500 mg Documented by: Clopidogrel Bisulfate (Plavix) 75 mg PO QDAY [facility] Last Admin: 04/27/19 09:58 Dose: 75 mg Documented by: Cyanocobalamin (Vitamin B-12) 500 mcg PO QDAY [facility] Last Admin: 04/27/19 09:57 Dose: 500 mcg Documented by: Docusate Sodium (Colace) 100 mg PO BID [facility] Last Admin: 04/27/19 10:00 Dose: 100 mg Documented by: Famotidine (Pepcid) 20 mg PO [facility] Last Admin: 04/26/19 19:35 Dose: 20 mg Documented by: Heparin Sodium (Porcine) (Heparin) 5,000 unit SQ Q12 [facility] Last Admin: 04/27/19 10:00 Dose: 5,000 unit Documented by: Piperacillin Sod/Tazobactam (Sod 3.375 gm/ Dextrose) 50 mls @ 100 mls/hr IV Q6H [facility]; Protocol Last Admin: 04/27/19 12:32 Dose: 100 mls/hr Documented by: Vancomycin HCl 750 mg/ Sodium (Chloride) 250 mls @ 250 mls/hr IV Q12H [facility] Last Admin: 04/27/19 09:59 Dose: 250 mls/hr Documented by: Lorazepam (Ativan) 0 mg IV Q4HP PRN; Protocol PRN Reason: Alcohol Withdrawal Last Admin: 04/26/19 18:36 Dose: 3 mg Documented by: Lorazepam (Ativan) 2 mg IV Q4-6HP PRN PRN Reason: ANXIETY/SEDATION Last Admin: 04/27/19 12:47 Dose: 2 mg Documented by: Losartan Potassium (Cozaar) 100 mg PO DAILY [facility] Last Admin: 04/27/19 09:59 Dose: 100 mg Documented by: Magnesium Hydroxide (Milk Of Magnesia) 30 ml PO DAILYP PRN PRN Reason: Constipation Melatonin (Melatonin 3mg Tablet) 6 mg PO [facility] Last Admin: 04/26/19 19:36 Dose: 6 mg Documented by: Multivit/Ca Carb/B Cmplx/FA/Prenat (Diatx) 1 tab PO HS [facility] Last Admin: 04/26/19 19:35 Dose: 1 tab Documented by: Naloxone HCl (Narcan) 0.1 mg IV Q2MIN PRN PRN Reason: Opiate Reversal Nicotine (Nicoderm) 21 mg TOPICAL DAILY@1000 SAL Ondansetron HCl (Zofran) 4 mg IV Q4-6HP PRN PRN Reason: Nausea And Vomiting Pantoprazole Sodium (Protonix) 40 mg PO BIDAC [facility] Last Admin: 04/27/19 07:51 Dose: 40 mg Documented by: Budesonide/Formoterol Fumarate [Symbicort 160-4.5 Mcg Inhaler] 1 dose INH BID [facility] Last Admin: 04/26/19 19:36 Dose: Not Given Documented by: Prednisone (Prednisone) 40 mg PO [facility] Promethazine HCl (Phenergan) 12.5 mg IV Q4-6HP PRN PRN Reason: Nausea And Vomiting Pyridoxine HCl (Vitamin B-6) 100 mg PO DAILY [facility] Last Admin: 04/27/19 09:58 Dose: 100 mg Documented by: Kareen (Senokot) 2 tab PO [facility] Last Admin: 04/26/19 19:36 Dose: 2 tab Documented by: Sodium Biphosphate/Sodium Phosphate (Fleets Adult) 1 dose ME Q3-4DAYS PRN PRN Reason: Constipation Sodium Chloride (Saline Flush) 10 ml IV Q8 [facility] Last Admin: 04/27/19 05:11 Dose: 10 ml Documented by: Tamsulosin HCl (Flomax) 0.4 mg PO QDAY [facility] Last Admin: 04/27/19 09:59 Dose: 0.4 mg Documented by: Thiamine HCl (Vitamin B1) 100 mg PO DAILY [facility] Stop: 05/02/19 11:59 Last Admin: 04/27/19 09:59 Dose: 100 mg Documented by: Tiotropium Troup (Spiriva) 18 mcg INH QDAY [facility] Vancomycin HCl (Vancomycin Per Pharmacy) 1 order IV UD [facility]; Protocol - ABG Interpretation ABG results: 04/24/19 14:26 ABG Methemoglobin 0.3 L VBG pH 7.39 VBG pCO2 44.2 VBG pO2 129 H VBG HCO3 26.3 VBG Total CO2 27.6 VBG O2 Saturation 91.3 H VBG Base Excess 1.1 Medical - PN: A/P - Time Spent With Patient Total time spent is greater than 50% in coordination of care (as documented) at patient's floor/unit and/or counseling patient: - Narrative A/P Narrative: A: *Acute hypoxic/hypercapnic respiratory failure 2/2 AECOPD: Clinically improving -4L NC which is baseline *AECOPD (3-5L@home): Clinically improved -Remains a very high risk mortality. -CT neg for PE *HCAP: *Hyponatremia, Euvolemic, acute on chronic: Resolved *Hypokalemia/Mag/Phos: *Severe protein calorie malnutrition/frailty: *Alcoholism/Alcohol intoxication: -12 beers a day. Has no desire to quit, will start beer with meals for now, to help with his cravings. *CAD: *HTN: *BPH: on tamsulosin *Paraplegia: continue frequent turning/specialty bed to prevent decubitus *GERD on PPI *Anxiety/Depression: *goals of care: Poor prognosis given etoh, tobacco abuse, poor functional status, other comorbidities and high risk for readmissions Plan: -IV Vanc/zosyn, pending BC/SC -steroids(wean)/bronchodilators/supplemental oxygen -IS/Acapella, CPT for mucous plugging -f/u CXR -trend PCT -Protein calorie supplements/multivitamins/minerals/Dietary consult -PO thiamine, folic acid, CIWA protocol for now -prn electrolyte replacement -pt/ot -continue Plavix/BB/statin -losartan/amlodipine/bisoprolol -f/u outpt with Dr. Colindres. -f/u outpt with urology as scheduled -ppx: Heparin/home ppi DNR
[2019-04-27] MEDS: TIOTROPIUM BROMIDE 18 MCG INHALANT INH SCH (13:52)
[2019-04-27 14:02] LABS: Anisocytosis 1+ (NONE SEEN); Lymphocytes % 1 % (15-49); Monocytes % (Manual) 3 % (1-12); Platelet Estimate INCREASED (NORMAL); RBC Morphology ABNORMAL (NORMAL); Segmented Neutrophils % 96 % (38-78)
[2019-04-27] MEDS: NEUTRA PHOS 1 PACKET PO SCH (15:21)
[2019-04-27] MEDS: NICOTINE 21 MG PATCH TOPICAL SCH (15:21)
[2019-04-27] MEDS: FOLIC ACID/VITAMIN B COMP W-C 1 TAB TABLET PO SCH (21:19)
[2019-04-27] MEDS: MELATONIN 3 MG TABLET PO SCH (21:19)
[2019-04-27] MEDS: FAMOTIDINE 20 MG TABLET PO SCH (21:19)
[2019-04-27] MEDS: SENNOSIDES 1 TABLET PO SCH (21:20)
[2019-04-28] MEDS: NEUTRA PHOS 1 PACKET PO SCH ×5 (00:10→22:22)
[2019-04-28] MEDS: PIPERACILLIN SODIUM/TAZOBACTAM 3.375 GM in DEXTROSE 5% IN WATER 50 ML IV SCH ×5 (00:12→23:41)
[2019-04-28] MEDS: 0.9 % SODIUM CHLORIDE 10 ML SYRINGE IV SCH ×4 (00:13→22:23)
[2019-04-28] MEDS: IPRATROPIUM/ALBUTEROL 3 ML AMPUL.NEB NEB SCH ×6 (03:11→22:47)
[2019-04-28] MEDS: LORazepam 2 MG/ML VIAL IV PRN ×2 (03:35→12:16)
[2019-04-28 06:16] LABS: Hematocrit 34.3 % (41.0-55.0); Hemoglobin 11.3 g/dL (13.5-16.5); Mean Cell Volume 95.9 fL (80.0-100.0); Mean Platelet Volume 6.8 fL (7.4-10.4); Platelet Count 670 K/mcL (140-440); RBC 3.57 M/mcL (4.50-5.90); Red Cell Distribution Width 16.9 % (11.5-14.5); WBC 21.1 K/mcL (4.5-11.0)
[2019-04-28 06:17] LABS: ALT/SGPT 39 U/l (0-40); AST/SGOT 30 U/l (0-37); Albumin 2.5 gm/dL (3.2-5.2); Albumin/Globulin Ratio 0.9 (1.0-2.3); Alkaline Phosphatase 95 U/L (39-117); Bilirubin,Direct < 0.2 mg/dL (0.0-0.3); Bilirubin,Total 0.3 mg/dL (0.0-1.0); Blood Urea Nitrogen 7 mg/dl (8-23); Calcium 8.8 mg/dl (8.6-10.4); Carbon Dioxide 27 mmol/L (22-30); Chloride 98 mmol/L (96-108); Globulin 2.9 gm/dL (2.2-3.7); Glomerular Filtration Rate 127; Glucose 76 mg/dL (70-105); Lactate Dehydrogenase 156 U/L (94-250); Magnesium 1.9 mg/dL (1.6-2.5); Phosphorous 0.5 mg/dL (2.7-4.5); Potassium 3.4 mmol/L (3.3-5.1); Sodium 135 mmol/L (133-145); Triglycerides 101 mg/dl (<150); Uric Acid 1.4 mg/dL (2.5-8.0)
--- NOTE | 2019-04-28 07:20 | Internal Med Progress Note ---
Medical - PN: Subj Patient information: Note initiated : 04/28/19 at 7:08 am Service Date, if different from initiated Date: [] Patient: Ankit Gandhi a 63 y/o M admitted on 04/24/19 for Shortness of breath. Chief Complaint: [] Interval history: Mr. Gandhi is a 63 year old M with h/o severe copd, on 3-4 L oxygen at baseline, paraplegic, heavy etoh use, presents to the emergency room today for evaluation of shortness of breath. The patient was discharged from this facility 5 days ago on the of this month. At that time according to the notes patient was breathing fairly well and the patient confirms that. He however notes that he has been short of breath for nearly a week. This afternoon his condition deteriorated suddenly he was very short of breath and therefore he came to the emergency room. He has cough but is unable to bring up any sputum, he denies any chest pain or chest tightness denies any headache dizziness changes in vision or difficulty in swallowing. Denies any fever or chills any abdominal pain, he has not had bowel movements for the last 2 days. He has a chronic indwelling Sanchez catheter does have a history of recurrent urine tract infections. Patient is paraplegic and unable to move his lower extremities according to the family there is some problem with the blood supply to the spinal cord and they have seen an interventional radiologist for same. On presenting to the emergency room patient was significantly hypoxic with oxygen saturation in the 50s, he has a low-grade temperature 91.3. On my evaluation patient was hemodynamically stable heart rate 77 blood pressure 132/71 he was saturating 95% on 8 L of oxygen. Patient's labs show leukocytosis 16.7 hemoglobin 13.1 platelets 657. Sodium is 121 potassium 5.2 bicarbonate 25 creatinine 0.4 alcohol level is 0.138. The patient on my evaluation was tachypneic, on 8 L of oxygen. Blood gas was done which appears to be mixed but is reported as venous pH 7.39 PCO2 44 PO2 was 129 and O2 sat 90%. Patient has declined BiPAP use noting that he is significantly claustrophobic and would not use one. He is also not happy with the oxygen mask that is on right now. He is declined BiPAP in the past. His sister is by the bedside. I explained to him that should his condition worsen would he want us to try some medications and BiPAP and he declined. The patient actively smokes as well as drinks heavily up to 12 beers a day. I reiterated his overall poor prognosis because of active smoking as well as heavy alcohol use in light of his comorbidities. They verbalized understanding. Patient does wish treatment to relieve his symptoms notes that he does not wish to and would like treatment to help him, he lives by himself with a acute care nurse practitioner, who bring him his alcohol Patient is going to be admitted to PCU status 04/25 Patient seen and examined, no acute overnight events, his sodium level improved significantly just with IV fluids, 130 last night. Was switched to D5 water however this morning sodium level is still gone up to 133. I am going to increase the rate of D5 water 200 cc and recheck labs this afternoon Patient notes that his breathing is much better. He is presently on high flow nasal cannula oxygen Labs show improved WBC count Chest CT shows bilateral pneumonia, vancomycin was added yesterday 04/26 Patient seen and examined, no acute overnight events. Weaned down to 3 L of ox ygen now. Hemodynamically stable, clinically has shown signs of improvement. WBC has worsened but could be secondary to steroids Cultures are negative so far. Patient is responding to antibiotic treatment. Transfer to [facility] status. Sodium level is 134. Discontinue D5 water now 04/27 Pt seen examined, no acute issues, still has cough and shortness of breath, but improved since admission. He is very anxious to go home. After long discussion it seems that he still has a desire to drink alcohol. Given the fact that his WBC count is trending up today, procalcitonin is 0.18 I believe it would be prudent for him to stay in the hospital for further monitoring and continuation of IV antibiotic therapy. The patient is willing to stay and I have offered an beer with meals. 04/28 No issues overnight patient was placed on 7 L last night. Has an occasional cough nonproductive. Denies shortness of breath this time. Has headache. Almost left AMA several days ago. Some times patient not cooperative with medications. Review of Systems: denies fever/chills/nausea/vomiting/chest or abdominal pain/diarrhea. Otherwise see above. - Constitutional Vitals: Vital Signs Temp Pulse Resp BP Pulse Ox 99.2 F H 92 H 24 H 122/73 91 04/28/19 03:06 04/28/19 03:07 04/28/19 03:07 04/28/19 03:06 04/28/19 03:06 Period Temp Pulse Resp BP Sys/Hensley Pulse Ox Last 24 Hr 97.8 F-99.2 F 70-95 16-24 101-122/64-73 90-91 Intake and Output 04/27/19 04/28/19 04/28/19 21:59 05:59 13:59 Intake Total 50 350 Output Total 1000 1200 Balance -950 -850 Weight 49.895 kg Intake & Output: Intake & Output 04/27/19 04/28/19 04/28/19 21:59 05:59 13:59 Intake Total 50 350 Output Total 1000 1200 Balance -950 -850 Weight 49.895 kg Intake: IV 50 50 Zosyn 3.375 gm In Dextrose 5% 50 50 in Water 50 ml @ 100 mls/hr IV Q6H [facility] Rx#:[id number] Oral 300 Output: Urine Catheter Amount 1000 1200 Other: Meal Nourishment/Supplement Percent of Meal Consumed 10 Urine Color Dark Yellow Urine Odor Normal Exam: General: Alert, Awake, No acute Distress, cachectic Eyes/N/T: EOMI, Head/Neck: neck supple, CV: RRR, No murmurs, Pulm: Diminished bilaterally, no wheezing Abd: soft, nontender, +BS x4 Ext: no clubbing/cyanosis/edema Neuro: Alert, paraplegic lower extremities previous condition Skin: warm/dry Medical - PN: Obj Da - Labs CBC & Chem 7: 04/28/19 04:48 04/28/19 04:48 Labs: Abnormal Lab Results 04/28/19 04/28/19 04/27/19 04:48 04:48 04:15 WBC 21.1 H RBC 3.57 L Hgb 11.3 L Hct 34.3 L RDW 16.9 H Plt Count 670 H MPV 6.8 L Gran % Lymph % (Auto) Seg Neutrophils % Lymphocytes % Platelet Estimate Anisocytosis Sodium Chloride BUN 7 L 6 L Creatinine 0.4 L 0.4 L Glucose 134 H Uric Acid 1.4 L 1.3 L Calcium Phosphorus 0.5 L 1.8 L GGT 74 H 78 H Alkaline Phosphatase 123 H Total Protein 5.4 L 5.5 L Albumin 2.5 L 2.6 L Albumin/Globulin Ratio 0.9 L 0.9 L 04/27/19 04/27/19 04/26/19 04:15 04:12 03:34 WBC 21.2 H RBC 3.56 L Hgb 11.1 L Hct 34.2 L RDW 17.0 H Plt Count 691 H MPV 6.8 L Gran % 96.0 H Lymph % (Auto) 1.0 L Seg Neutrophils % 96 H Lymphocytes % 1 L Platelet Estimate Increased A Anisocytosis 1+ A Sodium Chloride BUN 5 L Creatinine 0.4 L Glucose 245 H Uric Acid 1.3 L Calcium Phosphorus 1.2 L GGT 75 H Alkaline Phosphatase Total Protein 5.3 L Albumin 2.6 L Albumin/Globulin Ratio 04/26/19 04/25/19 04/25/19 03:34 18:20 11:15 WBC 17.8 H RBC 3.44 L Hgb 10.9 L Hct 33.3 L RDW 16.9 H Plt Count 633 H MPV 7.3 L Gran % 93.0 H Lymph % (Auto) 3.0 L Seg Neutrophils % Lymphocytes % Platelet Estimate Anisocytosis Sodium 130 L 130 L Chloride 90 L 91 L BUN 7 L Creatinine 0.4 L 0.3 L Glucose 185 H 248 H Uric Acid Calcium 8.5 L Phosphorus GGT Alkaline Phosphatase Total Protein Albumin Albumin/Globulin Ratio Meds: Medications Acetaminophen (Tylenol) 650 mg PO Q4-6HP PRN PRN Reason: PAIN/FEVER > 101 Last Admin: 04/27/19 18:43 Dose: 650 mg Documented by: Al Hydrox/Mg Hydrox/Simethicone (Maalox) 30 ml PO Q4-6HP PRN PRN Reason: Dyspepsia Albuterol Sulfate (Ventolin) 2.5 mg NEB Q2HP PRN PRN Reason: Shortness Of Breath Albuterol/Ipratropium (Duoneb) 3 ml NEB Q4HRT [facility] Last Admin: 04/28/19 07:04 Dose: 3 ml Documented by: Amlodipine Besylate (Norvasc) 10 mg PO QDAY [facility] Last Admin: 04/27/19 09:59 Dose: 10 mg Documented by: Atorvastatin Calcium (Lipitor) 10 mg PO DAILY [facility] Last Admin: 04/27/19 09:58 Dose: 10 mg Documented by: Azithromycin (Zithromax) 250 mg PO DAILY [facility]; Protocol Stop: 04/28/19 09:01 Last Admin: 04/27/19 09:58 Dose: 250 mg Documented by: Bisacodyl (Dulcolax) 10 mg VT Q2-3DAYS PRN PRN Reason: Constipation Bisoprolol Fumarate (Zebeta) 5 mg PO QDAY [facility] Last Admin: 04/27/19 09:59 Dose: 5 mg Documented by: Calcium/Vitamin D (Calcium W/Vit D3) 500 mg PO BID [facility] Last Admin: 04/27/19 21:19 Dose: 500 mg Documented by: Clopidogrel Bisulfate (Plavix) 75 mg PO QDAY [facility] Last Admin: 04/27/19 09:58 Dose: 75 mg Documented by: Cyanocobalamin (Vitamin B-12) 500 mcg PO QDAY [facility] Last Admin: 04/27/19 09:57 Dose: 500 mcg Documented by: Docusate Sodium (Colace) 100 mg PO BID [facility] Last Admin: 04/27/19 21:19 Dose: 100 mg Documented by: Famotidine (Pepcid) 20 mg PO HS [facility] Last Admin: 04/27/19 21:19 Dose: 20 mg Documented by: Heparin Sodium (Porcine) (Heparin) 5,000 unit SQ Q12 [facility] Last Admin: 04/27/19 21:24 Dose: 5,000 unit Documented by: Piperacillin Sod/Tazobactam (Sod 3.375 gm/ Dextrose) 50 mls @ 100 mls/hr IV Q6H [facility]; Protocol Last Admin: 04/28/19 06:24 Dose: 100 mls/hr Documented by: Vancomycin HCl 750 mg/ Sodium (Chloride) 250 mls @ 250 mls/hr IV Q12H [facility] Last Admin: 04/27/19 21:11 Dose: 250 mls/hr Documented by: Lorazepam (Ativan) 0 mg IV Q4HP PRN; Protocol PRN Reason: Alcohol Withdrawal Last Admin: 04/26/19 18:36 Dose: 3 mg Documented by: Lorazepam (Ativan) 2 mg IV Q4-6HP PRN PRN Reason: ANXIETY/SEDATION Last Admin: 04/28/19 03:35 Dose: 2 mg Documented by: Losartan Potassium (Cozaar) 100 mg PO DAILY [facility] Last Admin: 04/27/19 09:59 Dose: 100 mg Documented by: Magnesium Hydroxide (Milk Of Magnesia) 30 ml PO DAILYP PRN PRN Reason: Constipation Melatonin (Melatonin 3mg Tablet) 6 mg PO [facility] Last Admin: 04/27/19 21:19 Dose: 6 mg Documented by: Multivit/Ca Carb/B Cmplx/FA/Prenat (Diatx) 1 tab PO HS [facility] Last Admin: 04/27/19 21:19 Dose: 1 tab Documented by: Naloxone HCl (Narcan) 0.1 mg IV Q2MIN PRN PRN Reason: Opiate Reversal Nicotine (Nicoderm) 21 mg TOPICAL DAILY@1000 [facility] Last Admin: 04/27/19 15:21 Dose: 21 mg Documented by: Ondansetron HCl (Zofran) 4 mg IV Q4-6HP PRN PRN Reason: Nausea And Vomiting Pantoprazole Sodium (Protonix) 40 mg PO BIDAC [facility] Last Admin: 04/27/19 18:13 Dose: 40 mg Documented by: Budesonide/Formoterol Fumarate [Symbicort 160-4.5 Mcg Inhaler] 1 dose INH BID [facility] Last Admin: 04/28/19 00:14 Dose: Not Given Documented by: Potassium/Phosphorus/Sodium (Neutra Phos) 1 packet PO TID [facility] Stop: 04/28/19 09:01 Last Admin: 04/28/19 00:10 Dose: Not Given Documented by: Prednisone (Prednisone) 40 mg PO [facility] Promethazine HCl (Phenergan) 12.5 mg IV Q4-6HP PRN PRN Reason: Nausea And Vomiting Pyridoxine HCl (Vitamin B-6) 100 mg PO DAILY [facility] Last Admin: 04/27/19 09:58 Dose: 100 mg Documented by: Senjeffery (Senokot) 2 tab PO [facility] Last Admin: 04/27/19 21:20 Dose: 2 tab Documented by: Sodium Biphosphate/Sodium Phosphate (Fleets Adult) 1 dose VT Q3-4DAYS PRN PRN Reason: Constipation Sodium Chloride (Saline Flush) 10 ml IV Q8 [facility] Last Admin: 04/28/19 06:24 Dose: 10 ml Documented by: Tamsulosin HCl (Flomax) 0.4 mg PO QDAY [facility] Last Admin: 04/27/19 09:59 Dose: 0.4 mg Documented by: Thiamine HCl (Vitamin B1) 100 mg PO DAILY [facility] Stop: 05/02/19 11:59 Last Admin: 04/27/19 09:59 Dose: 100 mg Documented by: Tiotropium [place] (Spiriva) 18 mcg INH QDAY [facility] Last Admin: 04/27/19 13:52 Dose: Not Given Documented by: Vancomycin HCl (Vancomycin Per Pharmacy) 1 order IV UD [facility]; Protocol - ABG Interpretation ABG results: 04/24/19 14:26 ABG Methemoglobin 0.3 L VBG pH 7.39 VBG pCO2 44.2 VBG pO2 129 H VBG HCO3 26.3 VBG Total CO2 27.6 VBG O2 Saturation 91.3 H VBG Base Excess 1.1 Medical - PN: A/P - Time Spent With Patient Total time spent is greater than 50% in coordination of care (as documented) at patient's floor/unit and/or counseling patient: - Narrative A/P Narrative: A: *Acute hypoxic/hypercapnic respiratory failure 2/2 AECOPD: Clinically improving -4L NC which is baseline *AECOPD (3-5L@home): -Remains a very high risk mortality. -CT neg for PE *HCAP: *Hyponatremia, Euvolemic, acute on chronic: Resolved *Hypokalemia/Mag/Phos: *Severe protein calorie malnutrition/frailty: *Alcoholism/Alcohol intoxication: -12 beers a day. Has no desire to quit, will start beer with meals for now, to help with his cravings. *CAD: *HTN: *BPH: on tamsulosin *Paraplegia: continue frequent turning/specialty bed to prevent decubitus *GERD on PPI *Anxiety/Depression: *goals of care: Poor prognosis given etoh, tobacco abuse, poor functional status, other comorbidities and high risk for readmissions *Appears to have cognitive dysfunction: 2/2 alcoholism vs vascular dementia Plan: -IV Vanc(d/c)/zosyn, -steroids(wean)/bronchodilators/supplemental oxygen -IS/Acapella, CPT for mucous plugging -f/u CXR -Protein calorie supplements/multivitamins/minerals/Dietary consult -PO thiamine, folic acid, CIWA protocol for now -prn electrolyte replacement -pt/ot/ST -continue Plavix/BB/statin -losartan/amlodipine(decrease)/bisoprolol -f/u outpt with Dr. Colindres. -f/u outpt with urology as scheduled -ppx: Heparin/home ppi DNR
[2019-04-28 07:26] LABS: Anisocytosis 1+ (NONE SEEN); Band Neutrophils % 3 % (0-10); Lymphocytes % 8 % (15-49); Monocytes % (Manual) 3 % (1-12); Platelet Estimate INCREASED (NORMAL); RBC Morphology ABNORM (NORMAL); Segmented Neutrophils % 86 % (38-78)
[2019-04-28] MEDS ORDERED: POTASSIUM PHOSPHATE 40 MEQ in DEXTROSE 5% IN WATER 500 ML IV ONE (08:00)
[2019-04-28] MEDS: predniSONE 10 MG TABLET PO SCH ×3 (08:05→12:36)
[2019-04-28] MEDS: PANTOPRAZOLE 40 MG TABLET PO SCH ×3 (08:06→18:38)
--- NOTE | 2019-04-28 09:23 | Discharge Summary ---
Medical - DS: Prov Patient information: Note initiated : 04/28/19 at 9:20 am Service Date, if different from initiated Date: [] Patient: Ankit Gandhi 63 y/o M admitted on 04/24/19 for Shortness of breath. Chief Complaint: [] Date of admission: 04/24/19 18:22 Discharge date: 04/30/19 Primary care physician: Denice Bernabe Consults: 04/24/19 17:37 Consult to Physician [CONS] Stat Comment: Consulting Provider: Brandt Ashby Reason For Exam: Physician to Consult Medical - DS: Meds - Discharge Medications Prescriptions: Hyoscyamine Sulfate [Levsin] 0.125 mg SL Q4HP PRN #20 tab PRN Reason: Secretions Levofloxacin [Levaquin] 750 mg PO DAILY #2 tab LORazepam [Ativan] 1 - 2 mg PO Q2HP PRN #30 ml PRN Reason: Anxiety metroNIDAZOLE [Flagyl] 500 mg PO TID #6 tab morphine 2 - 4 mg SL Q2HP PRN #30 ml PRN Reason: Pain predniSONE [Prednisone] 20 mg PO QAMCC #1 tab Active and Home Medications: Home Medications albuterol 90 mcg/actuation aerosol inhaler 2 puff INHALATION QID PRN 04/04/17 [History Confirmed 04/24/19 Last Taken 03/11/19] budesonide-formoterol HFA 160 mcg-4.5 mcg/actuation aerosol inhaler 2 inh INHALATION BID 04/04/17 [History Confirmed 04/24/19 Last Taken 03/11/19] clopidogrel 75 mg tablet 75 mg PO QDAY 04/04/17 [History Confirmed 04/24/19 Last Taken 03/11/19] guaifenesin ER 600 mg tablet, extended release 12 hr 600 mg PO BID tab 04/04/17 [History Confirmed 04/24/19 Last Taken 03/11/19] ipratropium-albuterol 0.5 mg-3 mg(2.5 mg base)/3 mL nebulization soln 3 ml INHALATION QID PRN ml 04/04/17 [History Confirmed 04/24/19 Last Taken 03/11/19] losartan 100 mg tablet 100 mg PO QDAY 04/04/17 [History Confirmed 04/24/19 Last Taken 03/11/19] multivitamin capsule 1 tab-cap PO QDAY 04/04/17 [History Confirmed 04/24/19 Last Taken 03/11/19] pravastatin 40 mg tablet 40 mg PO QDAY tab 04/04/17 [History Confirmed 04/24/19 Last Taken 03/11/19] thiamine HCl (vitamin B1) 100 mg tablet 100 mg PO QDAY 04/04/17 [History Confirmed 04/24/19 Last Taken 03/11/19] amlodipine 10 mg tablet 10 mg PO QDAY 12/31/18 [History Confirmed 04/24/19 Last Taken 03/11/19] bisoprolol fumarate 5 mg tablet 5 mg PO QDAY 12/31/18 [History Confirmed 04/24/19 Last Taken 03/11/19] calcium carbonate-vitamin D3 600 mg calcium-200 unit capsule 1 cap PO BID cap 12/31/18 [History Confirmed 04/24/19 Last Taken 03/11/19] cyanocobalamin (vit B-12) 500 mcg tablet 500 mcg PO QDAY 12/31/18 [History Confirmed 04/24/19 Last Taken 03/11/19] doxycycline monohydrate 100 mg capsule 100 mg PO BID 12/31/18 [History Confirmed 04/24/19 Last Taken 03/11/19] fluconazole 100 mg tablet 200 mg PO QDAY 12/31/18 [History Confirmed 04/24/19 Last Taken 03/11/19] food supplement, lactose-reduced oral liquid 1 each PO TID ml 12/31/18 [History Confirmed 04/24/19 Last Taken Unknown] loperamide 2 mg capsule 2 mg PO TIDP PRN 12/31/18 [History Confirmed 04/24/19 Last Taken 03/11/19] melatonin 3 mg tablet 6 mg PO HS tab 12/31/18 [History Confirmed 04/24/19 Last Taken 03/11/19] omeprazole 20 mg capsule,delayed release 20 mg PO BID cap 12/31/18 [History Confirmed 04/24/19 Last Taken 03/11/19] pyridoxine (vitamin B6) 50 mg capsule 100 mg PO QDAY cap 12/31/18 [History Confirmed 04/24/19 Last Taken 03/11/19] sildenafil 100 mg tablet 50 - 100 mg PO ONCE PRN 12/31/18 [History Confirmed 04/24/19 Last Taken 03/11/19] tamsulosin 0.4 mg capsule 0.4 mg PO QDAY 12/31/18 [History Confirmed 04/24/19 Last Taken 03/11/19] tiotropium bromide 18 mcg capsule with inhalation device 1 cap INHALATION QDAY 12/31/18 [History Confirmed 04/24/19 Last Taken 03/11/19] Sodium Chloride 1 gm PO DAILY #30 tab 04/20/19 [Rx Confirmed 04/24/19 Last Taken Unknown] Azithromycin [Zithromax] 500 mg PO DAILY 04/24/19 [History Confirmed 04/24/19 Last Taken Unknown] Nystatin 1,500,000 units PO QID 04/24/19 [History Confirmed 04/24/19 Last Taken Unknown] [facility]] [facility] [place] [facility] [History Confirmed 04/24/19 Last Taken Unknown] Medical - DS: Hosp Hospital course: Mr. Gandhi is a 63 year old M Mr. Gandhi is a 63 year old M with h/o severe copd, on 3-4 L oxygen at baseline, paraplegic, heavy etoh use, presents to the emergency room today for evaluation of shortness of breath. The patient was discharged from this facility 5 days ago on the 16th of this month. At that time according to the notes patient was breathing fairly well and the patient confirms that. He however notes that he has been short of breath for nearly a week. This afternoon his condition deteriorated suddenly he was very short of breath and therefore he came to the emergency room. He has cough but is unable to bring up any sputum, he denies any chest pain or chest tightness denies any headache dizziness changes in vision or difficulty in swallowing. Denies any fever or chills any abdominal pain, he has not had bowel movements for the last 2 days. He has a chronic indwelling Sanchez catheter does have a history of recurrent urine tract infections. Patient is paraplegic and unable to move his lower extremities according to the family there is some problem with the blood supply to the spinal cord and they have seen an interventional radiologist for same. On presenting to the emergency room patient was significantly hypoxic with oxygen saturation in the 50s, he has a low-grade temperature 91.3. On my evaluation patient was hemodynamically stable heart rate 77 blood pressure 132/71 he was saturating 95% on 8 L of oxygen. Patient's labs show leukocytosis 16.7 hemoglobin 13.1 platelets 657. Sodium is 121 potassium 5.2 bicarbonate 25 creatinine 0.4 alcohol level is 0.138. The patient on my evaluation was tachypneic, on 8 L of oxygen. Blood gas was done which appears to be mixed but is reported as venous pH 7.39 PCO2 44 PO2 was 129 and O2 sat 90%. Patient has declined BiPAP use noting that he is significantly claustrophobic and would not use one. He is also not happy with the oxygen mask that is on right now. He is declined BiPAP in the past. His sister is by the bedside. I explained to him that should his condition worsen would he want us to try some medications and BiPAP and he declined. The patient actively smokes as well as drinks heavily up to 12 beers a day. I reiterated his overall poor prognosis because of active smoking as well as heavy alcohol use in light of his comorbidities. They verbalized understanding. Patient does wish treatment to relieve his symptoms notes that he does not wish to and would like treatment to help him, he lives by himself with a special needs child caregiver, who bring him his alcohol Patient is going to be admitted to PCU status 04/25 Patient seen and examined, no acute overnight events, his sodium level improved significantly just with IV fluids, 130 last night. Was switched to D5 water however this morning sodium level is still gone up to 133. I am going to increase the rate of D5 water 200 cc and recheck labs this afternoon Patient notes that his breathing is much better. He is presently on high flow nasal cannula oxygen Labs show improved WBC count Chest CT shows bilateral pneumonia, vancomycin was added yesterday 04/26 Patient seen and examined, no acute overnight events. Weaned down to 3 L of oxygen now. Hemodynamically stable, clinically has shown signs of improvement. WBC has worsened but could be secondary to steroids Cultures are negative so far. Patient is responding to antibiotic treatment. Transfer to [facility] status. Sodium level is 134. Discontinue D5 water now 04/27 Pt seen examined, no acute issues, still has cough and shortness of breath, but improved since admission. He is very anxious to go home. After long discussion it seems that he still has a desire to drink alcohol. Given the fact that his WBC count is trending up today, procalcitonin is 0.18 I believe it would be prudent for him to stay in the hospital for further monitoring and continuation of IV antibiotic therapy. The patient is willing to stay and I have offered an beer with meals. 04/28 No issues overnight patient was placed on 7 L last night. Has an occasional cough nonproductive. Denies shortness of breath this time. Has headache. Almost left AMA several days ago. Some times patient not cooperative with medications. Starting to cooperate with therapies and medications now since was instructed that he needed to follow through with this regimen in order to go home sooner. 04/29 Was doing well on his 4 L this morning until about 730 when he started dropping his saturations and required high flow nasal cannula. Chest x-ray with right- sided infiltrates worsening. Concerning for aspiration. Recent states he coughs after coffee or water. Does not like thickened drinks. Discussed hospice with him and he seemed amenable. Is been on hospice in the past. States he just wants to at home. Care conference today with case management and power of county attorney. Has cough of white sputum but denies shortness of breath 04/30 Feeling well. Has a minimal cough. Denies any real shortness of breath. No overnight events. Wanting to go home. Family discussion and patient discussion yesterday resulted in hospice plans. Was able to place back on home 4 L nasal cannula and doing well. Plan for discharge home with hospice today. Discharge diagnosis: Acute on chronic hypercapnic hypoxic respiratory failure end-stage COPD Secondary discharge diagnosis: Aspiration pneumonitis questionable pneumonia electrolyte abnormality severe protein calorie malnutrition frailty alcohol abuse tobacco abuse CAD hypertension paraplegia GERD anxiety depression poor functional state Parainfluenza Oral pharyngeal dysphasia - Time Spent with Patient Total time spent providing and/or coordinating discharge services: Greater than 30 minutes Medical - DS: Exam - Constitutional Vitals: Vital Signs Temp Pulse Pulse Resp BP BP Pulse Ox 04/28/19 07:19 98.6 F 103 H 20 111/63 91 04/28/19 07:15 115 H 28 H 04/28/19 07:13 115 H 28 H 88 L 04/28/19 03:07 92 H 24 H 04/28/19 03:06 99.2 F H 92 H 20 122/73 91 04/28/19 00:13 98.4 F 92 H 20 114/68 90 04/27/19 22:55 79 18 04/27/19 19:29 98.5 F 83 20 117/70 90 04/27/19 19:10 94 H 20 04/27/19 16:00 97.8 F 95 H 22 116/71 90 04/27/19 15:35 93 H 20 04/27/19 12:30 77 16 04/27/19 12:00 99.2 F H 84 22 101/64 90 Intake and Output 04/27/19 04/28/19 04/28/19 21:59 05:59 13:59 Intake Total 50 350 Output Total 1000 1200 Balance -950 -850 Intake: IV 50 50 Zosyn 3.375 gm In Dextrose 5% 50 50 in Water 50 ml @ 100 mls/hr IV Q6H SAL Rx#:[id number] Oral 300 Output: Urine Catheter Amount 1000 1200 Other: Meal Nourishment/Supplement Percent of Meal Consumed 10 Urine Color Dark Yellow Urine Odor Normal Weight 49.895 kg Medical - DS: Data Labs on day of discharge: Labs from last 24 hours 04/28/19 04/28/19 04/28/19 08:26 08:26 04:48 WBC RBC Hgb Hct MCV MCH MCHC RDW Plt Count MPV Total Counted Seg Neutrophils % Band Neutrophils % Lymphocytes % Monocytes % (Manual) Platelet Estimate RBC Morphology Anisocytosis Smear Path Review Pending Sodium Potassium Chloride Carbon Dioxide Anion Gap BUN Creatinine GFR Calculation Glucose Uric Acid Calcium Phosphorus Magnesium Total Bilirubin Direct Bilirubin GGT AST ALT Alkaline Phosphatase Lactate Dehydrogenase Total Protein Albumin Globulin Albumin/Globulin Ratio Triglycerides Procalcitonin < 0.10 Mycoplasma pneumon IgM Pending 04/28/19 04/28/19 04/27/19 04:48 04:48 04:12 WBC 21.1 H RBC 3.57 L Hgb 11.3 L Hct 34.3 L MCV 95.9 MCH 31.6 MCHC 33.0 RDW 16.9 H Plt Count 670 H MPV 6.8 L Total Counted 100 100 Seg Neutrophils % 86 H 96 H Band Neutrophils % 3 Not Reportable Lymphocytes % 8 L 1 L Monocytes % (Manual) 3 3 Platelet Estimate Increased A Increased A RBC Morphology Abnorm A Abnormal Anisocytosis 1+ A 1+ A Smear Path Review Sodium 135 Potassium 3.4 Chloride 98 Carbon Dioxide 27 Anion Gap 10.0 BUN 7 L Creatinine 0.4 L GFR Calculation 127 Glucose 76 Uric Acid 1.4 L Calcium 8.8 Phosphorus 0.5 L Magnesium 1.9 Total Bilirubin 0.3 Direct Bilirubin < 0.2 GGT 74 H AST 30 ALT 39 Alkaline Phosphatase 95 Lactate Dehydrogenase 156 Total Protein 5.4 L Albumin 2.5 L Globulin 2.9 Albumin/Globulin Ratio 0.9 L Triglycerides 101 Procalcitonin Mycoplasma pneumon IgM Preliminary micro results at discharge 04/24/19 14:19 Blood Culture - Preliminary Blood 04/24/19 14:26 Blood Culture - Preliminary Blood Medical - DS: A/P - Patient/Caregiver Discharge Instructions Activity: increase activity as tolerated Diet: Dysphagia Mech Alter Prescriptions: Hyoscyamine Sulfate [Levsin] 0.125 mg SL Q4HP PRN #20 tab PRN Reason: Secretions Levofloxacin [Levaquin] 750 mg PO DAILY #2 tab LORazepam [Ativan] 1 - 2 mg PO Q2HP PRN #30 ml PRN Reason: Anxiety metroNIDAZOLE [Flagyl] 500 mg PO TID #6 tab morphine 2 - 4 mg SL Q2HP PRN #30 ml PRN Reason: Pain predniSONE [Prednisone] 20 mg PO QAC #1 tab - Follow up Plan Follow up with: Denice Bernabe ARNP [Primary Care Provider] - Disposition: Hospice - Home Prognosis: Serious Rehab Potential: Fair Overall status at discharge: patient is progressing back to baseline
[2019-04-28] MEDS: DOCUSATE SODIUM 100 MG CAPSULE PO SCH ×2 (11:03→22:22)
[2019-04-28] MEDS: CALCIUM W/VIT D3 500 MG TABLET PO SCH ×2 (11:03→22:22)
[2019-04-28] MEDS: TIOTROPIUM BROMIDE 18 MCG INHALANT INH SCH (11:04)
[2019-04-28] MEDS: TAMSULOSIN 0.4 MG CAPSULE PO SCH (11:06)
[2019-04-28] MEDS: amLODIPine 5 MG TABLET PO SCH ×2 (11:06→12:24)
[2019-04-28] MEDS: ATORVASTATIN 20 MG TABLET PO SCH (11:06)
[2019-04-28] MEDS: CYANOCOBALAMIN (VITAMIN B-12) 500 MCG TABLET PO SCH (11:10)
[2019-04-28] MEDS: THIAMINE 100 MG TABLET PO SCH (11:38)
[2019-04-28] MEDS: PYRIDOXINE 100 MG TABLET PO SCH (11:38)
[2019-04-28] MEDS: BISOPROLOL 5 MG TABLET PO SCH (12:09)
[2019-04-28] MEDS: NICOTINE 21 MG PATCH TOPICAL SCH (12:09)
[2019-04-28] MEDS: CLOPIDOGREL 75 MG TABLET PO SCH (12:13)
[2019-04-28] MEDS: LOSARTAN 50 MG TABLET PO SCH (12:30)
[2019-04-28] MEDS ORDERED: AZITHROMYCIN 250 MG TABLET PO SCH (18:00)
[2019-04-28] MEDS: HEPARIN 5,000 UNIT/ML VIAL SQ SCH ×2 (18:36→22:28)
[2019-04-28] MEDS: AZITHROMYCIN 250 MG TABLET PO SCH (18:37)
[2019-04-28] MEDS: FOLIC ACID/VITAMIN B COMP W-C 1 TAB TABLET PO SCH (22:22)
[2019-04-28] MEDS: FAMOTIDINE 20 MG TABLET PO SCH (22:22)
[2019-04-28] MEDS: MELATONIN 3 MG TABLET PO SCH (22:22)
[2019-04-28] MEDS: SENNOSIDES 1 TABLET PO SCH (22:23)
[2019-04-29] MEDS: IPRATROPIUM/ALBUTEROL 3 ML AMPUL.NEB NEB SCH ×6 (02:08→22:35)
[2019-04-29] MEDS: PIPERACILLIN SODIUM/TAZOBACTAM 3.375 GM in DEXTROSE 5% IN WATER 50 ML IV SCH ×4 (05:08→23:34)
[2019-04-29] MEDS: 0.9 % SODIUM CHLORIDE 10 ML SYRINGE IV SCH ×3 (05:09→20:10)
--- NOTE | 2019-04-29 07:30 | Internal Med Progress Note ---
Medical - PN: Subj Patient information: Note initiated : 04/29/19 at 7:25 am Service Date, if different from initiated Date: [] Patient: Ankit Gandhi a 63 y/o M admitted on 04/24/19 for Shortness of breath. Chief Complaint: [] Interval history: Mr. Gandhi is a 63 year old M with h/o severe copd, on 3-4 L oxygen at baseline, paraplegic, heavy etoh use, presents to the emergency room today for evaluation of shortness of breath. The patient was discharged from this facility 5 days ago on the of this month. At that time according to the notes patient was breathing fairly well and the patient confirms that. He however notes that he has been short of breath for nearly a week. This afternoon his condition deteriorated suddenly he was very short of breath and therefore he came to the emergency room. He has cough but is unable to bring up any sputum, he denies any chest pain or chest tightness denies any headache dizziness changes in vision or difficulty in swallowing. Denies any fever or chills any abdominal pain, he has not had bowel movements for the last 2 days. He has a chronic indwelling Sanchez catheter does have a history of recurrent urine tract infections. Patient is paraplegic and unable to move his lower extremities according to the family there is some problem with the blood supply to the spinal cord and they have seen an interventional radiologist for same. On presenting to the emergency room patient was significantly hypoxic with oxygen saturation in the 50s, he has a low-grade temperature 91.3. On my evaluation patient was hemodynamically stable heart rate 77 blood pressure 132/71 he was saturating 95% on 8 L of oxygen. Patient's labs show leukocytosis 16.7 hemoglobin 13.1 platelets 657. Sodium is 121 potassium 5.2 bicarbonate 25 creatinine 0.4 alcohol level is 0.138. The patient on my evaluation was tachypneic, on 8 L of oxygen. Blood gas was done which appears to be mixed but is reported as venous pH 7.39 PCO2 44 PO2 was 129 and O2 sat 90%. Patient has declined BiPAP use noting that he is significantly claustrophobic and would not use one. He is also not happy with the oxygen mask that is on right now. He is declined BiPAP in the past. His sister is by the bedside. I explained to him that should his condition worsen would he want us to try some medications and BiPAP and he declined. The patient actively smokes as well as drinks heavily up to 12 beers a day. I reiterated his overall poor prognosis because of active smoking as well as heavy alcohol use in light of his comorbidities. They verbalized understanding. Patient does wish treatment to relieve his symptoms notes that he does not wish to and would like treatment to help him, he lives by himself with a field care coordinator, who bring him his alcohol Patient is going to be admitted to PCU status 04/25 Patient seen and examined, no acute overnight events, his sodium level improved significantly just with IV fluids, 130 last night. Was switched to D5 water however this morning sodium level is still gone up to 133. I am going to increase the rate of D5 water 200 cc and recheck labs this afternoon Patient notes that his breathing is much better. He is presently on high flow nasal cannula oxygen Labs show improved WBC count Chest CT shows bilateral pneumonia, vancomycin was added yesterday 04/26 Patient seen and examined, no acute overnight events. Weaned down to 3 L of ox ygen now. Hemodynamically stable, clinically has shown signs of improvement. WBC has worsened but could be secondary to steroids Cultures are negative so far. Patient is responding to antibiotic treatment. Transfer to [facility] status. Sodium level is 134. Discontinue D5 water now 04/27 Pt seen examined, no acute issues, still has cough and shortness of breath, but improved since admission. He is very anxious to go home. After long discussion it seems that he still has a desire to drink alcohol. Given the fact that his WBC count is trending up today, procalcitonin is 0.18 I believe it would be prudent for him to stay in the hospital for further monitoring and continuation of IV antibiotic therapy. The patient is willing to stay and I have offered an beer with meals. 04/28 No issues overnight patient was placed on 7 L last night. Has an occasional cough nonproductive. Denies shortness of breath this time. Has headache. Almost left AMA several days ago. Some times patient not cooperative with medications. Seen by speech therapy and concern for aspiration. 04/29 Was doing well on his 4 L this morning until about 730 when he started dropping his saturations and required high flow nasal cannula. Chest x-ray with right- sided infiltrates worsening. Concerning for aspiration. Recent states he coughs after coffee or water. Does not like thickened drinks. Discussed hospice with him and he seemed amenable. Is been on hospice in the past. States he just wants to at home. Care conference today with case management and power of commercial litigation attorney. Has cough of white sputum but denies shortness of breath review of Systems: denies fever/chills/nausea/vomiting/chest or abdominal pain/diarrhea. Otherwise see above. - Constitutional Vitals: Vital Signs Temp Pulse Resp BP Pulse Ox 98.2 F 106 H 24 H 121/79 88 L 04/29/19 06:57 04/29/19 07:17 04/29/19 06:57 04/29/19 06:57 04/29/19 07:17 Period Temp Pulse Resp BP Sys/Hensley Pulse Ox Last 24 Hr 97.6 F-98.4 F 67-118 19-28 93-127/62-81 81-96 Intake and Output 04/28/19 04/29/19 04/29/19 21:59 05:59 13:59 Intake Total 340 Output Total 1120 550 Balance -1120 -210 Weight 47.446 kg Intake & Output: Intake & Output 04/28/19 04/29/19 04/29/19 21:59 05:59 13:59 Intake Total 340 Output Total 1120 550 Balance -1120 -210 Weight 47.446 kg Intake: IV 100 Zosyn 3.375 gm In Dextrose 5% 100 in Water 50 ml @ 100 mls/hr IV Q6H [facility] Rx#:[id number] Oral 240 Output: Urine Catheter Amount 1120 550 Other: Urine Appearance Clear Uretheral (Sanchez) Clear Urine Color Light Radha Uretheral (Sanchez) Bright Yellow Stool Size Moderate Stool Color Brown Stool Consistency Soft # Bowel Movements 2 # of times incontinent of 2 1 Bowels Exam: General: Alert, Awake, No acute Distress, cachectic Eyes/N/T: EOMI, Head/Neck: neck supple, CV: RRR, No murmurs, Pulm: Diminished bilaterally more on the right, no wheezing Abd: soft, nontender, +BS x4 Ext: no clubbing/cyanosis/edema Neuro: Alert, paraplegic lower extremities previous condition Skin: warm/dry Medical - PN: Obj Da - Labs CBC & Chem 7: 04/29/19 04:26 04/29/19 04:26 Labs: Abnormal Lab Results 04/28/19 04/28/19 04/27/19 04:48 04:48 04:15 WBC 21.1 H RBC 3.57 L Hgb 11.3 L Hct 34.3 L RDW 16.9 H Plt Count 670 H MPV 6.8 L Gran % Lymph % (Auto) Seg Neutrophils % 86 H Lymphocytes % 8 L Platelet Estimate Increased A RBC Morphology Abnorm A Anisocytosis 1+ A BUN 7 L 6 L Creatinine 0.4 L 0.4 L Glucose 134 H Uric Acid 1.4 L 1.3 L Phosphorus 0.5 L 1.8 L GGT 74 H 78 H Alkaline Phosphatase 123 H Total Protein 5.4 L 5.5 L Albumin 2.5 L 2.6 L Albumin/Globulin Ratio 0.9 L 0.9 L 04/27/19 04/27/19 04:15 04:12 WBC 21.2 H RBC 3.56 L Hgb 11.1 L Hct 34.2 L RDW 17.0 H Plt Count 691 H MPV 6.8 L Gran % 96.0 H Lymph % (Auto) 1.0 L Seg Neutrophils % 96 H Lymphocytes % 1 L Platelet Estimate Increased A RBC Morphology Anisocytosis 1+ A BUN Creatinine Glucose Uric Acid Phosphorus GGT Alkaline Phosphatase Total Protein Albumin Albumin/Globulin Ratio Meds: Medications Acetaminophen (Tylenol) 650 mg PO Q4-6HP PRN PRN Reason: PAIN/FEVER > 101 Last Admin: 04/27/19 18:43 Dose: 650 mg Documented by: Al Hydrox/Mg Hydrox/Simethicone (Maalox) 30 ml PO Q4-6HP PRN PRN Reason: Dyspepsia Albuterol Sulfate (Ventolin) 2.5 mg NEB Q2HP PRN PRN Reason: Shortness Of Breath Albuterol/Ipratropium (Duoneb) 3 ml NEB Q4HRT [facility] Last Admin: 04/29/19 06:55 Dose: 3 ml Documented by: Amlodipine Besylate (Norvasc) 2.5 mg PO QDAY [facility] Last Admin: 04/28/19 12:24 Dose: 2.5 mg Documented by: Atorvastatin Calcium (Lipitor) 10 mg PO DAILY [facility] Last Admin: 04/28/19 11:06 Dose: Not Given Documented by: Bisacodyl (Dulcolax) 10 mg WA Q2-3DAYS PRN PRN Reason: Constipation Bisoprolol Fumarate (Zebeta) 5 mg PO QDAY [facility] Last Admin: 04/28/19 12:09 Dose: 5 mg Documented by: Calcium/Vitamin D (Calcium W/Vit D3) 500 mg PO BID [facility] Last Admin: 04/28/19 22:22 Dose: Not Given Documented by: Clopidogrel Bisulfate (Plavix) 75 mg PO QDAY [facility] Last Admin: 04/28/19 12:13 Dose: 75 mg Documented by: Cyanocobalamin (Vitamin B-12) 500 mcg PO QDAY [facility] Last Admin: 04/28/19 11:10 Dose: Not Given Documented by: Docusate Sodium (Colace) 100 mg PO BID [facility] Last Admin: 04/28/19 22:22 Dose: Not Given Documented by: Famotidine (Pepcid) 20 mg PO [facility] Last Admin: 04/28/19 22:22 Dose: Not Given Documented by: Heparin Sodium (Porcine) (Heparin) 5,000 unit SQ Q12 [facility] Last Admin: 04/28/19 22:28 Dose: 5,000 unit Documented by: Piperacillin Sod/Tazobactam (Sod 3.375 gm/ Dextrose) 50 mls @ 100 mls/hr IV Q6H [facility]; Protocol Last Admin: 04/29/19 05:08 Dose: 100 mls/hr Documented by: Lorazepam (Ativan) 0 mg IV Q4HP PRN; Protocol PRN Reason: Alcohol Withdrawal Last Admin: 04/28/19 12:16 Dose: 2 mg Documented by: Lorazepam (Ativan) 2 mg IV Q4-6HP PRN PRN Reason: ANXIETY/SEDATION Last Admin: 04/28/19 03:35 Dose: 2 mg Documented by: Losartan Potassium (Cozaar) 100 mg PO DAILY [facility] Last Admin: 04/28/19 12:30 Dose: 100 mg Documented by: Magnesium Hydroxide (Milk Of Magnesia) 30 ml PO DAILYP PRN PRN Reason: Constipation Melatonin (Melatonin 3mg Tablet) 6 mg PO [facility] Last Admin: 04/28/19 22:22 Dose: Not Given Documented by: Multivit/Ca Carb/B Cmplx/FA/Prenat (Diatx) 1 tab PO [facility] Last Admin: 04/28/19 22:22 Dose: Not Given Documented by: Naloxone HCl (Narcan) 0.1 mg IV Q2MIN PRN PRN Reason: Opiate Reversal Nicotine (Nicoderm) 21 mg TOPICAL DAILY@1000 [facility] Last Admin: 04/28/19 12:09 Dose: 21 mg Documented by: Ondansetron HCl (Zofran) 4 mg IV Q4-6HP PRN PRN Reason: Nausea And Vomiting Pantoprazole Sodium (Protonix) 40 mg PO BIDAC [facility] Last Admin: 04/28/19 18:38 Dose: Not Given Documented by: Budesonide/Formoterol Fumarate [Symbicort 160-4.5 Mcg Inhaler] 1 dose INH BID [facility] Last Admin: 04/28/19 22:22 Dose: Not Given Documented by: Prednisone (Prednisone) 40 mg PO [facility] Last Admin: 04/28/19 12:36 Dose: 40 mg Documented by: Promethazine HCl (Phenergan) 12.5 mg IV Q4-6HP PRN PRN Reason: Nausea And Vomiting Pyridoxine HCl (Vitamin B-6) 100 mg PO DAILY [facility] Last Admin: 04/28/19 11:38 Dose: Not Given Documented by: Senna (Senokot) 2 tab PO HS [facility] Last Admin: 04/28/19 22:23 Dose: Not Given Documented by: Sodium Biphosphate/Sodium Phosphate (Fleets Adult) 1 dose WA Q3-4DAYS PRN PRN Reason: Constipation Sodium Chloride (Saline Flush) 10 ml IV Q8 [facility] Last Admin: 04/29/19 05:09 Dose: 10 ml Documented by: Tamsulosin HCl (Flomax) 0.4 mg PO QDAY [facility] Last Admin: 04/28/19 11:06 Dose: Not Given Documented by: Thiamine HCl (Vitamin B1) 100 mg PO DAILY [facility] Stop: 05/02/19 11:59 Last Admin: 04/28/19 11:38 Dose: Not Given Documented by: Tiotropium [place] (Spiriva) 18 mcg INH QDAY [facility] Last Admin: 04/28/19 11:04 Dose: Not Given Documented by: - ABG Interpretation ABG results: 04/24/19 14:26 ABG Methemoglobin 0.3 L VBG pH 7.39 VBG pCO2 44.2 VBG pO2 129 H VBG HCO3 26.3 VBG Total CO2 27.6 VBG O2 Saturation 91.3 H VBG Base Excess 1.1 Medical - PN: A/P - Time Spent With Patient Total time spent is greater than 50% in coordination of care (as documented) at patient's floor/unit and/or counseling patient: - Narrative A/P Narrative: A: *Acute hypoxic/hypercapnic respiratory failure 2/2 Aspiration pneumonitis/AECOPD: -4L NC which is baseline, but increased need this morning concern for aspiration -f/u CXR with worsened RLL infiltrates *Parainfluenza 3: *Likely Aspiration Pneumonitis/PNA: *AECOPD (3-5L@home): 2/2 above -Remains a very high risk mortality. -CT neg for PE *Oropharyngeal Dysphagia, Moderate: *Hyponatremia, Euvolemic, acute on chronic: Resolved *Hypokalemia/Mag/Phos: Improved *Severe protein calorie malnutrition/frailty: *Alcoholism/Alcohol intoxication: -12 beers a day. Has no desire to quit, started beer with meals for now, to help with his cravings. *CAD: *HTN: *BPH: on tamsulosin *Paraplegia: continue frequent turning/specialty bed to prevent decubitus *GERD on PPI *Anxiety/Depression: *Appears to have some degree of cognitive dysfunction: 2/2 alcoholism vs vascular dementia -Brain MRI (01/2018) with severe white matter dz suspected from small vessel ischemic dz *Tobacco abuse: *goals of care: Poor prognosis given Etoh/tobacco abuse, poor functional status, other comorbidities and high risk for readmissions Plan: -zosyn, -steroids(wean)/bronchodilators/supplemental oxygen -IS/Acapella, CPT for mucous plugging -f/u CXR -Protein calorie supplements/multivitamins/minerals/Dietary consult -PO thiamine, folic acid, CIWA protocol for now -prn electrolyte replacement -pt/ot/ST -dysphagia diet per ST, pending video swallow -continue Plavix/BB/statin -losartan/amlodipine(decrease)/bisoprolol -Hospice eval and care conference with case management and POA -f/u outpt with Dr. Colindres. -f/u outpt with urology as scheduled -Smoking cessation counseling -ppx: Heparin/home ppi DNR
[2019-04-29] MEDS: PANTOPRAZOLE 40 MG TABLET PO SCH ×2 (07:36→16:31)
--- NOTE | 2019-04-29 08:27 | XRay Report ---
INDICATION: Dyspnea TECHNIQUE: AP chest x-ray,portable semiupright COMPARISON: Previous chest x-rays dated 04/27/2019, 04/24/2019 FINDINGS:Bilateral, bibasilar pulmonary parenchymal infiltrates, right worse than left. Infiltrates are worse than on previous examination. Findings are consistent with pneumonia. No change in heart size or vascularity. Denise and mediastinum are negative. No evidence for congestive heart failure. IMPRESSION: 1. Bilateral, bibasilar infiltrates. Infiltrates are worse at the right base of the left 2. Findings are consistent with pneumonia. Chest x-ray is worse than on 04/27/2019 Interpreted and Authenticated by: Cristi Jennings 04/29/19
[2019-04-29 08:36] LABS: ALT/SGPT 29 U/l (0-40); AST/SGOT 17 U/l (0-37); Albumin 2.2 gm/dL (3.2-5.2); Albumin/Globulin Ratio 0.6 (1.0-2.3); Alkaline Phosphatase 104 U/L (39-117); Bilirubin,Direct < 0.2 mg/dL (0.0-0.3); Bilirubin,Total 0.2 mg/dL (0.0-1.0); Blood Urea Nitrogen 8 mg/dl (8-23); Calcium 9.2 mg/dl (8.6-10.4); Carbon Dioxide 27 mmol/L (22-30); Chloride 96 mmol/L (96-108); Globulin 3.5 gm/dL (2.2-3.7); Glomerular Filtration Rate 127; Glucose 114 mg/dL (70-105); Lactate Dehydrogenase 173 U/L (94-250); Magnesium 1.9 mg/dL (1.6-2.5); Phosphorous 2.8 mg/dL (2.7-4.5); Potassium 3.3 mmol/L (3.3-5.1); Sodium 136 mmol/L (133-145); Triglycerides 117 mg/dl (<150); Uric Acid 1.2 mg/dL (2.5-8.0)
[2019-04-29] MEDS: LORazepam 2 MG/ML VIAL IV PRN (09:00)
[2019-04-29 09:31] LABS: Eosinophils % (Auto) 0 % (0.0-7.0); Hematocrit 35.8 % (41.0-55.0); Hemoglobin 11.6 g/dL (13.5-16.5); Mean Cell Volume 98.1 fL (80.0-100.0); Mean Corpuscular HGB Conc 32.4 g/dL (31.0-36.0); Monocytes % (Auto) 0 % (1.0-12.0); Platelet Count 563 K/mcL (140-440); RBC 3.65 M/mcL (4.50-5.90)
[2019-04-29 10:03] LABS: Anisocytosis 1+ (NONE SEEN); Band Neutrophils % 1 % (0-10); Lymphocytes % 7 % (15-49); Platelet Estimate INCREASED (NORMAL); RBC Morphology ABNORM (NORMAL); Segmented Neutrophils % 92 % (38-78)
[2019-04-29] MEDS: predniSONE 10 MG TABLET PO SCH (10:09)
[2019-04-29] MEDS: CLOPIDOGREL 75 MG TABLET PO SCH (10:10)
[2019-04-29] MEDS: TAMSULOSIN 0.4 MG CAPSULE PO SCH (10:11)
[2019-04-29] MEDS: HEPARIN 5,000 UNIT/ML VIAL SQ SCH ×2 (10:11→20:09)
[2019-04-29] MEDS: TIOTROPIUM BROMIDE 18 MCG INHALANT INH SCH (10:12)
[2019-04-29] MEDS: NICOTINE 21 MG PATCH TOPICAL SCH (10:12)
[2019-04-29] MEDS: CALCIUM W/VIT D3 500 MG TABLET PO SCH ×2 (10:15→20:09)
[2019-04-29] MEDS: DOCUSATE SODIUM 100 MG CAPSULE PO SCH ×2 (10:15→20:09)
[2019-04-29] MEDS: CYANOCOBALAMIN (VITAMIN B-12) 500 MCG TABLET PO SCH (10:19)
[2019-04-29] MEDS: THIAMINE 100 MG TABLET PO SCH (10:19)
[2019-04-29] MEDS: PYRIDOXINE 100 MG TABLET PO SCH (10:19)
[2019-04-29 11:23] LABS: proBNP 617.8 pg/ml (0-125)
[2019-04-29] MEDS: BISOPROLOL 5 MG TABLET PO SCH (12:47)
[2019-04-29] MEDS: LOSARTAN 50 MG TABLET PO SCH (12:47)
[2019-04-29] MEDS: amLODIPine 5 MG TABLET PO SCH (12:47)
[2019-04-29] MEDS: ATORVASTATIN 20 MG TABLET PO SCH (14:24)
[2019-04-29] MEDS: MELATONIN 3 MG TABLET PO SCH (20:08)
[2019-04-29] MEDS: FOLIC ACID/VITAMIN B COMP W-C 1 TAB TABLET PO SCH (20:09)
[2019-04-29] MEDS: SENNOSIDES 1 TABLET PO SCH (20:09)
[2019-04-29] MEDS: FAMOTIDINE 20 MG TABLET PO SCH (20:09)
[2019-04-30] MEDS: IPRATROPIUM/ALBUTEROL 3 ML AMPUL.NEB NEB SCH ×3 (02:32→11:45)
[2019-04-30] MEDS: PIPERACILLIN SODIUM/TAZOBACTAM 3.375 GM in DEXTROSE 5% IN WATER 50 ML IV SCH ×2 (05:20→11:29)
[2019-04-30] MEDS: 0.9 % SODIUM CHLORIDE 10 ML SYRINGE IV SCH ×2 (05:20→12:29)
[2019-04-30 06:43] LABS: ALT/SGPT 27 U/l (0-40); AST/SGOT 20 U/l (0-37); Albumin 2.3 gm/dL (3.2-5.2); Albumin/Globulin Ratio 0.7 (1.0-2.3); Alkaline Phosphatase 109 U/L (39-117); Bilirubin,Direct < 0.2 mg/dL (0.0-0.3); Bilirubin,Total 0.3 mg/dL (0.0-1.0); Blood Urea Nitrogen 9 mg/dl (8-23); Calcium 9.4 mg/dl (8.6-10.4); Carbon Dioxide 27 mmol/L (22-30); Chloride 97 mmol/L (96-108); Globulin 3.3 gm/dL (2.2-3.7); Glomerular Filtration Rate 127; Glucose 109 mg/dL (70-105); Lactate Dehydrogenase 188 U/L (94-250); Magnesium 1.9 mg/dL (1.6-2.5); Phosphorous 1.8 mg/dL (2.7-4.5); Potassium 3.1 mmol/L (3.3-5.1); Sodium 134 mmol/L (133-145); Triglycerides 118 mg/dl (<150); Uric Acid 1.4 mg/dL (2.5-8.0)
--- NOTE | 2019-04-30 07:48 | Internal Med Progress Note ---
Medical - PN: Subj Patient information: Note initiated : 04/30/19 at 7:41 am Service Date, if different from initiated Date: [] Patient: Ankit Gandhi a 63 y/o M admitted on 04/24/19 for Shortness of breath. Chief Complaint: [] Interval history: Mr. Gandhi is a 63 year old M with h/o severe copd, on 3-4 L oxygen at baseline, paraplegic, heavy etoh use, presents to the emergency room today for evaluation of shortness of breath. The patient was discharged from this facility 5 days ago on the of this month. At that time according to the notes patient was breathing fairly well and the patient confirms that. He however notes that he has been short of breath for nearly a week. This afternoon his condition deteriorated suddenly he was very short of breath and therefore he came to the emergency room. He has cough but is unable to bring up any sputum, he denies any chest pain or chest tightness denies any headache dizziness changes in vision or difficulty in swallowing. Denies any fever or chills any abdominal pain, he has not had bowel movements for the last 2 days. He has a chronic indwelling Sanchez catheter does have a history of recurrent urine tract infections. Patient is paraplegic and unable to move his lower extremities according to the family there is some problem with the blood supply to the spinal cord and they have seen an interventional radiologist for same. On presenting to the emergency room patient was significantly hypoxic with oxygen saturation in the 50s, he has a low-grade temperature 91.3. On my evaluation patient was hemodynamically stable heart rate 77 blood pressure 132/71 he was saturating 95% on 8 L of oxygen. Patient's labs show leukocytosis 16.7 hemoglobin 13.1 platelets 657. Sodium is 121 potassium 5.2 bicarbonate 25 creatinine 0.4 alcohol level is 0.138. The patient on my evaluation was tachypneic, on 8 L of oxygen. Blood gas was done which appears to be mixed but is reported as venous pH 7.39 PCO2 44 PO2 was 129 and O2 sat 90%. Patient has declined BiPAP use noting that he is significantly claustrophobic and would not use one. He is also not happy with the oxygen mask that is on right now. He is declined BiPAP in the past. His sister is by the bedside. I explained to him that should his condition worsen would he want us to try some medications and BiPAP and he declined. The patient actively smokes as well as drinks heavily up to 12 beers a day. I reiterated his overall poor prognosis because of active smoking as well as heavy alcohol use in light of his comorbidities. They verbalized understanding. Patient does wish treatment to relieve his symptoms notes that he does not wish to and would like treatment to help him, he lives by himself with a infant childcare provider, who bring him his alcohol Patient is going to be admitted to PCU status 04/25 Patient seen and examined, no acute overnight events, his sodium level improved significantly just with IV fluids, 130 last night. Was switched to D5 water however this morning sodium level is still gone up to 133. I am going to increase the rate of D5 water 200 cc and recheck labs this afternoon Patient notes that his breathing is much better. He is presently on high flow nasal cannula oxygen Labs show improved WBC count Chest CT shows bilateral pneumonia, vancomycin was added yesterday 04/26 Patient seen and examined, no acute overnight events. Weaned down to 3 L of ox ygen now. Hemodynamically stable, clinically has shown signs of improvement. WBC has worsened but could be secondary to steroids Cultures are negative so far. Patient is responding to antibiotic treatment. Transfer to [facility] status. Sodium level is 134. Discontinue D5 water now 04/27 Pt seen examined, no acute issues, still has cough and shortness of breath, but improved since admission. He is very anxious to go home. After long discussion it seems that he still has a desire to drink alcohol. Given the fact that his WBC count is trending up today, procalcitonin is 0.18 I believe it would be prudent for him to stay in the hospital for further monitoring and continuation of IV antibiotic therapy. The patient is willing to stay and I have offered an beer with meals. 04/28 No issues overnight patient was placed on 7 L last night. Has an occasional cough nonproductive. Denies shortness of breath this time. Has headache. Almost left AMA several days ago. Some times patient not cooperative with medications. Seen by speech therapy and concern for aspiration. 04/29 Was doing well on his 4 L this morning until about 730 when he started dropping his saturations and required high flow nasal cannula. Chest x-ray with right- sided infiltrates worsening. Concerning for aspiration. Recent states he coughs after coffee or water. Does not like thickened drinks. Discussed hospice with him and he seemed amenable. Is been on hospice in the past. States he just wants to at home. Care conference today with case management and power of securities attorney. Has cough of white sputum but denies shortness of breath 04/30 Feeling well. Has a minimal cough. Denies any real shortness of breath. No overnight events. Wanting to go home. Family discussion and patient discussion yesterday resulted in hospice plans. review of Systems: denies fever/chills/nausea/vomiting/chest or abdominal pain/diarrhea. Otherwise see above. - Constitutional Vitals: Vital Signs Temp Pulse Resp BP Pulse Ox 97.8 F 90 22 130/73 92 04/30/19 07:04 04/30/19 07:04 04/30/19 07:04 04/30/19 07:04 04/30/19 07:04 Period Temp Pulse Resp BP Sys/Hensley Pulse Ox Last 24 Hr 97.6 F-98.6 F 77-112 18-22 115-133/70-79 90-96 Intake and Output 04/29/19 04/30/19 04/30/19 21:59 05:59 13:59 Intake Total 340 450 50 Output Total 650 550 Balance -310 -100 50 Weight 47.4 kg Intake & Output: Intake & Output 04/29/19 04/30/19 04/30/19 21:59 05:59 13:59 Intake Total 340 450 50 Output Total 650 550 Balance -310 -100 50 Weight 47.4 kg Intake: IV 100 50 50 Zosyn 3.375 gm In Dextrose 5% 100 50 50 in Water 50 ml @ 100 mls/hr IV Q6H [facility] Rx#:[id number] Oral 240 400 Output: Urine Catheter Amount 650 550 Other: Urine Appearance Clear Urine Color Bright Yellow Urine Odor Normal Exam: General: Alert, Awake, No acute Distress, cachectic Eyes/N/T: EOMI, Head/Neck: neck supple, CV: RRR, No murmurs, Pulm: Diminished right base, no wheezing Abd: soft, nontender, +BS x4 Ext: no clubbing/cyanosis/edema Neuro: Alert, paraplegic lower extremities previous condition Skin: warm/dry Medical - PN: Obj Da - Labs CBC & Chem 7: 04/29/19 04:26 04/30/19 04:25 Labs: Abnormal Lab Results 04/30/19 04/29/19 04/29/19 04:25 10:12 04:26 WBC RBC Hgb Hct RDW Plt Count MPV Gran % Lymph % (Auto) [place] % (Auto) Seg Neutrophils % 92 H Lymphocytes % 7 L Platelet Estimate Increased A RBC Morphology Abnorm A Anisocytosis 1+ A Potassium 3.1 L BUN Creatinine 0.4 L Glucose 109 H Uric Acid 1.4 L Phosphorus 1.8 L GGT NT-Pro-B Natriuret Pep 617.8 H Total Protein 5.6 L Albumin 2.3 L Albumin/Globulin Ratio 0.7 L 04/29/19 04/29/19 04/28/19 04:26 04:26 04:48 WBC 22.0 H 21.1 H RBC 3.65 L 3.57 L Hgb 11.6 L 11.3 L Hct 35.8 L 34.3 L RDW 17.0 H 16.9 H Plt Count 563 H 670 H MPV 7.0 L 6.8 L Gran % 93.0 H Lymph % (Auto) 7.0 L [place] % (Auto) 0 L Seg Neutrophils % 86 H Lymphocytes % 8 L Platelet Estimate Increased A RBC Morphology Abnorm A Anisocytosis 1+ A Potassium BUN Creatinine 0.4 L Glucose 114 H Uric Acid 1.2 L Phosphorus GGT 66 H NT-Pro-B Natriuret Pep Total Protein 5.7 L Albumin 2.2 L Albumin/Globulin Ratio 0.6 L 04/28/19 04/27/19 04:48 04:12 WBC RBC Hgb Hct RDW Plt Count MPV Gran % Lymph % (Auto) [place] % (Auto) Seg Neutrophils % 96 H Lymphocytes % 1 L Platelet Estimate Increased A RBC Morphology Anisocytosis 1+ A Potassium BUN 7 L Creatinine 0.4 L Glucose Uric Acid 1.4 L Phosphorus 0.5 L GGT 74 H NT-Pro-B Natriuret Pep Total Protein 5.4 L Albumin 2.5 L Albumin/Globulin Ratio 0.9 L Meds: Medications Acetaminophen (Tylenol) 650 mg PO Q4-6HP PRN PRN Reason: PAIN/FEVER > 101 Last Admin: 04/27/19 18:43 Dose: 650 mg Documented by: Al Hydrox/Mg Hydrox/Simethicone (Maalox) 30 ml PO Q4-6HP PRN PRN Reason: Dyspepsia Albuterol Sulfate (Ventolin) 2.5 mg NEB Q2HP PRN PRN Reason: Shortness Of Breath Albuterol/Ipratropium (Duoneb) 3 ml NEB Q4HRT [facility] Last Admin: 04/30/19 02:32 Dose: 3 ml Documented by: Amlodipine Besylate (Norvasc) 2.5 mg PO QDAY [facility] Last Admin: 04/29/19 12:47 Dose: Not Given Documented by: Atorvastatin Calcium (Lipitor) 10 mg PO DAILY [facility] Last Admin: 04/29/19 14:24 Dose: Not Given Documented by: Bisacodyl (Dulcolax) 10 mg HI Q2-3DAYS PRN PRN Reason: Constipation Bisoprolol Fumarate (Zebeta) 5 mg PO QDAY [facility] Last Admin: 04/29/19 12:47 Dose: Not Given Documented by: Calcium/Vitamin D (Calcium W/Vit D3) 500 mg PO BID [facility] Last Admin: 04/29/19 20:09 Dose: 500 mg Documented by: Clopidogrel Bisulfate (Plavix) 75 mg PO QDAY [facility] Last Admin: 04/29/19 10:10 Dose: 75 mg Documented by: Cyanocobalamin (Vitamin B-12) 500 mcg PO QDAY [facility] Last Admin: 04/29/19 10:19 Dose: Not Given Documented by: Docusate Sodium (Colace) 100 mg PO BID [facility] Last Admin: 04/29/19 20:09 Dose: 100 mg Documented by: Famotidine (Pepcid) 20 mg PO HS [facility] Last Admin: 04/29/19 20:09 Dose: 20 mg Documented by: Heparin Sodium (Porcine) (Heparin) 5,000 unit SQ Q12 [facility] Last Admin: 04/29/19 20:09 Dose: 5,000 unit Documented by: Piperacillin Sod/Tazobactam (Sod 3.375 gm/ Dextrose) 50 mls @ 100 mls/hr IV Q6H [facility]; Protocol Last Infusion: 04/30/19 06:00 Dose: Infused Documented by: Lorazepam (Ativan) 0 mg IV Q4HP PRN; Protocol PRN Reason: Alcohol Withdrawal Last Admin: 04/28/19 12:16 Dose: 2 mg Documented by: Lorazepam (Ativan) 2 mg IV Q4-6HP PRN PRN Reason: ANXIETY/SEDATION Last Admin: 04/29/19 09:00 Dose: 2 mg Documented by: Losartan Potassium (Cozaar) 100 mg PO DAILY [facility] Last Admin: 04/29/19 12:47 Dose: Not Given Documented by: Magnesium Hydroxide (Milk Of Magnesia) 30 ml PO DAILYP PRN PRN Reason: Constipation Melatonin (Melatonin 3mg Tablet) 6 mg PO [facility] Last Admin: 04/29/19 20:08 Dose: 6 mg Documented by: Multivit/Ca Carb/B Cmplx/FA/Prenat (Diatx) 1 tab PO [facility] Last Admin: 04/29/19 20:09 Dose: 1 tab Documented by: Naloxone HCl (Narcan) 0.1 mg IV Q2MIN PRN PRN Reason: Opiate Reversal Nicotine (Nicoderm) 21 mg TOPICAL DAILY@1000 [facility] Last Admin: 04/29/19 10:12 Dose: 21 mg Documented by: Ondansetron HCl (Zofran) 4 mg IV Q4-6HP PRN PRN Reason: Nausea And Vomiting Pantoprazole Sodium (Protonix) 40 mg PO BIDAC [facility] Last Admin: 04/29/19 16:31 Dose: 40 mg Documented by: Budesonide/Formoterol Fumarate [Symbicort 160-4.5 Mcg Inhaler] 1 dose INH BID [facility] Last Admin: 04/29/19 20:10 Dose: Not Given Documented by: Prednisone (Prednisone) 40 mg PO [facility] Last Admin: 04/29/19 10:09 Dose: 40 mg Documented by: Promethazine HCl (Phenergan) 12.5 mg IV Q4-6HP PRN PRN Reason: Nausea And Vomiting Pyridoxine HCl (Vitamin B-6) 100 mg PO DAILY [facility] Last Admin: 04/29/19 10:19 Dose: Not Given Documented by: Senna (Senokot) 2 tab PO [facility] Last Admin: 04/29/19 20:09 Dose: 2 tab Documented by: Sodium Biphosphate/Sodium Phosphate (Fleets Adult) 1 dose HI Q3-4DAYS PRN PRN Reason: Constipation Sodium Chloride (Saline Flush) 10 ml IV Q8 [facility] Last Admin: 04/30/19 05:20 Dose: 10 ml Documented by: Tamsulosin HCl (Flomax) 0.4 mg PO QDAY [facility] Last Admin: 04/29/19 10:11 Dose: 0.4 mg Documented by: Thiamine HCl (Vitamin B1) 100 mg PO DAILY [facility] Stop: 05/02/19 11:59 Last Admin: 04/29/19 10:19 Dose: Not Given Documented by: Tiotropium [place] (Spiriva) 18 mcg INH QDAY [facility] Last Admin: 04/29/19 10:12 Dose: Not Given Documented by: - ABG Interpretation ABG results: 04/24/19 14:26 ABG Methemoglobin 0.3 L VBG pH 7.39 VBG pCO2 44.2 VBG pO2 129 H VBG HCO3 26.3 VBG Total CO2 27.6 VBG O2 Saturation 91.3 H VBG Base Excess 1.1 Medical - PN: A/P - Time Spent With Patient Total time spent is greater than 50% in coordination of care (as documented) at patient's floor/unit and/or counseling patient: - Narrative A/P Narrative: A: *Acute hypoxic/hypercapnic respiratory failure 2/2 Aspiration pneumonitis/AECOPD: -4L NC is baseline and has been recently but then likely had aspiration event and now on High Flow -f/u CXR with worsened RLL infiltrates *Parainfluenza 3: *Likely Aspiration Pneumonitis/PNA: *AECOPD (3-5L@home): 2/2 above -Remains a very high risk mortality. -CT neg for PE *Oropharyngeal Dysphagia, Moderate: *Hyponatremia, Euvolemic, acute on chronic: Resolved *Hypokalemia/Mag/Phos: Improved *Severe protein calorie malnutrition/frailty/FTT: *Alcoholism/Alcohol intoxication: -12 beers a day. Has no desire to quit, started beer with meals for now, to help with his cravings. *CAD: *HTN: *BPH: on tamsulosin *Paraplegia: continue frequent turning/specialty bed to prevent decubitus *GERD on PPI *Anxiety/Depression: *Appears to have some degree of cognitive dysfunction: 2/2 alcoholism vs vascular dementia -Brain MRI (01/2018) with severe white matter dz suspected from small vessel ischemic dz *Tobacco abuse: *goals of care: Poor prognosis given Etoh/tobacco abuse, Failure to thrive, poor functional status, other comorbidities and high risk for readmissions Plan: -zosyn, to levaquin/flagyl -steroids(wean)/bronchodilators/supplemental oxygen -IS/Acapella, CPT for mucous plugging -Protein calorie supplements/multivitamins/minerals/Dietary consult -PO thiamine, folic acid, CIWA protocol for now -prn electrolyte replacement -pt/ot/ST -dysphagia diet per ST, pending video swallow -continue Plavix/BB/statin -losartan/amlodipine(decrease)/bisoprolol -Hospice eval and care conference with case management and POA >> transitioning to Hospice at home -f/u outpt with Dr. Colindres. -f/u outpt with urology as scheduled -Smoking cessation counseling -ppx: Heparin/home ppi DNR
[2019-04-30] MEDS: HEPARIN 5,000 UNIT/ML VIAL SQ SCH (08:52)
[2019-04-30] MEDS: NICOTINE 21 MG PATCH TOPICAL SCH (08:52)
[2019-04-30] MEDS: LOSARTAN 50 MG TABLET PO SCH (08:53)
[2019-04-30] MEDS: ATORVASTATIN 20 MG TABLET PO SCH (08:53)
[2019-04-30] MEDS: PANTOPRAZOLE 40 MG TABLET PO SCH (08:53)
[2019-04-30] MEDS: predniSONE 10 MG TABLET PO SCH (08:53)
[2019-04-30] MEDS: CLOPIDOGREL 75 MG TABLET PO SCH (08:53)
[2019-04-30] MEDS: TAMSULOSIN 0.4 MG CAPSULE PO SCH (08:54)
[2019-04-30] MEDS: CALCIUM W/VIT D3 500 MG TABLET PO SCH (08:54)
[2019-04-30] MEDS: PYRIDOXINE 100 MG TABLET PO SCH (08:54)
[2019-04-30] MEDS: THIAMINE 100 MG TABLET PO SCH (08:54)
[2019-04-30] MEDS: CYANOCOBALAMIN (VITAMIN B-12) 500 MCG TABLET PO SCH (08:54)
[2019-04-30] MEDS: DOCUSATE SODIUM 100 MG CAPSULE PO SCH (08:54)
[2019-04-30] MEDS: amLODIPine 5 MG TABLET PO SCH (08:54)
[2019-04-30] MEDS: BISOPROLOL 5 MG TABLET PO SCH (08:54)
[2019-04-30] MEDS: TIOTROPIUM BROMIDE 18 MCG INHALANT INH SCH (08:55)
[2019-05-01] MEDS ORDERED: predniSONE 10 MG TABLET PO SCH (08:00)
== END 2019-04-30 14:35 | disposition hospice, home (50) | DRG 190 ==
LOC: ED 13:41 → ICU 17:22 → MEDSUR 04-26 11:45
PROVIDERS: ADMIT Internal Medicine; ATTEND Internal Medicine